=== PATIENT | female | born 1970 | race Caucasian/White ===

== ENCOUNTER 2017-09-29 05:28 | Inpatient (IN) ==
[2017-09-29] MEDS ORDERED: *HR* LORazepam 2 MG/ML VIAL IM ONE (05:43)
[2017-09-29] MEDS ORDERED: Haloperidol Lactate 5 MG/ML VIAL IM ONE (05:43)
[2017-09-29] MEDS ORDERED: 0.9 % Sodium Chloride 1,000 ML IVC ONE ×3 (05:59→15:12)
[2017-09-29 06:09] LABS: Basophils % 0.2 %; Hematocrit 39.2 % (35.3-44.9); Hemoglobin 13.5 g/dL (11.5-15.4); Immature Granulocytes % 0.4 % (0-4); Lymphocytes # 1.6 K/mcL (0.6-4.6); Lymphocytes % 15.2 %; Mean Corpuscular HGB Conc 34.4 g/dL (31.6-35.5); Mean Corpuscular Hemoglobin 29.5 pg (28.0-33.3); Mean Corpuscular Volume 85.8 fL (83.0-100.0); Mean Platelet Volume 9.8 fL (9.4-12.4); Monocytes # 0.6 K/mcL (0.0-1.3); Monocytes % 5.3 %; Neutrophils # 8.4 K/mcL (1.6-8.9); Platelet Count 235 K/mcL (140-400); Red Blood Count 4.57 M/mcL (3.82-4.97); Red Cell Distribution Width 12.7 % (11.5-14.5); Segmented Neutrophils % 78.9 %
[2017-09-29 06:17] LABS: INR 1.1
[2017-09-29] MEDS ORDERED: *HR* LORazepam 2 MG/ML VIAL ONE (06:17)
[2017-09-29 06:18] LABS: Bilirubin,Urine Negative (Negative); Blood,Urine Trace (Negative); Clarity,Urine Clear (Clear); Color,Urine Yellow (Yellow); Glucose,Urine (UA) Normal (Normal); Ketones,Urine Negative (Negative); Leukocyte Esterase,Urine Negative (Negative); Nitrite,Urine Negative (Negative); Protein,Urine Negative (Neg-Trace); Urobilinogen,Urine Normal (Normal)
[2017-09-29 06:19] LABS: Activated Partial Thrombo Time 30.2 Seconds (26.0-36.0)
[2017-09-29] MEDS ORDERED: *HR* LORazepam 2 MG/ML VIAL IVP ONE ×3 (06:19→08:25)
[2017-09-29 06:21] LABS: Bacteria,Urine None Seen per hpf (None-Few); Hyaline Casts,Urine None Seen per lpf (None-Few); RBC,Urine 0-3 per hpf (0-3); Squamous Epithelial Cell,Urine Many per lpf (None-Few); WBC,Urine 0-3 per hpf (0-3)
--- NOTE | 2017-09-29 06:21 | Emergency Department Note ---
Disposition Clinical Impression: Altered mental status Qualifiers: Altered mental status type: unspecified Qualified Code(s): R41.82 - Altered mental status, unspecified Disposition: Still a Patient Condition: Fair Referrals: Haja Loyd PAC [Primary Care Provider] - Forms: ED Satisfaction Letter Time of Disposition: 06:27 Altered Mental Status HPI - General Chief Complaint: ED Altered Mental Status Stated Complaint: altered mental status Time Seen by Provider: 09/29/17 05:42 Source: EMS Limitations: altered mental status Nursing Notes Reviewed: Yes Vital Signs Reviewed: Yes - History of Present Illness MD complaint: altered mental status Onset (ago): unknown Context: drug abuse, seizure disorder, history psychiatric disease, unknown, other (squad reports pt is known IVDU, with h/o seizure disorder, was found altered upon their arrival with household members reporting duration of "hours" ; ) Treatments prior to arrival: EMS treatment/medication - Related Data Home Medications Medication Instructions Recorded Confirmed Albuterol Sulfate [Proair Hfa] 1 - 2 puff IH Q6H 10/16/15 09/15/17 Alprazolam [Xanax] 1 mg PO TID 10/16/15 09/15/17 Budesonide/Formoterol 160/4.5 2 puff IH BID 10/16/15 09/15/17 [Symbicort 160/4.5] Lansoprazole [Prevacid] 30 mg PO HS 10/16/15 09/15/17 Mometasone Furoate [Nasonex] 17 gm NS DAILY 10/16/15 09/15/17 Nitroglycerin [Nitrostat] 0.4 mg SL AD PRN 10/16/15 09/15/17 Ropinirole HCl [Requip] 0.25 mg PO HS 10/16/15 09/15/17 Sertraline [Zoloft] 100 mg PO BID 10/16/15 09/15/17 Tiotropium [Spiriva] 18 mcg IH HS 10/16/15 09/15/17 Topiramate [Topamax] 50 mg PO QAM 10/16/15 09/15/17 Topiramate [Topamax] 100 mg PO HS 10/16/15 09/15/17 Trazodone HCl [TraZODone] 300 mg PO HS 10/16/15 09/15/17 Methocarbamol [Robaxin] 750 mg PO BID 07/30/16 09/15/17 Aspirin [Lo-Dose Aspirin EC] 81 mg PO DAILY 09/15/17 09/15/17 Atorvastatin [Lipitor] 40 mg PO HS 09/15/17 09/15/17 Clopidogrel [Plavix] 75 mg PO DAILY 09/15/17 09/15/17 Etodolac [Lodine] 400 mg PO BID 09/15/17 09/15/17 Folic Acid 0.8 mg PO DAILY 09/15/17 09/15/17 Gabapentin [Neurontin] 800 mg PO QID 09/15/17 09/15/17 HYDROcodone/Acet 10/325 mg [[place] 1 tab PO TID 09/15/17 09/15/17 10-325 mg] OLANZapine [Zyprexa] 10 mg PO DAILY 09/15/17 09/15/17 Allergies Allergy/AdvReac Type Severity Reaction Status Date / Time codeine Allergy Hives Verified 01/07/17 21:10 ondansetron Allergy See Verified 01/07/17 21:10 [From Zofran (as Comments hydrochloride)] propranolol [From Inderal LA] Allergy Hives Verified 01/07/17 21:10 tramadol [From Ultram] Allergy Hives Verified 01/07/17 21:10 ibuprofen AdvReac Nausea Verified 01/07/17 21:10 Limitations: ROS unobtainable due to patients medical condition Past Medical History - Past Medical History Medical history: Reports: COPD, coronary artery disease, CVA, GERD, hypertension , myocardial infarction Surgical history: Reports: angioplasty/stent, cholecystectomy, herniorrhaphy, hysterectomy, orthopedic, other Psychiatric history: Reports: anxiety, bipolar, depression, panic disorder, PTSD , prior suicide attempt [employer] history: Reports: bilateral tubal ligation - Social History Smoking Status: Current every day smoker Smokeless Tobacco Status: No Alcohol use: Reports: rarely Drug use: Reports: marijuana Physical Exam - General Limitations: altered mental status General appearance: alert, appears intoxicated, other - Head Head exam: atraumatic - Eye Eye exam: Absent: conjunctival injection - ENT ENT exam: normal oropharynx - Chest Chest inspection: Present: symmetric chest wall rise - Respiratory Respiratory exam: Absent: respiratory distress - Cardiovascular Cardiovascular exam: Present: tachycardia - Abdominal Exam Abdominal exam: Present: scar - Expanded Upper Extremity Exam Hand exam: Present: laceration (right hand, no active bleeding) - Back Exam Back exam: Present: full ROM - Skin Skin exam: Present: warm, dry Course Course Narrative: Pt see upon her arrival to exam room. Squad reports h/o IVDU, seizure disorder. She appears altered. Not responding to commands, verbaling but incoherent, agitated attempting to get out of bed. There is evidence of urinary incontinence. Tongue normal in appearance. Pupils not pinpoint. No evidence of airway compromise, or respiratory distress. 3cm Laceration to right palm with dried blood no active bleeding, otherwise no evidence of injury or trauma to face extremities . Pt is tachy and hypertensive. Will plan soft and chemical restraints and AMS workup. EKG shows SVT. Records and EKG reviewed with Dr. Luke, pt has known h/o of SVT. - Reevaluation(s) Reevaluation #1: Due to shift change care of this patient will be transferred to day shift provider Pauline Torres PA-C please see her documentation for details. Time: 06:27 Vital Signs Temperature 99.0 F 09/29/17 05:29 Pulse Rate 145 09/29/17 05:29 Respiratory Rate 20 09/29/17 05:29 Blood Pressure 188/135 09/29/17 05:29 O2 Sat by Pulse Oximetry 96 09/29/17 05:29 Temperature 99.0 F 09/29/17 05:29 Pulse Rate 145 09/29/17 05:29 Respiratory Rate 20 09/29/17 05:29 Blood Pressure 188/135 09/29/17 05:29 O2 Sat by Pulse Oximetry 96 09/29/17 05:29 Oxygen Delivery Oxygen Delivery Room Air Altered Mental Status - Medical Records Medical records reviewed: Yes I reviewed the patient's medical records. - Lab Data Result diagrams: 09/29/17 06:00 Lab Results 09/29/17 09/29/17 09/29/17 Range/Units 05:44 06:00 06:00 WBC 10.6 (4.3-11.1) K/mcL RBC 4.57 (3.82-4.97) M/mcL Hgb 13.5 (11.5-15.4) g/dL Hct 39.2 (35.3-44.9) % MCV 85.8 (83.0-100.0) fL MCH 29.5 (28.0-33.3) pg MCHC 34.4 (31.6-35.5) g/dL RDW 12.7 (11.5-14.5) % Plt Count 235 (140-400) K/mcL MPV 9.8 (9.4-12.4) fL Immature Gran % 0.4 (0-4) % Seg Neutrophils % 78.9 % Lymphocytes % 15.2 % Monocytes % 5.3 % Eosinophils % 0.0 % Basophils % 0.2 % Neutrophils # 8.4 (1.6-8.9) K/mcL Lymphocytes # 1.6 (0.6-4.6) K/mcL Monocytes # 0.6 (0.0-1.3) K/mcL Eosinophils # 0.0 (0.0-0.6) K/mcL Basophils # 0.0 (0.0-0.2) K/mcL PT 12.0 (9.4-12.1) Seconds INR 1.1 APTT 30.2 (26.0-36.0) Seconds POC Glucose 121 H (58-89) Urine Color (Yellow) Urine Clarity (Clear) Urine pH (5.0-8.0) pH Units Ur Specific [place] (1.010-1.025) Urine Protein (Neg-Trace) mg/dL Urine Glucose (UA) (Normal) mg/dL Urine Ketones (Negative) mg/dL Urine Blood (Negative) Urine Nitrite (Negative) Urine Bilirubin (Negative) Urine Urobilinogen (Normal) mg/dL Ur Leukocyte Esterase (Negative) Urine Microscopic RBC (0-3) per hpf Urine Microscopic WBC (0-3) per hpf Ur Squamous Epith Cells (None-Few) per lpf Urine Bacteria (None-Few) per hpf Hyaline Casts (None-Few) per lpf Ur Culture Indicated? (NO) Urine Test (Negative) Ethyl Alcohol (0-10) mg/dL 09/29/17 09/29/17 09/29/17 Range/Units 06:00 06:06 06:06 WBC (4.3-11.1) K/mcL RBC (3.82-4.97) M/mcL Hgb (11.5-15.4) g/dL Hct (35.3-44.9) % MCV (83.0-100.0) fL MCH (28.0-33.3) pg MCHC (31.6-35.5) g/dL RDW (11.5-14.5) % Plt Count (140-400) K/mcL MPV (9.4-12.4) fL Immature Gran % (0-4) % Seg Neutrophils % % Lymphocytes % % Monocytes % % Eosinophils % % Basophils % % Neutrophils # (1.6-8.9) K/mcL Lymphocytes # (0.6-4.6) K/mcL Monocytes # (0.0-1.3) K/mcL Eosinophils # (0.0-0.6) K/mcL Basophils # (0.0-0.2) K/mcL PT (9.4-12.1) Seconds INR APTT (26.0-36.0) Seconds POC Glucose (58-89) Urine Color Yellow (Yellow) Urine Clarity Clear (Clear) Urine pH 6.0 (5.0-8.0) pH Units Ur Specific [place] 1.010 (1.010-1.025) Urine Protein Negative (Neg-Trace) mg/dL Urine Glucose (UA) Normal (Normal) mg/dL Urine Ketones Negative (Negative) mg/dL Urine Blood Trace H (Negative) Urine Nitrite Negative (Negative) Urine Bilirubin Negative (Negative) Urine Urobilinogen Normal (Normal) mg/dL Ur Leukocyte Esterase Negative (Negative) Urine Microscopic RBC 0-3 (0-3) per hpf Urine Microscopic WBC 0-3 (0-3) per hpf Ur Squamous Epith Cells Many H (None-Few) per lpf Urine Bacteria None Seen (None-Few) per hpf Hyaline Casts None Seen (None-Few) per lpf Ur Culture Indicated? NO (NO) Urine Test Negative (Negative) Ethyl Alcohol < 10 (0-10) mg/dL TPA Checklist - LKW: 3-4.5 hrs Add. Warnings/Precautions Patient/family understanding: The patient/family members have been counseled and understood the risk, benefit , and alternatives of treatment. S.B.A.R. - S.B.A.Anjel Situation: Demographics, MOA Background: Presenting Complaint, Relevant PMH, Meds, & Allergies Assessment: Vital Signs Recommendation: Recommendation based on pending studies, treatments, or consults S.B.A.R. Report Given to: MITZI Up Repor Time: 06:27
[2017-09-29 06:22] LABS: Ethanol < 10 mg/dL (0-10)
[2017-09-29 06:24] LABS: Alanine Aminotransferase 11 Units/L (7-52); Albumin 4.7 g/dL (3.5-5.7); Albumin/Globulin Ratio 1.6 (1.1-2.2); Alkaline Phosphatase 82 Units/L (34-104); Aspartate Amino Transferase 20 Units/L (13-39); BUN/Creatinine Ratio 8 (6-26); Bilirubin,Direct 0.2 mg/dL (0.0-0.2); Bilirubin,Indirect 1.1 mg/dL (0.0-1.2); Bilirubin,Total 1.3 mg/dL (0.3-1.0); Blood Urea Nitrogen 7 mg/dL (6-20); Calcium 9.6 mg/dL (8.6-10.3); Carbon Dioxide 29 mEq/L (23-29); Chloride 103 mEq/L (98-107); Globulin 2.9 g/dL (2.4-3.5); Glucose 130 mg/dL (70-105); Osmolality,Calculated 292 (280-300); Sodium 141 mEq/L (136-145); Total Protein 7.6 g/dL (6.4-8.9); eGFR For African Americans > 60 (> 60); eGFR For Non-African Americans > 60 (> 60)
[2017-09-29 06:24] LABS: Amphetamine Screen,Urine Negative ng/mL (Cutoff=1000); Barbiturate Screen,Urine Negative ng/mL (Cutoff=200); Benzodiazepines Screen,Urine Negative ng/mL (Cutoff=200); Cannabinoid Screen,Urine Positive ng/mL (Cutoff = 50); Cocaine Screen,Urine Negative ng/mL (Cutoff= 300); Opiate Screen,Urine Negative ng/mL (Cutoff=300); Phencyclidine Screen,Urine Negative ng/mL (Cutoff=25)
[2017-09-29] MEDS ORDERED: *HR* Metoprolol 5 MG/5 ML VIAL IVP ONE (06:32)
--- NOTE | 2017-09-29 06:43 | Emergency Department Note ---
Disposition Clinical Impression: Altered mental status Qualifiers: Altered mental status type: unspecified Qualified Code(s): R41.82 - Altered mental status, unspecified Disposition: Still a Patient Condition: Fair General Adult HPI - General Chief complaint: ED Altered Mental Status Stated complaint: altered mental status Time Seen by Provider: 09/29/17 05:42 Source: EMS Limitations: altered mental status Nursing Notes Reviewed: Yes Vital Signs Reviewed: Yes - History of Present Illness Pain Scale: 0 - Related Data Home Medications Medication Instructions Recorded Confirmed Albuterol Sulfate [Proair Hfa] 1 - 2 puff IH Q6H 10/16/15 09/29/17 Alprazolam [Xanax] 1 mg PO TID 10/16/15 09/29/17 Budesonide/Formoterol 160/4.5 2 puff IH BID 10/16/15 09/29/17 [Symbicort 160/4.5] Lansoprazole [Prevacid] 30 mg PO HS 10/16/15 09/29/17 Nitroglycerin [Nitrostat] 0.4 mg SL AD PRN 10/16/15 09/29/17 Ropinirole HCl [Requip] 0.25 mg PO HS 10/16/15 09/29/17 Sertraline [Zoloft] 100 mg PO BID 10/16/15 09/29/17 Tiotropium [Spiriva] 18 mcg IH HS 10/16/15 09/29/17 Topiramate [Topamax] 50 mg PO QAM 10/16/15 09/29/17 Topiramate [Topamax] 100 mg PO HS 10/16/15 09/29/17 Trazodone HCl [TraZODone] 300 mg PO HS 10/16/15 09/29/17 Methocarbamol [Robaxin] 750 mg PO BID 07/30/16 09/29/17 Aspirin [Lo-Dose Aspirin EC] 81 mg PO DAILY 09/15/17 09/29/17 Atorvastatin [Lipitor] 40 mg PO HS 09/15/17 09/29/17 Clopidogrel [Plavix] 75 mg PO DAILY 09/15/17 09/29/17 Etodolac [Lodine] 400 mg PO BID 09/15/17 09/29/17 Folic Acid 0.8 mg PO DAILY 09/15/17 09/29/17 Gabapentin [Neurontin] 800 mg PO QID 09/15/17 09/29/17 Carvedilol 12.5 mg PO BID 09/29/17 09/29/17 Fluticasone Propionate Nasal 1 spr NS DAILY 09/29/17 09/29/17 [Flonase] HYDROcodone/Acet 5/325 mg [[place] 1 tab PO TID PRN 09/29/17 09/29/17 5-325 mg] Isosorbide MONOnitrate (24 HR) 30 mg PO DAILY 09/29/17 09/29/17 [Imdur] Losartan [Cozaar] 25 mg PO DAILY 09/29/17 09/29/17 Mv,Fe,Min/Lutein [A Thru Z Select 1 tab PO DAILY 09/29/17 09/29/17 Women's Tablet] Tolterodine LA (24 HR) [Detrol LA] 2 mg PO DAILY 09/29/17 09/29/17 Allergies Allergy/AdvReac Type Severity Reaction Status Date / Time codeine Allergy Hives Verified 01/07/17 21:10 ondansetron Allergy Rash Verified 09/29/17 07:50 [From Zofran (as hydrochloride)] propranolol [From Inderal LA] Allergy Hives Verified 01/07/17 21:10 tramadol [From Ultram] Allergy Hives Verified 01/07/17 21:10 ibuprofen AdvReac Nausea Verified 01/07/17 21:10 Past Medical History - Past Medical History Medical history: Reports: COPD, coronary artery disease, CVA, GERD, hypertension , myocardial infarction Surgical history: Reports: angioplasty/stent, cholecystectomy, herniorrhaphy, hysterectomy, orthopedic, other Psychiatric history: Reports: anxiety, bipolar, depression, panic disorder, PTSD , prior suicide attempt [employer] history: Reports: bilateral tubal ligation - Social History Smoking Status: Current every day smoker Smokeless Tobacco Status: No Alcohol use: Reports: rarely Drug use: Reports: marijuana Physical Exam - General Limitations: altered mental status General appearance: alert, appears intoxicated, other Course Course Narrative: Care of this patient was assumed from Myra Hanson PA-C. Please refer to his note for assessment and initial interventions. As patient continued to appear restless, and altered mental state, unable to answer any questions. She is agitated, protecting airway, heart rate ranging from 110-150. Multiple medical interventions to help decrease agitation and control heart rate. - Reevaluation(s) Reevaluation #1: Head CT negative, rectal temperature 100.2. Patient was a little less agitation at this time, does respond to painful stimuli. Pupils continue to be constricted, reactive to light. Respirations ~20 min, SP02 94% on RA, 02 2L applied for comfort, continues to protect airway on own. Bilateral lower extremity reflexes hyperreflexive, Babinski normal. Urine drug screen positive for marijuana, no alcohol. Pt on multiple SSRI's, possible serotonin syndrome as differential along with toxidrome of unknown substance. History of sz however, does not appear to be in a sz state or post-ictal state. Large amount UO that is clear yellow to fully bag. Time: 07:30 Reevaluation #2: Patient continues to be extremely agitated requiring benzodiazepine, decision to intubate patient to protect airway for proper sedation for further testing. Patient intubated with a 7.5 tube, 23 cm at the lip, chest x-ray confirmed placement. Patient sedated and intubated at this time respirations 100% oxygen. We will need ICU bed for further management. Spoke with family friend states patient last known well unknown however was exhibiting symptoms at 3:30 this morning. Time: 08:09 Reevaluation #3: Discussed case with the periodontist, agreeable to accept patient. Remains sedated and intubated tolerating while unrestrained. at bedside states last known well was approximately 2230 last night. States has been malaised and laying on the couch stating does not feel well for a few days prior to that. Spouse states did not notice any fevers, chills, coughing, emesis. He does state that she had garbled speech last night around 20-30 however this was no different than nightly routine as she takes medications for sleep that causes this as well. Transfer to ICU Time: 08:28 Vital Signs Temperature 99.0 F 09/29/17 05:29 Pulse Rate 145 09/29/17 05:29 Respiratory Rate 20 09/29/17 05:29 Blood Pressure 188/135 09/29/17 05:29 O2 Sat by Pulse Oximetry 96 09/29/17 05:29 Temperature 101.1 F H 09/29/17 10:00 Pulse Rate 123 09/29/17 12:00 Respiratory Rate 18 09/29/17 12:00 Blood Pressure 151/133 09/29/17 12:00 O2 Sat by Pulse Oximetry 100 09/29/17 12:00 Oxygen Delivery Oxygen Delivery [0746] Ambu Bag Oxygen Delivery [0742] Nasal Cannula Oxygen Delivery Ventilator Medical Decision Making - Lab Data Result diagrams: 09/29/17 06:00 09/29/17 06:00 Lab Results 09/29/17 09/29/17 09/29/17 Range/Units 05:44 06:00 06:00 WBC 10.6 (4.3-11.1) K/mcL RBC 4.57 (3.82-4.97) M/mcL Hgb 13.5 (11.5-15.4) g/dL Hct 39.2 (35.3-44.9) % MCV 85.8 (83.0-100.0) fL MCH 29.5 (28.0-33.3) pg MCHC 34.4 (31.6-35.5) g/dL RDW 12.7 (11.5-14.5) % Plt Count 235 (140-400) K/mcL MPV 9.8 (9.4-12.4) fL Immature Gran % 0.4 (0-4) % Seg Neutrophils % 78.9 % Lymphocytes % 15.2 % Monocytes % 5.3 % Eosinophils % 0.0 % Basophils % 0.2 % Neutrophils # 8.4 (1.6-8.9) K/mcL Lymphocytes # 1.6 (0.6-4.6) K/mcL Monocytes # 0.6 (0.0-1.3) K/mcL Eosinophils # 0.0 (0.0-0.6) K/mcL Basophils # 0.0 (0.0-0.2) K/mcL PT 12.0 (9.4-12.1) Seconds INR 1.1 APTT 30.2 (26.0-36.0) Seconds ABG pH (7.32-7.45) pH Units ABG pCO2 (35-45) mmHg ABG pO2 (85-104) mmHg ABG HCO3 (21-27) mEq/L ABG Total CO2 (20-26) mEq/L ABG O2 Saturation (95-98) % ABG Base Excess (-2 to 3) mEq/L Respiration Rate O2 Delivery Device Blood Gas Modality Inspired O2 (1-15=lpm [id number]=%) Tidal Volume cc PEEP cm H2O Sodium (136-145) mEq/L Potassium (3.5-5.1) mEq/L Chloride (98-107) mEq/L Carbon Dioxide (23-29) mEq/L BUN (6-20) mg/dL Creatinine (0.60-1.20) mg/dL Est GFR ( Amer) (> 60) Est GFR (Non-Af Amer) (> 60) BUN/Creatinine Ratio (6-26) Glucose (70-105) mg/dL POC Glucose 121 H (58-89) Calculated Osmolality (280-300) Calcium (8.6-10.3) mg/dL Magnesium (1.6-2.6) mg/dL Total Bilirubin (0.3-1.0) mg/dL Direct Bilirubin (0.0-0.2) mg/dL Indirect Bilirubin (0.0-1.2) mg/dL AST (13-39) Units/L ALT (7-52) Units/L Alkaline Phosphatase (34-104) Units/L Creatine Kinase (30-223) Units/L Troponin I (< 0.04) ng/mL Serum Total Protein (6.4-8.9) g/dL Albumin (3.5-5.7) g/dL Globulin (2.4-3.5) g/dL Albumin/Globulin Ratio (1.1-2.2) TSH (0.340-5.600) mcIU/mL Urine Color (Yellow) Urine Clarity (Clear) Urine pH (5.0-8.0) pH Units Ur Specific [place] (1.010-1.025) Urine Protein (Neg-Trace) mg/dL Urine Glucose (UA) (Normal) mg/dL Urine Ketones (Negative) mg/dL Urine Blood (Negative) Urine Nitrite (Negative) Urine Bilirubin (Negative) Urine Urobilinogen (Normal) mg/dL Ur Leukocyte Esterase (Negative) Urine Microscopic RBC (0-3) per hpf Urine Microscopic WBC (0-3) per hpf Ur Squamous Epith Cells (None-Few) per lpf Urine Bacteria (None-Few) per hpf Hyaline Casts (None-Few) per lpf Ur Culture Indicated? (NO) Urine Test (Negative) Urine Opiates Screen (Pmaesn=255) ng/mL Ur Barbiturates Screen (Jdlhdz=895) ng/mL Ur Phencyclidine Scrn (Cutoff=25) ng/mL Ur Amphetamines Screen (Oqhtwi=6617) ng/mL U Benzodiazepines Scrn (Jlbyop=704) ng/mL Urine Cocaine Screen (Cutoff= 300) ng/mL U Marijuana (THC) Screen (Cutoff = 50) ng/mL Ethyl Alcohol (0-10) mg/dL 09/29/17 09/29/17 09/29/17 Range/Units 06:00 06:00 06:00 WBC (4.3-11.1) K/mcL RBC (3.82-4.97) M/mcL Hgb (11.5-15.4) g/dL Hct (35.3-44.9) % MCV (83.0-100.0) fL MCH (28.0-33.3) pg MCHC (31.6-35.5) g/dL RDW (11.5-14.5) % Plt Count (140-400) K/mcL MPV (9.4-12.4) fL Immature Gran % (0-4) % Seg Neutrophils % % Lymphocytes % % Monocytes % % Eosinophils % % Basophils % % Neutrophils # (1.6-8.9) K/mcL Lymphocytes # (0.6-4.6) K/mcL Monocytes # (0.0-1.3) K/mcL Eosinophils # (0.0-0.6) K/mcL Basophils # (0.0-0.2) K/mcL PT (9.4-12.1) Seconds INR APTT (26.0-36.0) Seconds ABG pH (7.32-7.45) pH Units ABG pCO2 (35-45) mmHg ABG pO2 (85-104) mmHg ABG HCO3 (21-27) mEq/L ABG Total CO2 (20-26) mEq/L ABG O2 Saturation (95-98) % ABG Base Excess (-2 to 3) mEq/L Respiration Rate O2 Delivery Device Blood Gas Modality Inspired O2 (1-15=lpm [id number]=%) Tidal Volume cc PEEP cm H2O Sodium 141 (136-145) mEq/L Potassium 3.0 L (3.5-5.1) mEq/L Chloride 103 (98-107) mEq/L Carbon Dioxide 29 (23-29) mEq/L BUN 7 (6-20) mg/dL Creatinine 0.87 (0.60-1.20) mg/dL Est GFR ( Amer) > 60 (> 60) Est GFR (Non-Af Amer) > 60 (> 60) BUN/Creatinine Ratio 8 (6-26) Glucose 130 H (70-105) mg/dL POC Glucose (58-89) Calculated Osmolality 292 (280-300) Calcium 9.6 (8.6-10.3) mg/dL Magnesium 1.6 (1.6-2.6) mg/dL Total Bilirubin 1.3 H (0.3-1.0) mg/dL Direct Bilirubin 0.2 (0.0-0.2) mg/dL Indirect Bilirubin 1.1 (0.0-1.2) mg/dL AST 20 (13-39) Units/L ALT 11 (7-52) Units/L Alkaline Phosphatase 82 (34-104) Units/L Creatine Kinase (30-223) Units/L Troponin I < 0.03 (< 0.04) ng/mL Serum Total Protein 7.6 (6.4-8.9) g/dL Albumin 4.7 (3.5-5.7) g/dL Globulin 2.9 (2.4-3.5) g/dL Albumin/Globulin Ratio 1.6 (1.1-2.2) TSH 5.160 (0.340-5.600) mcIU/mL Urine Color (Yellow) Urine Clarity (Clear) Urine pH (5.0-8.0) pH Units Ur Specific [place] (1.010-1.025) Urine Protein (Neg-Trace) mg/dL Urine Glucose (UA) (Normal) mg/dL Urine Ketones (Negative) mg/dL Urine Blood (Negative) Urine Nitrite (Negative) Urine Bilirubin (Negative) Urine Urobilinogen (Normal) mg/dL Ur Leukocyte Esterase (Negative) Urine Microscopic RBC (0-3) per hpf Urine Microscopic WBC (0-3) per hpf Ur Squamous Epith Cells (None-Few) per lpf Urine Bacteria (None-Few) per hpf Hyaline Casts (None-Few) per lpf Ur Culture Indicated? (NO) Urine Test (Negative) Urine Opiates Screen (Yjtyql=962) ng/mL Ur Barbiturates Screen (Sogqul=382) ng/mL Ur Phencyclidine Scrn (Cutoff=25) ng/mL Ur Amphetamines Screen (Obmtig=0489) ng/mL U Benzodiazepines Scrn (Xzvgqd=202) ng/mL Urine Cocaine Screen (Cutoff= 300) ng/mL U Marijuana (THC) Screen (Cutoff = 50) ng/mL Ethyl Alcohol < 10 (0-10) mg/dL 09/29/17 09/29/17 09/29/17 Range/Units 06:06 06:06 06:06 WBC (4.3-11.1) K/mcL RBC (3.82-4.97) M/mcL Hgb (11.5-15.4) g/dL Hct (35.3-44.9) % MCV (83.0-100.0) fL MCH (28.0-33.3) pg MCHC (31.6-35.5) g/dL RDW (11.5-14.5) % Plt Count (140-400) K/mcL MPV (9.4-12.4) fL Immature Gran % (0-4) % Seg Neutrophils % % Lymphocytes % % Monocytes % % Eosinophils % % Basophils % % Neutrophils # (1.6-8.9) K/mcL Lymphocytes # (0.6-4.6) K/mcL Monocytes # (0.0-1.3) K/mcL Eosinophils # (0.0-0.6) K/mcL Basophils # (0.0-0.2) K/mcL PT (9.4-12.1) Seconds INR APTT (26.0-36.0) Seconds ABG pH (7.32-7.45) pH Units ABG pCO2 (35-45) mmHg ABG pO2 (85-104) mmHg ABG HCO3 (21-27) mEq/L ABG Total CO2 (20-26) mEq/L ABG O2 Saturation (95-98) % ABG Base Excess (-2 to 3) mEq/L Respiration Rate O2 Delivery Device Blood Gas Modality Inspired O2 (1-15=lpm ca07-923=%) Tidal Volume cc PEEP cm H2O Sodium (136-145) mEq/L Potassium (3.5-5.1) mEq/L Chloride (98-107) mEq/L Carbon Dioxide (23-29) mEq/L BUN (6-20) mg/dL Creatinine (0.60-1.20) mg/dL Est GFR ( Amer) (> 60) Est GFR (Non-Af Amer) (> 60) BUN/Creatinine Ratio (6-26) Glucose (70-105) mg/dL POC Glucose (58-89) Calculated Osmolality (280-300) Calcium (8.6-10.3) mg/dL Magnesium (1.6-2.6) mg/dL Total Bilirubin (0.3-1.0) mg/dL Direct Bilirubin (0.0-0.2) mg/dL Indirect Bilirubin (0.0-1.2) mg/dL AST (13-39) Units/L ALT (7-52) Units/L Alkaline Phosphatase (34-104) Units/L Creatine Kinase (30-223) Units/L Troponin I (< 0.04) ng/mL Serum Total Protein (6.4-8.9) g/dL Albumin (3.5-5.7) g/dL Globulin (2.4-3.5) g/dL Albumin/Globulin Ratio (1.1-2.2) TSH (0.340-5.600) mcIU/mL Urine Color Yellow (Yellow) Urine Clarity Clear (Clear) Urine pH 6.0 (5.0-8.0) pH Units Ur Specific [place] 1.010 (1.010-1.025) Urine Protein Negative (Neg-Trace) mg/dL Urine Glucose (UA) Normal (Normal) mg/dL Urine Ketones Negative (Negative) mg/dL Urine Blood Trace H (Negative) Urine Nitrite Negative (Negative) Urine Bilirubin Negative (Negative) Urine Urobilinogen Normal (Normal) mg/dL Ur Leukocyte Esterase Negative (Negative) Urine Microscopic RBC 0-3 (0-3) per hpf Urine Microscopic WBC 0-3 (0-3) per hpf Ur Squamous Epith Cells Many H (None-Few) per lpf Urine Bacteria None Seen (None-Few) per hpf Hyaline Casts None Seen (None-Few) per lpf Ur Culture Indicated? NO (NO) Urine Test Negative (Negative) Urine Opiates Screen Negative (Uenzce=516) ng/mL Ur Barbiturates Screen Negative (Loxtjx=447) ng/mL Ur Phencyclidine Scrn Negative (Cutoff=25) ng/mL Ur Amphetamines Screen Negative (Nptoja=9289) ng/mL U Benzodiazepines Scrn Negative (Movpmb=640) ng/mL Urine Cocaine Screen Negative (Cutoff= 300) ng/mL U Marijuana (THC) Screen Positive H (Cutoff = 50) ng/mL Ethyl Alcohol (0-10) mg/dL 09/29/17 09/29/17 Range/Units 06:58 08:25 WBC (4.3-11.1) K/mcL RBC (3.82-4.97) M/mcL Hgb (11.5-15.4) g/dL Hct (35.3-44.9) % MCV (83.0-100.0) fL MCH (28.0-33.3) pg MCHC (31.6-35.5) g/dL RDW (11.5-14.5) % Plt Count (140-400) K/mcL MPV (9.4-12.4) fL Immature Gran % (0-4) % Seg Neutrophils % % Lymphocytes % % Monocytes % % Eosinophils % % Basophils % % Neutrophils # (1.6-8.9) K/mcL Lymphocytes # (0.6-4.6) K/mcL Monocytes # (0.0-1.3) K/mcL Eosinophils # (0.0-0.6) K/mcL Basophils # (0.0-0.2) K/mcL PT (9.4-12.1) Seconds INR APTT (26.0-36.0) Seconds ABG pH 7.39 (7.32-7.45) pH Units ABG pCO2 46 H (35-45) mmHg ABG pO2 357 H (85-104) mmHg ABG HCO3 27 (21-27) mEq/L ABG Total CO2 29 H (20-26) mEq/L ABG O2 Saturation 100 H (95-98) % ABG Base Excess 2 (-2 to 3) mEq/L Respiration Rate 14 O2 Delivery Device Adult Vent Blood Gas Modality VC Inspired O2 70.0 (1-15=lpm nj06-340=%) Tidal Volume 450 cc PEEP 5 cm H2O Sodium (136-145) mEq/L Potassium (3.5-5.1) mEq/L Chloride (98-107) mEq/L Carbon Dioxide (23-29) mEq/L BUN (6-20) mg/dL Creatinine (0.60-1.20) mg/dL Est GFR ( Amer) (> 60) Est GFR (Non-Af Amer) (> 60) BUN/Creatinine Ratio (6-26) Glucose (70-105) mg/dL POC Glucose (58-89) Calculated Osmolality (280-300) Calcium (8.6-10.3) mg/dL Magnesium (1.6-2.6) mg/dL Total Bilirubin (0.3-1.0) mg/dL Direct Bilirubin (0.0-0.2) mg/dL Indirect Bilirubin (0.0-1.2) mg/dL AST (13-39) Units/L ALT (7-52) Units/L Alkaline Phosphatase (34-104) Units/L Creatine Kinase 477 H (30-223) Units/L Troponin I (< 0.04) ng/mL Serum Total Protein (6.4-8.9) g/dL Albumin (3.5-5.7) g/dL Globulin (2.4-3.5) g/dL Albumin/Globulin Ratio (1.1-2.2) TSH (0.340-5.600) mcIU/mL Urine Color (Yellow) Urine Clarity (Clear) Urine pH (5.0-8.0) pH Units Ur Specific [place] (1.010-1.025) Urine Protein (Neg-Trace) mg/dL Urine Glucose (UA) (Normal) mg/dL Urine Ketones (Negative) mg/dL Urine Blood (Negative) Urine Nitrite (Negative) Urine Bilirubin (Negative) Urine Urobilinogen (Normal) mg/dL Ur Leukocyte Esterase (Negative) Urine Microscopic RBC (0-3) per hpf Urine Microscopic WBC (0-3) per hpf Ur Squamous Epith Cells (None-Few) per lpf Urine Bacteria (None-Few) per hpf Hyaline Casts (None-Few) per lpf Ur Culture Indicated? (NO) Urine Test (Negative) Urine Opiates Screen (Xegfxa=385) ng/mL Ur Barbiturates Screen (Pchfjk=769) ng/mL Ur Phencyclidine Scrn (Cutoff=25) ng/mL Ur Amphetamines Screen (Pzionr=4418) ng/mL U Benzodiazepines Scrn (Aeroyx=405) ng/mL Urine Cocaine Screen (Cutoff= 300) ng/mL U Marijuana (THC) Screen (Cutoff = 50) ng/mL Ethyl Alcohol (0-10) mg/dL
--- NOTE | 2017-09-29 06:49 | Emergency Department Note ---
START Narrative - START START: I have personally performed a face to face evaluation on this patient. I have reviewed and agree with the care plan. History and Exam by me shows: 47 yo F presented to the ER with AMS. it was unclear if it was metabolic, intracranial, or drug related. hx of SVT. pt's HR has been elevated as she is very agitated. we have ordered benzo's, haldol, benadryl. will start ams workup dr peters to follow up with STONE Carpenter.
[2017-09-29] MEDS ORDERED: *HR* FentaNYL (PF) 100 MCG/2 ML VIAL ONE (07:30)
[2017-09-29] MEDS ORDERED: 0.9 % Sodium Chloride 1,000 ML ONE (07:41)
[2017-09-29] MEDS ORDERED: Propofol 500 MG/50 ML INFUS..BTL ONE (07:50)
--- NOTE | 2017-09-29 08:03 | Emergency Department Note ---
Disposition Clinical Impression: Altered mental status Qualifiers: Altered mental status type: unspecified Qualified Code(s): R41.82 - Altered mental status, unspecified Disposition: Still a Patient Condition: Fair Referrals: Haja Loyd, PAC [Primary Care Provider] - Forms: ED Satisfaction Letter General Adult HPI - General Chief complaint: ED Altered Mental Status Stated complaint: altered mental status Time Seen by Provider: 09/29/17 05:42 Source: EMS Mode of arrival: EMS Limitations: altered mental status Nursing Notes Reviewed: Yes Vital Signs Reviewed: Yes - History of Present Illness HPI Narrative: Patient is a 47-year-old white female who was a sign out to me by Dr. Luke upon starting my shift at 7 AM, who arrived at approximately 5:15 AM I EMS with reported altered mental status. After review of EMS documentation and charting up to this point it appears that patient was found by family at approximately 3 AM with reported altered mental status, frequent falls, garbled speech and confusion as well as some mild agitation. Family had called EMS for transport to the ER for evaluation. Patient appears to have prior cardiac history including SVT as well as prior remote cerebral infarcts on MRI from last year. Patient was found by medics to have a superficial laceration to the right palm as well as some minor superficial abrasions noted to bilateral lower extremities. Unclear if with these falls at home she had any history of trauma related to them. On my assessment patient is restless in the bed and currently restrained 4 with soft restraints. She will not open eyes or respond to voice and only localizes to pain. Patient has a history of a seizure disorder, was not reported to have any witnessed seizure activity at home prior to arrival by family and is not having any active seizure activity here in the ED. Patient up to this point is Huan had a complete evaluation including full lab panel, urinalysis, CT head imaging as well as chest x-ray, EKGs been performed. Patient has been extremely tachycardic hypertensive prior to my assessment. Patient has received up to this point Haldol IV, Ativan, a liter of fluids, and Benadryl. Patient is unable to provide any history neuro no family at bedside to obtain additional history from. I have asked the mid-level provider to attempt to contact family at home to see if anyone will be coming to provide additional history. Patient's CT head is unremarkable, portable chest x-ray is unremarkable. Patient is afebrile, sinus tach in the 1 teens, and hypertensive. Based on patient's decreased mental status at this point the decision was made to electively intubate the patient for airway protection. At this time there is no indication as to the cause of the patient's altered mental status. Urine drug screen just shows positive marijuana, EtOH is negative and overall labs remain fairly unremarkable. Pain Scale: 0 - Related Data Home Medications Medication Instructions Recorded Confirmed Albuterol Sulfate [Proair Hfa] 1 - 2 puff IH Q6H 10/16/15 09/29/17 Alprazolam [Xanax] 1 mg PO TID 10/16/15 09/29/17 Budesonide/Formoterol 160/4.5 2 puff IH BID 10/16/15 09/29/17 [Symbicort 160/4.5] Lansoprazole [Prevacid] 30 mg PO HS 10/16/15 09/29/17 Nitroglycerin [Nitrostat] 0.4 mg SL AD PRN 10/16/15 09/29/17 Ropinirole HCl [Requip] 0.25 mg PO HS 10/16/15 09/29/17 Sertraline [Zoloft] 100 mg PO BID 10/16/15 09/29/17 Tiotropium [Spiriva] 18 mcg IH HS 10/16/15 09/29/17 Topiramate [Topamax] 50 mg PO QAM 10/16/15 09/29/17 Topiramate [Topamax] 100 mg PO HS 10/16/15 09/29/17 Trazodone HCl [TraZODone] 300 mg PO HS 10/16/15 09/29/17 Methocarbamol [Robaxin] 750 mg PO BID 07/30/16 09/29/17 Aspirin [Lo-Dose Aspirin EC] 81 mg PO DAILY 09/15/17 09/29/17 Atorvastatin [Lipitor] 40 mg PO HS 09/15/17 09/29/17 Clopidogrel [Plavix] 75 mg PO DAILY 09/15/17 09/29/17 Etodolac [Lodine] 400 mg PO BID 09/15/17 09/29/17 Folic Acid 0.8 mg PO DAILY 09/15/17 09/29/17 Gabapentin [Neurontin] 800 mg PO QID 09/15/17 09/29/17 Carvedilol 12.5 mg PO BID 09/29/17 09/29/17 Fluticasone Propionate Nasal 1 spr NS DAILY 09/29/17 09/29/17 [Flonase] HYDROcodone/Acet 5/325 mg [[place] 1 tab PO TID PRN 09/29/17 09/29/17 5-325 mg] Isosorbide MONOnitrate (24 HR) 30 mg PO DAILY 09/29/17 09/29/17 [Imdur] Losartan [Cozaar] 25 mg PO DAILY 09/29/17 09/29/17 Mv,Fe,Min/Lutein [A Thru Z Select 1 tab PO DAILY 09/29/17 09/29/17 Women's Tablet] Tolterodine LA (24 HR) [Detrol LA] 2 mg PO DAILY 09/29/17 09/29/17 Allergies Allergy/AdvReac Type Severity Reaction Status Date / Time codeine Allergy Hives Verified 01/07/17 21:10 ondansetron Allergy Rash Verified 09/29/17 07:50 [From Zofran (as hydrochloride)] propranolol [From Inderal LA] Allergy Hives Verified 01/07/17 21:10 tramadol [From Ultram] Allergy Hives Verified 01/07/17 21:10 ibuprofen AdvReac Nausea Verified 01/07/17 21:10 Limitations: ROS unobtainable due to patients medical condition Past Medical History - Past Medical History Medical history: Reports: COPD, coronary artery disease, CVA, GERD, hypertension , myocardial infarction Surgical history: Reports: angioplasty/stent, cholecystectomy, herniorrhaphy, hysterectomy, orthopedic, other Psychiatric history: Reports: anxiety, bipolar, depression, panic disorder, PTSD , prior suicide attempt 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 Absent: scleral icterus, periorbital swelling, periorbital tenderness - ENT ENT exam: normal oropharynx, mucous membranes dry, TM's normal bilaterally - Neck Neck exam: Present: normal inspection, full ROM. Absent: lymphadenopathy - Chest Chest inspection: Present: normal inspection, symmetric chest wall rise - Respiratory Respiratory exam: Present: normal lung sounds bilaterally - Cardiovascular Cardiovascular exam: Present: normal rhythm, tachycardia, normal heart sounds - Abdominal Exam Abdominal exam: Present: soft, normal bowel sounds. Absent: distention, guarding, rebound, rigidity - Rectal Exam Rectal exam: Present: deferred - Extremities Exam Extremities exam: Present: normal inspection, normal capillary refill, other. Absent: pedal edema - Back Exam Back exam: Present: normal inspection - Neurological Exam Neurological exam: Present: reflexes normal, other (pt moving ext x 4 , unable to further assess due to mental status.) - Skin Skin exam: Present: warm, dry, other (pt with 3 cm linear superficial lac to R palm, bleeding controlled. Pt with superficial abrasions to bilateral LE's.) Course Course Narrative: Patient is a 47-year-old female who is brought to the emergency department early this morning for altered mental status. Patient was signed out to me by Dr. Luke. Patient had a complete workup including lab evaluation urinalysis urine tox screen, EKG, chest x-ray and head CT when the patient was signed out to me. It was unclear at the point of transfer of care as to the cause of the patient's altered mental status. Patient has been tachycardic and hypertensive since arrival. Patient has received one dose of Lopressor prior to my assessment for tachycardia. Following my initial evaluation I decided to intubate the patient for airway protection. Please see procedure note for details of intubation. Patient was electively intubated with RSI. Patient was intubated without difficulty and successfully on first attempt. We will place an NG tube and obtained portal chest x-ray. Patient had no episode of hypoxia or altered vital signs during intubation. Repeat vitals following intubation is a heart rate of 120 sinus tach, blood pressure 150/97. We initiated sedation with propofol. - Reevaluation(s) Reevaluation #1: The patient is restless following intubation. Chest x-ray shows good ET tube position nurses had trouble putting an NG tube in place due to agitation. We have increased her dipper van drip, and administered an additional dose of Ativan. I have added a thyroid testing. Family is now present patient's father and significant other. They state that last night prior to bedtime patient was very sedate which they report is typical for her and she takes Neurontin and sleep aids prior to bed. They state that she had some garbled speech which was about 10 PM last night. 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 He also reports that she was saying she had not felt good for the last 3 days and just had been complaining of fatigue and generalized malaise and had been laying on the couch with decreased activity and by mouth intake over the past 72 hours. Family denies any known fevers, cough URI symptoms, no vomiting or fluid losses. They do not feel that she would have taken additional medications in an attempt to harm herself last night and she has no prior suicidal homicidal ideation. Family stated that she does have a seizure disorder and that 5 days ago she had a breakthrough seizure home that was witnessed, family state they question the use when they occur as she has "faked seizures in the past" per her family members. They report that this morning about 2 AM that she had gotten up out of bed and had fallen a few times on her way to the bathroom. Family denies any injuries but state when they attempted to talk with her speech was very slurred and garbled and she "was not making any sense". This is when the family decided to call EMS to have her brought for evaluation. Time: 08:26 Vital Signs Temperature 99.0 F 09/29/17 05:29 Pulse Rate 145 09/29/17 05:29 Respiratory Rate 20 09/29/17 05:29 Blood Pressure 188/135 09/29/17 05:29 O2 Sat by Pulse Oximetry 96 09/29/17 05:29 Temperature 100.2 F H 09/29/17 07:03 Pulse Rate 96 09/29/17 08:22 Respiratory Rate 13 09/29/17 08:22 Blood Pressure 205/109 09/29/17 08:22 O2 Sat by Pulse Oximetry 100 09/29/17 08:22 Oxygen Delivery Oxygen Delivery [] Ambu Bag Oxygen Delivery [] Nasal Cannula Oxygen Delivery Ventilator Procedures - Intubation Time out performed: Yes sedative: Etomidate Mg Given: 20 paralytic: Succinylcholine Mg Given: 100 Laryngoscope: Lyly ET Tube Size: 7.5 ET Tube Uncuffed: No Tube Secured Depth (cm): 23 Tube Secured Location: lips Tube Placement Confirmation: visualized tube passing through cords, equal breath sounds bilaterally, no breath sounds over epigastrium, confirmation by capnometry Patient Tolerated Procedure: well, no complications Intubation Complications: none Medical Decision Making - Medical Records Medical records reviewed: Yes I reviewed the patient's medical records. - Lab Data Lab results reviewed: Yes I reviewed the patient's lab results. Result diagrams: 09/29/17 06:00 09/29/17 06:00 Lab Results 09/29/17 09/29/17 09/29/17 Range/Units 05:44 06:00 06:00 WBC 10.6 (4.3-11.1) K/mcL RBC 4.57 (3.82-4.97) M/mcL Hgb 13.5 (11.5-15.4) g/dL Hct 39.2 (35.3-44.9) % MCV 85.8 (83.0-100.0) fL MCH 29.5 (28.0-33.3) pg MCHC 34.4 (31.6-35.5) g/dL RDW 12.7 (11.5-14.5) % Plt Count 235 (140-400) K/mcL MPV 9.8 (9.4-12.4) fL Immature Gran % 0.4 (0-4) % Seg Neutrophils % 78.9 % Lymphocytes % 15.2 % Monocytes % 5.3 % Eosinophils % 0.0 % Basophils % 0.2 % Neutrophils # 8.4 (1.6-8.9) K/mcL Lymphocytes # 1.6 (0.6-4.6) K/mcL Monocytes # 0.6 (0.0-1.3) K/mcL Eosinophils # 0.0 (0.0-0.6) K/mcL Basophils # 0.0 (0.0-0.2) K/mcL PT 12.0 (9.4-12.1) Seconds INR 1.1 APTT 30.2 (26.0-36.0) Seconds Sodium (136-145) mEq/L Potassium (3.5-5.1) mEq/L Chloride (98-107) mEq/L Carbon Dioxide (23-29) mEq/L BUN (6-20) mg/dL Creatinine (0.60-1.20) mg/dL Est GFR ( Amer) (> 60) Est GFR (Non-Af Amer) (> 60) BUN/Creatinine Ratio (6-26) Glucose (70-105) mg/dL POC Glucose 121 H (58-89) Calculated Osmolality (280-300) Calcium (8.6-10.3) mg/dL Total Bilirubin (0.3-1.0) mg/dL Direct Bilirubin (0.0-0.2) mg/dL Indirect Bilirubin (0.0-1.2) mg/dL AST (13-39) Units/L ALT (7-52) Units/L Alkaline Phosphatase (34-104) Units/L Creatine Kinase (30-223) Units/L Troponin I (< 0.04) ng/mL Serum Total Protein (6.4-8.9) g/dL Albumin (3.5-5.7) g/dL Globulin (2.4-3.5) g/dL Albumin/Globulin Ratio (1.1-2.2) Urine Color (Yellow) Urine Clarity (Clear) Urine pH (5.0-8.0) pH Units Ur Specific [place] (1.010-1.025) Urine Protein (Neg-Trace) mg/dL Urine Glucose (UA) (Normal) mg/dL Urine Ketones (Negative) mg/dL Urine Blood (Negative) Urine Nitrite (Negative) Urine Bilirubin (Negative) Urine Urobilinogen (Normal) mg/dL Ur Leukocyte Esterase (Negative) Urine Microscopic RBC (0-3) per hpf Urine Microscopic WBC (0-3) per hpf Ur Squamous Epith Cells (None-Few) per lpf Urine Bacteria (None-Few) per hpf Hyaline Casts (None-Few) per lpf Ur Culture Indicated? (NO) Urine Test (Negative) Urine Opiates Screen (Qhzjkp=893) ng/mL Ur Barbiturates Screen (Xepgmj=038) ng/mL Ur Phencyclidine Scrn (Cutoff=25) ng/mL Ur Amphetamines Screen (Rajrie=4295) ng/mL U Benzodiazepines Scrn (Xodkwy=612) ng/mL Urine Cocaine Screen (Cutoff= 300) ng/mL U Marijuana (THC) Screen (Cutoff = 50) ng/mL Ethyl Alcohol (0-10) mg/dL 09/29/17 09/29/17 09/29/17 Range/Units 06:00 06:00 06:06 WBC (4.3-11.1) K/mcL RBC (3.82-4.97) M/mcL Hgb (11.5-15.4) g/dL Hct (35.3-44.9) % MCV (83.0-100.0) fL MCH (28.0-33.3) pg MCHC (31.6-35.5) g/dL RDW (11.5-14.5) % Plt Count (140-400) K/mcL MPV (9.4-12.4) fL Immature Gran % (0-4) % Seg Neutrophils % % Lymphocytes % % Monocytes % % Eosinophils % % Basophils % % Neutrophils # (1.6-8.9) K/mcL Lymphocytes # (0.6-4.6) K/mcL Monocytes # (0.0-1.3) K/mcL Eosinophils # (0.0-0.6) K/mcL Basophils # (0.0-0.2) K/mcL PT (9.4-12.1) Seconds INR APTT (26.0-36.0) Seconds Sodium 141 (136-145) mEq/L Potassium 3.0 L (3.5-5.1) mEq/L Chloride 103 (98-107) mEq/L Carbon Dioxide 29 (23-29) mEq/L BUN 7 (6-20) mg/dL Creatinine 0.87 (0.60-1.20) mg/dL Est GFR ( Amer) > 60 (> 60) Est GFR (Non-Af Amer) > 60 (> 60) BUN/Creatinine Ratio 8 (6-26) Glucose 130 H (70-105) mg/dL POC Glucose (58-89) Calculated Osmolality 292 (280-300) Calcium 9.6 (8.6-10.3) mg/dL Total Bilirubin 1.3 H (0.3-1.0) mg/dL Direct Bilirubin 0.2 (0.0-0.2) mg/dL Indirect Bilirubin 1.1 (0.0-1.2) mg/dL AST 20 (13-39) Units/L ALT 11 (7-52) Units/L Alkaline Phosphatase 82 (34-104) Units/L Creatine Kinase (30-223) Units/L Troponin I < 0.03 (< 0.04) ng/mL Serum Total Protein 7.6 (6.4-8.9) g/dL Albumin 4.7 (3.5-5.7) g/dL Globulin 2.9 (2.4-3.5) g/dL Albumin/Globulin Ratio 1.6 (1.1-2.2) Urine Color Yellow (Yellow) Urine Clarity Clear (Clear) Urine pH 6.0 (5.0-8.0) pH Units Ur Specific [place] 1.010 (1.010-1.025) Urine Protein Negative (Neg-Trace) mg/dL Urine Glucose (UA) Normal (Normal) mg/dL Urine Ketones Negative (Negative) mg/dL Urine Blood Trace H (Negative) Urine Nitrite Negative (Negative) Urine Bilirubin Negative (Negative) Urine Urobilinogen Normal (Normal) mg/dL Ur Leukocyte Esterase Negative (Negative) Urine Microscopic RBC 0-3 (0-3) per hpf Urine Microscopic WBC 0-3 (0-3) per hpf Ur Squamous Epith Cells Many H (None-Few) per lpf Urine Bacteria None Seen (None-Few) per hpf Hyaline Casts None Seen (None-Few) per lpf Ur Culture Indicated? NO (NO) Urine Test (Negative) Urine Opiates Screen (Vgkupm=563) ng/mL Ur Barbiturates Screen (Svactr=025) ng/mL Ur Phencyclidine Scrn (Cutoff=25) ng/mL Ur Amphetamines Screen (Lrklrm=2449) ng/mL U Benzodiazepines Scrn (Zcyihf=755) ng/mL Urine Cocaine Screen (Cutoff= 300) ng/mL U Marijuana (THC) Screen (Cutoff = 50) ng/mL Ethyl Alcohol < 10 (0-10) mg/dL 09/29/17 09/29/17 09/29/17 Range/Units 06:06 06:06 06:58 WBC (4.3-11.1) K/mcL RBC (3.82-4.97) M/mcL Hgb (11.5-15.4) g/dL Hct (35.3-44.9) % MCV (83.0-100.0) fL MCH (28.0-33.3) pg MCHC (31.6-35.5) g/dL RDW (11.5-14.5) % Plt Count (140-400) K/mcL MPV (9.4-12.4) fL Immature Gran % (0-4) % Seg Neutrophils % % Lymphocytes % % Monocytes % % Eosinophils % % Basophils % % Neutrophils # (1.6-8.9) K/mcL Lymphocytes # (0.6-4.6) K/mcL Monocytes # (0.0-1.3) K/mcL Eosinophils # (0.0-0.6) K/mcL Basophils # (0.0-0.2) K/mcL PT (9.4-12.1) Seconds INR APTT (26.0-36.0) Seconds Sodium (136-145) mEq/L Potassium (3.5-5.1) mEq/L Chloride (98-107) mEq/L Carbon Dioxide (23-29) mEq/L BUN (6-20) mg/dL Creatinine (0.60-1.20) mg/dL Est GFR ( Amer) (> 60) Est GFR (Non-Af Amer) (> 60) BUN/Creatinine Ratio (6-26) Glucose (70-105) mg/dL POC Glucose (58-89) Calculated Osmolality (280-300) Calcium (8.6-10.3) mg/dL Total Bilirubin (0.3-1.0) mg/dL Direct Bilirubin (0.0-0.2) mg/dL Indirect Bilirubin (0.0-1.2) mg/dL AST (13-39) Units/L ALT (7-52) Units/L Alkaline Phosphatase (34-104) Units/L Creatine Kinase 477 H (30-223) Units/L Troponin I (< 0.04) ng/mL Serum Total Protein (6.4-8.9) g/dL Albumin (3.5-5.7) g/dL Globulin (2.4-3.5) g/dL Albumin/Globulin Ratio (1.1-2.2) Urine Color (Yellow) Urine Clarity (Clear) Urine pH (5.0-8.0) pH Units Ur Specific [place] (1.010-1.025) Urine Protein (Neg-Trace) mg/dL Urine Glucose (UA) (Normal) mg/dL Urine Ketones (Negative) mg/dL Urine Blood (Negative) Urine Nitrite (Negative) Urine Bilirubin (Negative) Urine Urobilinogen (Normal) mg/dL Ur Leukocyte Esterase (Negative) Urine Microscopic RBC (0-3) per hpf Urine Microscopic WBC (0-3) per hpf Ur Squamous Epith Cells (None-Few) per lpf Urine Bacteria (None-Few) per hpf Hyaline Casts (None-Few) per lpf Ur Culture Indicated? (NO) Urine Test Negative (Negative) Urine Opiates Screen Negative (Iglmuk=550) ng/mL Ur Barbiturates Screen Negative (Tihbne=838) ng/mL Ur Phencyclidine Scrn Negative (Cutoff=25) ng/mL Ur Amphetamines Screen Negative (Neyevv=5570) ng/mL U Benzodiazepines Scrn Negative (Baiqet=113) ng/mL Urine Cocaine Screen Negative (Cutoff= 300) ng/mL U Marijuana (THC) Screen Positive H (Cutoff = 50) ng/mL Ethyl Alcohol (0-10) mg/dL - Radiology Data Radiology results reviewed: Yes I reviewed the patient's radiology results. Head CT 09/29/17 06:00 IMPRESSION: No acute intracranial abnormality. D/ / Jorge Macedo MD / Jorge Macedo MD Interpreting Provider: Jorge Macedo MD Chest X-Ray 09/29/17 07:52 IMPRESSION: Endotracheal tube placement. D/ / Peewee Moore MD / Peewee Moore MD Interpreting Provider: Peewee Moore MD - EKG Data EKG #1 EKG attestation: Yes I reviewed and interpreted this EKG. EKG results narrative: EKG is interpreted by myself without benefit from cardiology interpretation showing a sinus tachycardia at [address] or T-wave changes are appreciated. Critical Care Time Critical Care Time: Yes Total Critical Care Time: 60 Attestation: The high probability of a clinically significant, sudden or life threatening deterioration of the [resp/neuro] system(s) required my full and direct attention, intervention and personal management. The aggregate critical care time was [60] minutes. This time is in addition to time spent performing reported procedures but includes the following: [x] Data Review and interpretation [x] Patient assessment and monitoring of vital signs [x] Documentation [x] Medication orders and management
[2017-09-29] MEDS ORDERED: *HR* Etomidate 20 MG/10 ML AMPUL IVP ONE (08:27)
[2017-09-29] MEDS ORDERED: *HR* Succinylcholine 200 MG/10 ML VIAL IVP ONE (08:27)
[2017-09-29 08:30] LABS: Magnesium 1.6 mg/dL (1.6-2.6)
[2017-09-29 08:52] LABS: ABG Base Excess 2 mEq/L (-2 to 3); ABG HCO3 27 mEq/L (21-27); ABG Oxygen Saturation 100 % (95-98); ABG PCO2 46 mmHg (35-45); ABG PH 7.39 pH Units (7.32-7.45); ABG PO2 357 mmHg (85-104); ABG TCO2 29 mEq/L (20-26); Blood Gas Modality VC; Blood Gas PEEP 5 cm H2O; Blood Gas Respiration Rate 14; Blood Gas VT 450 cc
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
[2017-09-29] MEDS ORDERED: 0.9 % Sodium Chloride 500 ML ONE (09:48)
[2017-09-29] MEDS ORDERED: Lacri-Lube 3.5 GM TUBE BOTH EYES PRN (09:50)
[2017-09-29] MEDS ORDERED: cefTRIAXone 2,000 MG in Water for inj. (sterile) 20 ML IVP SCH (10:00)
[2017-09-29] MEDS ORDERED: Vancomycin 1,000 MG in D5% in Water 250 ML IVPB ONE (10:00)
[2017-09-29] MEDS ORDERED: Dexmedetomidine HCl 400 MCG/100 ML MLS IVC SCH (10:45)
[2017-09-29 11:14] LABS: Acetaminophen < 1.0 mcg/mL (10-30); Salicylate < 5.0 mg/dL (15.0-30.0)
--- NOTE | 2017-09-29 11:21 | Procedure Note ---
<ZoraMr S - Last Filed: 09/29/17 11:20> Date of procedure: 09/29/17 Pre-op diagnosis: Hypertension Post-op diagnosis: same Procedure: Arterial line is attempted under ultrasound guidance of the right and left radial arteries that was unsuccessful. Anesthesia: IV sedation Was there an scheduling assistant present: No Estimated blood loss (cc): 0 Specimen: None Pathology: none sent Condition: critical Disposition: ICU <Vineet Madison - Last Filed: 09/30/17 06:46> - Attending Attestation I examined this patient and my medical decision-making was reviewed with the Resident Physician. I agree with the documented findings, disposition and treatment plan as described except to the extent set forth below. We independently had [id number]-[id number] contact with the patient I was available for the duration of this procedure which was performed skillfully whether resident however it was a technically challenging procedure anatomically
[2017-09-29] MEDS: Ipratropium/Albuterol Neb 3 ML IH SCH ×4 (11:32→23:37)
[2017-09-29] MEDS ORDERED: 0.9 % Sodium Chloride 500 ML IVC ONE (12:13)
--- NOTE | 2017-09-29 12:29 | Procedure Note ---
Date of procedure: 09/29/17 Pre-op diagnosis: Acute Encephalopthy Post-op diagnosis: same Procedure: Lumbar puncture: Written consent was obtained from the patient's as the patient was intubated and sedated and unable to provide consent. Patient was placed in the left lateral decubitus position. Spinous processes were identified and a mild dextroscoliosis was noted. The L3/L4 and L4/L5 interspace were cleaned and draped in the usual sterile fashion. 5 mL of 1% lidocaine was infiltrated into the L4-L5 interspace. A spinal needle was advanced into the L4-L5 interspace, bone was encountered and the needle was repositioned and advanced without difficulty. The trocar was removed and clear spinal fluid was returned. Approximately 2 mL was obtained in each of the 4 vials and sent to the lab for testing. The needle was removed and no bleeding was noted. Band-Aid was applied to the area. The patient tolerated the procedure well. There were no immediate complications. The attending physician, Dr. Burdick, was present for the entire procedure. Anesthesia: GETA, local (1% licodaine - 5cc) Surgeon: Stanley Veliz Was there an graduate research assistant present: No Estimated blood loss (cc): 0 Specimen: CSF Pathology: other (CSF sent to lab) Condition: critical Disposition: ICU
[2017-09-29 13:01] LABS: Red Blood Cell,CSF < 0.002 M/mcL
[2017-09-29 13:09] LABS: Glucose,CSF 74 mg/dL (40-70); Total Protein,CSF 43 mg/dL (15-45)
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
[2017-09-29 13:18] LABS: Appearance,CSF Clear (Clear)
[2017-09-29] MEDS: Dexmedetomidine HCl 200 MCG/50 ML MLS IVC SCH ×3 (13:22→22:09)
[2017-09-29] MEDS: FentaNYL (PF) 1,000 MCG in 0.9 % Sodium Chloride 80 ML IVC SCH (13:26)
[2017-09-29] MEDS: Lacri-Lube 3.5 GM TUBE BOTH EYES SCH ×4 (13:27→23:01)
[2017-09-29] MEDS: WATER IVPB SCH ×2 (13:31→19:41)
[2017-09-29] MEDS: ACYCLOVIR IVPB SCH ×2 (13:31→19:41)
[2017-09-29] MEDS: D5 IVPB SCH ×2 (13:31→19:41)
--- NOTE | 2017-09-29 13:56 | Procedure Note ---
<Stanley Veliz - Last Filed: 09/29/17 13:45> Date of procedure: 09/29/17 Pre-op diagnosis: Altered mental status/labile blood pressures, hypertension Post-op diagnosis: same Procedure: Femoral arterial line: Consent was implied from earlier discussions with the patient's who had previously given consent for a radial arterial line and stated that that time "do everything needed." Attempts to contact the for specific femoral arterial line consent were unsuccessful and the procedure was considered emergent. The right groin was cleaned and draped in the usual sterile fashion. Skin was anesthetized with 3 mL of 1% lidocaine. A strong femoral pulse was palpated and a needle was advanced through the skin and into the radial artery. Bright red, pulsatile blood flow was returned. A guidewire was passed through the needle and into the artery without resistance. The needle was removed and a curtis in the skin was made. The catheter was then advanced over the guidewire and into the femoral artery. A pressure transducer system was connected to the catheter and an arterial waveform. The catheter was then sutured in place. Sterile dressing was applied. The patient tolerated the procedure well, there are no immediate competitions. Anesthesia: GETA, local (5cc- 1% lidocaine) Surgeon: Stanley Veliz Was there an topographical field assistant present: No Estimated blood loss (cc): 5 Specimen: none Pathology: none sent Condition: critical Disposition: ICU <Vineet Madison W - Last Filed: 09/29/17 16:44> - Attending Attestation I examined this patient and my medical decision-making was reviewed with the Resident Physician. I agree with the documented findings, disposition and treatment plan as described except to the extent set forth below. We independently had [id number] contact with the patient I was present for the entire procedure and supervised the resident who performed for procedure skillfully
[2017-09-29] MEDS: cefTRIAXone 2,000 MG in Water for inj. (sterile) 20 ML 20 ML IVP SCH (14:05)
[2017-09-29] MEDS ORDERED: D5% in Water 1,000 ML IVC PRN (15:18)
[2017-09-29] MEDS ORDERED: Dextrose Gel 15 GM/37.5 ML TUBE PO PRN ×2 (15:18)
[2017-09-29] MEDS ORDERED: *HR* Dextrose 50 % in Water (Syg) 50 ML SYRINGE IVP PRN (15:18)
[2017-09-29 16:22] LABS: ABG Base Excess 1 mEq/L (-2 to 3); ABG HCO3 26 mEq/L (21-27); ABG Oxygen Saturation 95 % (95-98); ABG PCO2 44 mmHg (35-45); ABG PH 7.38 pH Units (7.32-7.45); ABG PO2 77 mmHg (85-104); ABG TCO2 28 mEq/L (20-26); Blood Gas PEEP 5 cm H2O; Blood Gas Respiration Rate 14; Blood Gas VT 50 cc
--- NOTE | 2017-09-29 16:46 | Procedure Note ---
<Rm Blakely - Last Filed: 09/29/17 16:44> Date of procedure: 09/29/17 Pre-op diagnosis: Hypotension Post-op diagnosis: same Procedure: A right IJ CVC: The patient was positioned in a normal fashion. The patient had verbalized consent from the . The patient was cleaned and draped in the normal fashion. Under ultrasound visualization the right IJ was identified. The needle was inserted into the right IJ and guidewire passed. A guidewire was visualized with in the right IJ vein. The patient had a knick in her skin dilator passed over the guidewire. The patient's catheter was passed over the guidewire and guidewire was removed. All 3 lm were flushed and were able to withdraw blood. Catheter was sutured in place. Dressing placed. Chest x-ray confirmed placement. Anesthesia: IV sedation Was there an payroll human resources assistant present: Yes Line Decorator: Vineet Madison Estimated blood loss (cc): 2 Specimen: None Pathology: none sent Condition: critical Disposition: ICU <Vineet Madison - Last Filed: 09/29/17 17:07> - Attending Attestation I examined this patient and my medical decision-making was reviewed with the Resident Physician. I agree with the documented findings, disposition and treatment plan as described except to the extent set forth below. We independently had [id number] contact with the patient I was present for the entire procedure and supervised the resident the procedure was performed skillfully
[2017-09-29] MEDS: Insulin LISPRO 300 UNITS/3 ML VIAL SQ SCH ×2 (17:22→23:01)
[2017-09-29] MEDS: Famotidine 20 MG/2 ML VIAL IVP SCH (17:27)
[2017-09-29 18:40] LABS: Adenovirus Not Detected (Not Detect); Bordetella Pertussis Not Detected (Not Detect); Chlamydophila pneumoniae Not Detected (Not Detect); Coronavirus 229E Not Detected (Not Detect); Coronavirus HKU1 Not Detected (Not Detect); Coronavirus NL63 Not Detected (Not Detect); Coronavirus OC43 Not Detected (Not Detect); Human Metapneumovirus Not Detected (Not Detect); Human Rhinovirus/Enterovirus Not Detected (Not Detect); Influenza A Subtype 2009 H1 Not Detected (Not Detect); Influenza A Untypeable Not Detected (Not Detect); Influenza B Not Detected (Not Detect); Mycoplasma pneumoniae Not Detected (Not Detect); Parainfluenza Virus 1 Not Detected (Not Detect); Parainfluenza Virus 2 Not Detected (Not Detect); Parainfluenza Virus 3 Not Detected (Not Detect); Parainfluenza Virus 4 Not Detected (Not Detect); Respiratory Syncytial Virus Not Detected (Not Detect)
[2017-09-29] MEDS: Phenylephrine 10 MG in D5% in Water 250 ML IVC SCH ×2 (18:44→20:40)
[2017-09-29] MEDS ORDERED: Potassium Chloride Elixir 20 MEQ/15 ML UDC GTUBE PRN (19:06)
[2017-09-29] MEDS: niCARdipine 40 MG/200 ML MLS IVC SCH ×2 (19:28→23:02)
[2017-09-29] MEDS: Chlorhexidine Rinse 15 ML MOUTHWASH MM SCH (19:43)
[2017-09-29 20:12] LABS: Basophils # 0.1 K/mcL (0.0-0.2); Basophils % 0.4 %; Eosinophils % 0.2 %; Hematocrit 33.5 % (35.3-44.9); Immature Granulocytes % 0.4 % (0-4); Immature Platelets 3.1 % (1.1-6.1); Mean Corpuscular HGB Conc 33.1 g/dL (31.6-35.5); Mean Corpuscular Hemoglobin 29.2 pg (28.0-33.3); Mean Corpuscular Volume 88.2 fL (83.0-100.0); Mean Platelet Volume 9.6 fL (9.4-12.4); Monocytes # 1.4 K/mcL (0.0-1.3); Monocytes % 9.7 %; Neutrophils # 9.7 K/mcL (1.6-8.9); Platelet Count 215 K/mcL (140-400); Segmented Neutrophils % 68.3 %
[2017-09-29 20:19] LABS: Hemoglobin 11.1 g/dL (11.5-15.4)
[2017-09-29 20:24] LABS: Calcium 7.8 mg/dL (8.6-10.3); Carbon Dioxide 25 mEq/L (23-29); Chloride 109 mEq/L (98-107); Potassium 2.9 mEq/L (3.5-5.1); Sodium 138 mEq/L (136-145)
[2017-09-29 20:29] LABS: BUN/Creatinine Ratio 8 (6-26); Blood Urea Nitrogen 5 mg/dL (6-20); Glucose 180 mg/dL (70-105); Osmolality,Calculated 288 (280-300); eGFR For African Americans > 60 (> 60); eGFR For Non-African Americans > 60 (> 60)
[2017-09-29] MEDS: Potassium Chloride 40 MEQ/200 ML BAG IVPB PRN (20:48)
[2017-09-29] MEDS: Vancomycin 750 MG in D5% in Water 250 ML IVPB SCH (21:00)
[2017-09-29] MEDS: Phenylephrine 20 MG in D5% in Water 500 ML IVC SCH (23:00)
[2017-09-30] MEDS: cefTRIAXone 2,000 MG in Water for inj. (sterile) 20 ML 20 ML IVP SCH (01:00)
[2017-09-30] MEDS: Dexmedetomidine HCl 200 MCG/50 ML MLS IVC SCH ×2 (01:10→06:01)
[2017-09-30] MEDS: Phenylephrine 20 MG in D5% in Water 500 ML IVC SCH ×3 (01:11→06:00)
[2017-09-30] MEDS: D5 IVPB SCH (02:00)
[2017-09-30] MEDS: WATER IVPB SCH (02:00)
[2017-09-30] MEDS: ACYCLOVIR IVPB SCH (02:00)
[2017-09-30 02:39] LABS: Basophils # 0.1 K/mcL (0.0-0.2); Basophils % 0.4 %; Eosinophils # 0.1 K/mcL (0.0-0.6); Eosinophils % 0.6 %; Hematocrit 32.2 % (35.3-44.9); Hemoglobin 10.7 g/dL (11.5-15.4); Immature Granulocytes % 0.3 % (0-4); Lymphocytes # 2.5 K/mcL (0.6-4.6); Lymphocytes % 20.5 %; Mean Corpuscular HGB Conc 33.2 g/dL (31.6-35.5); Mean Corpuscular Hemoglobin 29.3 pg (28.0-33.3); Mean Corpuscular Volume 88.2 fL (83.0-100.0); Mean Platelet Volume 9.4 fL (9.4-12.4); Monocytes # 1.2 K/mcL (0.0-1.3); Monocytes % 10.2 %; Neutrophils # 8.2 K/mcL (1.6-8.9); Platelet Count 183 K/mcL (140-400); Red Blood Count 3.65 M/mcL (3.82-4.97); Red Cell Distribution Width 12.9 % (11.5-14.5)
[2017-09-30 02:44] LABS: VBG Ionized Calcium 1.11 mmol/L (1.15-1.35); VBG PH 7.42 pH Units (7.32-7.42)
[2017-09-30 03:00] LABS: BUN/Creatinine Ratio 6 (6-26); Blood Urea Nitrogen 4 mg/dL (6-20); Calcium 7.7 mg/dL (8.6-10.3); Carbon Dioxide 25 mEq/L (23-29); Chloride 106 mEq/L (98-107); Glucose 197 mg/dL (70-105); Magnesium 1.7 mg/dL (1.6-2.6); Osmolality,Calculated 280 (280-300); Potassium 3.1 mEq/L (3.5-5.1); Sodium 134 mEq/L (136-145); eGFR For African Americans > 60 (> 60); eGFR For Non-African Americans > 60 (> 60)
[2017-09-30] MEDS: Lacri-Lube 3.5 GM TUBE BOTH EYES SCH ×2 (03:03→09:14)
[2017-09-30] MEDS: Potassium Chloride 40 MEQ/200 ML BAG IVPB PRN (03:12)
[2017-09-30] MEDS: Ipratropium/Albuterol Neb 3 ML IH SCH ×6 (03:16→23:34)
[2017-09-30] MEDS: FentaNYL (PF) 1,000 MCG in 0.9 % Sodium Chloride 80 ML IVC SCH (04:16)
[2017-09-30 04:54] LABS: ABG Base Excess 2 mEq/L (-2 to 3); ABG HCO3 27 mEq/L (21-27); ABG Oxygen Saturation 97 % (95-98); ABG PCO2 41 mmHg (35-45); ABG PH 7.42 pH Units (7.32-7.45); ABG PO2 91 mmHg (85-104); ABG TCO2 28 mEq/L (20-26); Blood Gas Modality VC; Blood Gas PEEP 5 cm H2O; Blood Gas Respiration Rate 14; Blood Gas VT 450 cc
[2017-09-30] MEDS: Famotidine 20 MG/2 ML VIAL IVP SCH ×2 (05:01→17:22)
[2017-09-30] MEDS: Insulin LISPRO 300 UNITS/3 ML VIAL SQ SCH ×3 (05:01→17:21)
--- NOTE | 2017-09-30 06:37 | Electrocardiograph Report ---
[address] [place] [address] Test Date: 2017-09-29 Pat Name: Dottie Coto Department: 102 Room: [facility] Gender: F Program Services Planner: Maxwell : 1970 Requested By: Vineet Madison Order Number: [id number] Reading MD: Baljinder Allen MD Measurements Intervals [place] Rate: 171 P: [place]: 0 QRS: 62 QRSD: 93 T: 70 QT: 262 QTc: 355 Interpretive Statements SUPRAVENTRICULAR TACHYCARDIA, LONG R-P NONSPECIFIC ST & T-WAVE ABNORMALITY BASELINE ARTIFACT, REPEAT EKG Electronically Signed On 09-30-2017 6:36:21 EST by Baljinder Allen MD
--- NOTE | 2017-09-30 06:42 | Electrocardiograph Report ---
[facility] Test Date: 2017-09-29 Pat Name: Dottie Coto Department: 104 Room: [facility] Gender: F Windows Desktop Support: ASHIA : 1970 Requested By: João Machado Order Number: [id number] Reading MD: Juan Luis Gonzales MD Measurements Intervals [place] Rate: 112 P: 65 [place]: 132 QRS: 68 QRSD: 87 T: 62 QT: 330 QTc: 396 Interpretive Statements SINUS TACHYCARDIA ABNORMAL RHYTHM ECG Electronically Signed On 09-30-2017 6:41:03 EST by Juan Luis Gonzales MD
--- NOTE | 2017-09-30 07:58 | Pulmonology Progress Note ---
<Rm Blakely - Last Filed: 09/30/17 11:12> Date of Encounter: 09/30/17 Time of Encounter: 07:58 Assessment and Plan (1) Encephalopathy Current Visit: Yes Status: Acute Unknown source of patient's encephalopathy. There may be a component of the patient's high blood pressure as her mental status has improved over the course of the past 24 hours since the patient's blood pressure has weaned down. The patient is awake, alert and answering questions and following commands. Neurology had been consulted and performed a lumbar puncture which revealed no acute findings. We will discontinue the patient on acyclovir. Patient due to have an EEG but patient is not cooperating on the ventilator now. We will perform once the patient has been extubated. The patient will be extubated at this time. The patient is currently on Keppra for antiepileptic. Once she is extubated and is tolerating by mouth's we will likely changed to Depakote with some additional mood stabilizer activity in addition to the anti-epileptic per recommendation from neurology. The patient is due to have an MRI which we will perform once the patient is extubated. The patient does have gram-positive cocci in sputum with culture pending. In addition the patient does have a left basilar atelectasis. We will continue the patient on vancomycin and likely discontinue the patient's Rocephin today. We will continue to monitor. (2) Hypertensive emergency Current Visit: Yes Status: Acute Patient's blood pressures continued to trend downward overnight. She is tolerated it well. She has required phenylephrine intermittently to prevent any hypotension. This was likely associated with the patient's sedation. (3) COPD (chronic obstructive pulmonary disease) Current Visit: No Status: Chronic Chronic. We will continue to monitor the patient's breathing. We will schedule do a every 4 hours Qualifiers: COPD type: unspecified COPD Qualified Code(s): J44.9 - Chronic obstructive pulmonary disease, unspecified Subjective Principal diagnosis: Hypertension, alteration in mentation Interval history: Patient did well overnight on the ventilator. Due to the patient's hypotension yesterday central line was placed in the right IJ. The patient was on a phenylephrine overnight and has done well with her blood pressures. Over the course of the past 24 hours her blood pressure has slowly been brought down. The patient currently is experiencing maps in the upper 60s and low 70s which is the patient's goal at this time. The patient was switched over to CPAP and is doing well at this time. She is taking good tidal volumes and able to suction roughly 1400. The patient has been doing well. She is following commands and answering questions. She will likely be extubated today. Objective PUL Vital signs: Last Vital Signs Temp 99.9 F H 09/30/17 04:08 Pulse 74 09/30/17 06:00 Resp 16 09/30/17 07:17 BP 104/60 09/30/17 07:17 Pulse Ox 100 09/30/17 07:17 General appearance: agitated (as sedation is currently off) Eyes: nonicteric ENT: oropharynx moist Auscultation: right: diminished breath sounds (Lower lobe) Cardiovascular: regular rate and rhythm Gastrointestinal: soft, non-distended Integumentary: other (Mild ecchymotic lesions on b/l upper and LE extremities. ) Musculoskeletal: no deformities other (Patient awake and following commands at this time. She is able to answer some questions despite being on the ventilator.) anxious Ventilator Settings Ventilator Settings: Ventilator Settings, Last 8 Hours Ventilator Mode VC+ Ventilator Mode VC+ Ventilator Mode VC+ Ventilator Mode VC+ Ventilator Mode VC+ Ventilator Mode VC+ Ventilator Mode VC+ Ventilator Mode VC+ Ventilator Mode VC+ Ventilator Mode VC+ Ventilator Mode VC+ Ventilator Mode VC+ Ventilator Tidal Volume 450 Setting Ventilator Tidal Volume 450 Setting Ventilator Tidal Volume 450 Setting Ventilator Tidal Volume 450 Setting Ventilator Tidal Volume 450 Setting Ventilator Tidal Volume 450 Setting Ventilator Tidal Volume 450 Setting Ventilator Tidal Volume 450 Setting Ventilator Tidal Volume 450 Setting Ventilator Tidal Volume 450 Setting Ventilator Tidal Volume 450 Setting Ventilator Tidal Volume 450 Setting Ventilator Respiratory Rate 14 Setting Ventilator Respiratory Rate 14 Setting Ventilator Respiratory Rate 14 Setting Ventilator Respiratory Rate 14 Setting Ventilator Respiratory Rate 14 Setting Ventilator Respiratory Rate 14 Setting Ventilator Respiratory Rate 14 Setting Ventilator Respiratory Rate 14 Setting Ventilator Respiratory Rate 14 Setting Ventilator Respiratory Rate 14 Setting Ventilator Respiratory Rate 14 Setting Ventilator Respiratory Rate 14 Setting Actual Respiratory Rate 16 Actual Respiratory Rate 14 Actual Respiratory Rate 14 Actual Respiratory Rate 14 Actual Respiratory Rate 14 Actual Respiratory Rate 14 Actual Respiratory Rate 14 Actual Respiratory Rate 14 Actual Respiratory Rate 14 Actual Respiratory Rate 14 Actual Respiratory Rate 17 Positive End Expiratory 5 Pressure Positive End Expiratory 5 Pressure Positive End Expiratory 5 Pressure Positive End Expiratory 5 Pressure Positive End Expiratory 5 Pressure Positive End Expiratory 5 Pressure Positive End Expiratory 5 Pressure Positive End Expiratory 5 Pressure Positive End Expiratory 5 Pressure Positive End Expiratory 5 Pressure Positive End Expiratory 5 Pressure Positive End Expiratory 5 Pressure Peak Inspiratory Airway 25 Pressure Peak Inspiratory Airway 19 Pressure Peak Inspiratory Airway 19 Pressure Peak Inspiratory Airway 20 Pressure Peak Inspiratory Airway 17 Pressure Peak Inspiratory Airway 18 Pressure Peak Inspiratory Airway 16 Pressure Peak Inspiratory Airway 20 Pressure Peak Inspiratory Airway 16 Pressure Peak Inspiratory Airway 16 Pressure Results - Laboratory Findings CBC and BMP: 09/30/17 02:30 09/30/17 02:30 ABG ABG pH 7.42 pH Units (7.32-7.45) 09/30/17 04:50 ABG pCO2 41 mmHg (35-45) 09/30/17 04:50 ABG pO2 91 mmHg (85-104) 09/30/17 04:50 ABG O2 Saturation 97 % (95-98) 09/30/17 04:50 PT/INR, D-dimer PT 12.0 Seconds (9.4-12.1) 09/29/17 06:00 Abnormal lab findings: Abnormal lab results WBC 12.1 K/mcL (4.3-11.1) H 09/30/17 02:30 RBC 3.65 M/mcL (3.82-4.97) L 09/30/17 02:30 Hgb 10.7 g/dL (11.5-15.4) L 09/30/17 02:30 Hct 32.2 % (35.3-44.9) L 09/30/17 02:30 ABG Total CO2 28 mEq/L (20-26) H 09/30/17 04:50 Sodium 134 mEq/L (136-145) L 09/30/17 02:30 Potassium 3.1 mEq/L (3.5-5.1) L 09/30/17 02:30 BUN 4 mg/dL (6-20) L 09/30/17 02:30 Glucose 197 mg/dL (70-105) H 09/30/17 02:30 POC Glucose 129 (58-89) H 09/29/17 22:40 Calcium 7.7 mg/dL (8.6-10.3) L 09/30/17 02:30 Venous Ioniz Calcium 1.11 mmol/L (1.15-1.35) L 09/30/17 02:41 Total Bilirubin 1.3 mg/dL (0.3-1.0) H 09/29/17 06:00 Creatine Kinase 477 Units/L (30-223) H 09/29/17 06:58 Troponin I 0.07 ng/mL (< 0.04) H* 09/30/17 02:30 Urine Blood Trace (Negative) H 09/29/17 06:06 Ur Squamous Epith Cells Many per lpf (None-Few) H 09/29/17 06:06 CSF Glucose 74 mg/dL (40-70) H 09/29/17 12:15 Salicylates < 5.0 mg/dL (15.0-30.0) L 09/29/17 10:52 Acetaminophen < 1.0 mcg/mL (10-30) L 09/29/17 10:52 U Marijuana (THC) Screen Positive ng/mL (Cutoff = 50) H 09/29/17 06:06 - Microbiology Findings Microbiology Findings: Microbiology, Last 48 Hours 09/29/17 20:11 Sputum Culture - Preliminary Sputum 09/29/17 12:19 Gram Stain - Final Cerebral Spinal Fluid - Clinical Findings Intake & Output: Intake & Output 09/29/17 09/29/17 09/30/17 15:59 23:59 07:59 Intake Total 1370 / 2370 2806 / 2806 2316 / 2316 Output Total 2100 / 2100 2100 / 2100 800 / 800 Balance -730 / 270 706 / 706 1516 / 1516 Weight 55.5 kg 60 kg - VTE Documentation of Mechanical Device: Intermittent pneumatic compression device Consult Discharge Plan - Plan Referrals: Haja Loyd, PAC [Primary Care Provider] - - Attending Attestation I examined this patient and my medical decision-making was reviewed with the Resident Physician. I agree with the documented findings, disposition and treatment plan as described except to the extent set forth below. <Vineet Madison W - Last Filed: 09/30/17 11:48> Date of Encounter: 09/30/17 Objective PUL Vital signs: Last Vital Signs Temp 98.9 F 09/30/17 08:00 Pulse 125 09/30/17 11:00 Resp 16 09/30/17 11:00 BP 149/86 09/30/17 11:00 Pulse Ox 98 09/30/17 11:00 Ventilator Settings Ventilator Settings: Ventilator Settings, Last 8 Hours Ventilator Mode VC+ Ventilator Mode VC+ Ventilator Mode VC+ Ventilator Mode VC+ Ventilator Mode VC+ Ventilator Mode VC+ Ventilator Mode VC+ Ventilator Mode VC+ Ventilator Tidal Volume 450 Setting Ventilator Tidal Volume 450 Setting Ventilator Tidal Volume 450 Setting Ventilator Tidal Volume 450 Setting Ventilator Tidal Volume 450 Setting Ventilator Tidal Volume 450 Setting Ventilator Tidal Volume 450 Setting Ventilator Tidal Volume 450 Setting Ventilator Respiratory Rate 14 Setting Ventilator Respiratory Rate 14 Setting Ventilator Respiratory Rate 14 Setting Ventilator Respiratory Rate 14 Setting Ventilator Respiratory Rate 14 Setting Ventilator Respiratory Rate 14 Setting Ventilator Respiratory Rate 14 Setting Ventilator Respiratory Rate 14 Setting Actual Respiratory Rate 16 Actual Respiratory Rate 16 Actual Respiratory Rate 16 Actual Respiratory Rate 14 Actual Respiratory Rate 14 Actual Respiratory Rate 14 Actual Respiratory Rate 14 Positive End Expiratory 5 Pressure Positive End Expiratory 5 Pressure Positive End Expiratory 5 Pressure Positive End Expiratory 5 Pressure Positive End Expiratory 5 Pressure Positive End Expiratory 5 Pressure Positive End Expiratory 5 Pressure Positive End Expiratory 5 Pressure Peak Inspiratory Airway 25 Pressure Peak Inspiratory Airway 25 Pressure Peak Inspiratory Airway 25 Pressure Peak Inspiratory Airway 19 Pressure Peak Inspiratory Airway 19 Pressure Peak Inspiratory Airway 20 Pressure Results - Laboratory Findings CBC and BMP: 09/30/17 02:30 09/30/17 02:30 ABG ABG pH 7.42 pH Units (7.32-7.45) 09/30/17 04:50 ABG pCO2 41 mmHg (35-45) 09/30/17 04:50 ABG pO2 91 mmHg (85-104) 09/30/17 04:50 ABG O2 Saturation 97 % (95-98) 09/30/17 04:50 PT/INR, D-dimer PT 12.0 Seconds (9.4-12.1) 09/29/17 06:00 Abnormal lab findings: Abnormal lab results WBC 12.1 K/mcL (4.3-11.1) H 09/30/17 02:30 RBC 3.65 M/mcL (3.82-4.97) L 09/30/17 02:30 Hgb 10.7 g/dL (11.5-15.4) L 09/30/17 02:30 Hct 32.2 % (35.3-44.9) L 09/30/17 02:30 ABG Total CO2 28 mEq/L (20-26) H 09/30/17 04:50 Sodium 134 mEq/L (136-145) L 09/30/17 02:30 Potassium 3.1 mEq/L (3.5-5.1) L 09/30/17 02:30 BUN 4 mg/dL (6-20) L 09/30/17 02:30 Glucose 197 mg/dL (70-105) H 09/30/17 02:30 POC Glucose 129 (58-89) H 09/29/17 22:40 Calcium 7.7 mg/dL (8.6-10.3) L 09/30/17 02:30 Venous Ioniz Calcium 1.11 mmol/L (1.15-1.35) L 09/30/17 02:41 Total Bilirubin 1.3 mg/dL (0.3-1.0) H 09/29/17 06:00 Creatine Kinase 477 Units/L (30-223) H 09/29/17 06:58 Troponin I 0.07 ng/mL (< 0.04) H* 09/30/17 02:30 Urine Blood Trace (Negative) H 09/29/17 06:06 Ur Squamous Epith Cells Many per lpf (None-Few) H 09/29/17 06:06 CSF Glucose 74 mg/dL (40-70) H 09/29/17 12:15 Salicylates < 5.0 mg/dL (15.0-30.0) L 09/29/17 10:52 Acetaminophen < 1.0 mcg/mL (10-30) L 09/29/17 10:52 U Marijuana (THC) Screen Positive ng/mL (Cutoff = 50) H 09/29/17 06:06 - Microbiology Findings Microbiology Findings: Microbiology, Last 48 Hours 09/29/17 20:11 Sputum Culture - Preliminary Sputum 09/29/17 12:19 Gram Stain - Final Cerebral Spinal Fluid - Clinical Findings Intake & Output: Intake & Output 09/29/17 09/30/17 09/30/17 23:59 07:59 15:59 Intake Total 2806 / 2806 2316 / 2316 Output Total 2100 / 2100 800 / 800 1200 / 1200 Balance 706 / 706 1516 / 1516 -1200 / -1200 Weight 60 kg - Attending Attestation I examined this patient and my medical decision-making was reviewed with the Resident Physician. I agree with the documented findings, disposition and treatment plan as described except to the extent set forth below. We independently had [id number] contact with the patient Patient seen and examined at bedside Labs, radiology, chart personally reviewed. Management was reviewed during multidisciplinary critical care rounds. DIRECTOR OF SCOUT WORK: More awake and alert today able to follow commands. CSF not consistent with meningitis stopping antimicrobials for this purpose. Neurology following MRI when stable EEG pending Pulm: Intubated for airway management liberated from the ventilator today Cards: Hypertensive emergency possibly secondary to toxic ingestion although this has not been confirmed on urinary tox screen. With sedation she had episodes of hypotension overnight for which vasopressor restarted this is then able to be weaned once sedation was stopped for the vent. FEN-GI: Advance diet as tolerated after bedside swallow eval Renal: Urine output monitored she has had excessive urine output over the last 24 hours which we will match with infusion of crystalloid today ID: Sputum with gram-positive cocci continue vancomycin with planned to stop Heme/Onc: DVT prophylaxis given Endo: Glucose Monitored Integ/MSK: Skin Care per routine ICU Nursing Protocol to prevent ulcers. 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
--- NOTE | 2017-09-30 09:12 | Neurology Progress Note ---
<Stanley Veliz - Last Filed: 09/30/17 09:09> Date of Encounter: 09/30/17 Time of Encounter: 09:09 Assessment and Plan (1) Encephalopathy Status: Acute Patient appears improved today. She remains intubated and sedated however plans for extubation today. She moves all 4 extremities spontaneously and is able to follow simple commands. No seizure activity noted overnight. Lumbar puncture reveals no cell count, normal glucose and protein, negative Gram stain making infectious process highly unlikely. HSV 1 and 2 PCR pending and it would be reasonable to continue acyclovir until these results return. Hopefully we will be able to obtain MRI and EEG today as the patient is being weaned off the ventilator and sedation. Continue Keppra 500 mg IV twice a day for now, once able to take by mouth we will consider transitioning to Depakote as it provides antiepileptic as well as mood stabilizing properties. (2) Bipolar 1 disorder Status: Chronic (3) History of pseudoseizure Status: Chronic Subjective Principal diagnosis: Hypertension, alteration in mentation Interval history: Patient seen and examined at bedside. She remains intubated and sedated however sedation has been lightened. She is able to follow basic commands. She moves all 4 extremities spontaneously. She appears in no acute distress. Objective - Constitutional Vitals: Temp Pulse Resp BP Pulse Ox 98.9 F 74 16 104/60 100 09/30/17 08:00 09/30/17 06:00 09/30/17 07:17 09/30/17 07:17 09/30/17 07:17 - Neurological Exam Motor Examination: Present: other (Patient moves all 4 extremities spontaneously however further testing is unable to be completed due to the patient's mental status and intubation) Sensation intact: Present: other (Unable to examine) Posture: Present: other (No posturing noted) Reflexes: Biceps: 2+, Triceps: 2+, Brachioradialis: 2+, Patella: 2+, Achilles: 2 + Mental Status Examination: Present: awake, follows simple commands, not reliable historian (Unable to assess due to the patient being intubated and sedated) Cranial nerve examination: Present: PERRL, EOMI - VTE Documentation of Mechanical Device: Intermittent pneumatic compression device Results - Laboratory Findings CBC and BMP: 09/30/17 02:30 09/30/17 02:30 Abnormal lab findings: Abnormal lab results WBC 12.1 K/mcL (4.3-11.1) H 09/30/17 02:30 RBC 3.65 M/mcL (3.82-4.97) L 09/30/17 02:30 Hgb 10.7 g/dL (11.5-15.4) L 09/30/17 02:30 Hct 32.2 % (35.3-44.9) L 09/30/17 02:30 ABG Total CO2 28 mEq/L (20-26) H 09/30/17 04:50 Sodium 134 mEq/L (136-145) L 09/30/17 02:30 Potassium 3.1 mEq/L (3.5-5.1) L 09/30/17 02:30 BUN 4 mg/dL (6-20) L 09/30/17 02:30 Glucose 197 mg/dL (70-105) H 09/30/17 02:30 POC Glucose 129 (58-89) H 09/29/17 22:40 Calcium 7.7 mg/dL (8.6-10.3) L 09/30/17 02:30 Venous Ioniz Calcium 1.11 mmol/L (1.15-1.35) L 09/30/17 02:41 Total Bilirubin 1.3 mg/dL (0.3-1.0) H 09/29/17 06:00 Creatine Kinase 477 Units/L (30-223) H 09/29/17 06:58 Troponin I 0.07 ng/mL (< 0.04) H* 09/30/17 02:30 Urine Blood Trace (Negative) H 09/29/17 06:06 Ur Squamous Epith Cells Many per lpf (None-Few) H 09/29/17 06:06 CSF Glucose 74 mg/dL (40-70) H 09/29/17 12:15 Salicylates < 5.0 mg/dL (15.0-30.0) L 09/29/17 10:52 Acetaminophen < 1.0 mcg/mL (10-30) L 09/29/17 10:52 U Marijuana (THC) Screen Positive ng/mL (Cutoff = 50) H 09/29/17 06:06 Consult Discharge Plan - Plan Referrals: Haja Loyd, PAC [Primary Care Provider] - Prescriptions: Sulfamethoxazole/Trimeth DS [Bactrim DS] 1 each PO BID 10 Days #20 tablet <ShanteRenate I - Last Filed: 10/03/17 10:35> Date of Encounter: 09/30/17 Assessment and Plan (1) Encephalopathy Status: Acute Pt was seen and examined this patient and my medical decision-making was reviewed with the Resident Physician, I agree with the documented findings, disposition and treatment plan as described except to the extent set forth below. Pt is known to me from previous office visit, she has not history of multiple psychosomatic symptoms as that is severe behavioral issues with really bad anxiety depression is not under control unfortunately she has not been following up with psychiatrist and continued to have these multiple psychosomatic symptoms. She did have history of lacunar infarct earlier but that did not cause any significant focal motor weakness she also has a history of seizures but most of them are nonepileptic pseudoseizures. Consider doing so for all workup is negative especially infectious workup if HSV PCR is negative acyclovir could be discontinued. We will review the EEG. She is scheduled for an MRI of the brain once she is stable and can follow the results. Strongly recommend that patient should be evaluated by psychiatry while she is inpatient otherwise she would not follow as an outpatient she would definitely need psych health for her mood behavior disorder as well as for severe depression and anxiety Discussed with the patient who is at the bedside as well as to the patient who is now able to have conversation without any focal neurological deficit Renate Frey MD Objective - Constitutional Vitals: Temp Pulse Resp BP Pulse Ox 97.8 F 92 18 145/87 97 10/01/17 08:34 10/01/17 08:00 10/01/17 08:00 10/01/17 08:00 10/01/17 08:00 Results - Laboratory Findings CBC and BMP: 10/01/17 03:41 10/01/17 03:41 Abnormal lab findings: Abnormal lab results RBC 3.42 M/mcL (3.82-4.97) L 10/01/17 03:41 Hgb 10.0 g/dL (11.5-15.4) L 10/01/17 03:41 Hct 29.8 % (35.3-44.9) L 10/01/17 03:41 ABG Total CO2 28 mEq/L (20-26) H 09/30/17 04:50 Chloride 109 mEq/L (98-107) H 10/01/17 03:41 POC Glucose 119 (58-89) H 10/01/17 07:36 Serum Osmolality 278 mOsm/kg (280-300) L 09/30/17 15:50 Calcium 8.4 mg/dL (8.6-10.3) L 10/01/17 03:41 Venous Ioniz Calcium 1.11 mmol/L (1.15-1.35) L 09/30/17 02:41 Total Bilirubin 1.3 mg/dL (0.3-1.0) H 09/29/17 06:00 Creatine Kinase 477 Units/L (30-223) H 09/29/17 06:58 Troponin I 0.07 ng/mL (< 0.04) H* 09/30/17 02:30 Urine Blood Trace (Negative) H 09/29/17 06:06 Ur Squamous Epith Cells Many per lpf (None-Few) H 09/29/17 06:06 Urine Osmolality 105 mOsm/kg (300-1090) L 09/30/17 13:30 CSF Glucose 74 mg/dL (40-70) H 09/29/17 12:15 Vancomycin Trough 7.7 mcg/mL (10-20) L 09/30/17 21:09 Salicylates < 5.0 mg/dL (15.0-30.0) L 09/29/17 10:52 Acetaminophen < 1.0 mcg/mL (10-30) L 09/29/17 10:52 U Marijuana (THC) Screen Positive ng/mL (Cutoff = 50) H 09/29/17 06:06
[2017-09-30] MEDS: Chlorhexidine Rinse 15 ML MOUTHWASH MM SCH (09:14)
[2017-09-30] MEDS: Vancomycin 750 MG in D5% in Water 250 ML IVPB SCH ×2 (09:14→23:05)
--- NOTE | 2017-09-30 10:52 | EEG/EMG/Oth Biometrics Report ---
EEG Procedure Report Date of procedure: 09/30/17 EEG Procedure: Routine EEG Procedure Note: Routine 18-channel digital EEG was obtained to rule out any seizure activity or focal abnormalities. FINDINGS: Background rhythm during awake stage shows well-organized, well- developed, average voltage 8 to 9 hertz alpha activity in the posterior regions. It blocks with eye opening and it is bilaterally synchronous and symmetrical. No [id number] discharges or any lateralizing abnormalities are seen. Photic stimulation did not produce any abnormalities. Hyperventilation was not performed. No abnormalities were found during the procedure. Intermittent EMG artifacts were seen. Stage II sleep was not achieved. IMPRESSION: with in the broad range of Normal awake/drowsy study. low amplitude No epileptiform discharges or any other paroxysmal activities or focal abnormalities seen. Clinical correlation is recommended.
[2017-09-30 12:33] LABS: Magnesium 1.9 mg/dL (1.6-2.6)
[2017-09-30] MEDS: *HR* LORazepam 1 MG TABLET PO SCH ×2 (15:11→21:08)
[2017-09-30] MEDS ORDERED: Insulin LISPRO 300 UNITS/3 ML VIAL SQ SCH (21:00)
[2017-09-30] MEDS ORDERED: traZODone 50 MG TABLET PO SCH (21:00)
[2017-09-30] MEDS: *HR* HYDROcodone/Acet 5/325 mg TABLET PO PRN (21:08)
[2017-09-30 21:46] LABS: Calcium 8.2 mg/dL (8.6-10.3); Carbon Dioxide 27 mEq/L (23-29); Chloride 110 mEq/L (98-107); Potassium 3.6 mEq/L (3.5-5.1); Sodium 141 mEq/L (136-145)
[2017-09-30 21:52] LABS: BUN/Creatinine Ratio 9 (6-26); Blood Urea Nitrogen 6 mg/dL (6-20); Glucose 99 mg/dL (70-105); Osmolality,Calculated 290 (280-300); eGFR For African Americans > 60 (> 60); eGFR For Non-African Americans > 60 (> 60)
[2017-10-01] MEDS: *HR* HYDROcodone/Acet 5/325 mg TABLET PO PRN (03:00)
[2017-10-01] MEDS: Ipratropium/Albuterol Neb 3 ML IH SCH ×2 (03:38→07:53)
[2017-10-01 04:01] LABS: Basophils % 0.5 %; Eosinophils # 0.2 K/mcL (0.0-0.6); Eosinophils % 1.9 %; Hematocrit 29.8 % (35.3-44.9); Immature Granulocytes % 0.2 % (0-4); Lymphocytes # 2.2 K/mcL (0.6-4.6); Lymphocytes % 27.4 %; Mean Corpuscular HGB Conc 33.6 g/dL (31.6-35.5); Mean Corpuscular Hemoglobin 29.2 pg (28.0-33.3); Mean Corpuscular Volume 87.1 fL (83.0-100.0); Mean Platelet Volume 9.9 fL (9.4-12.4); Monocytes # 0.9 K/mcL (0.0-1.3); Monocytes % 10.9 %; Neutrophils # 4.8 K/mcL (1.6-8.9); Platelet Count 143 K/mcL (140-400); Red Blood Count 3.42 M/mcL (3.82-4.97); Segmented Neutrophils % 59.1 %
[2017-10-01 04:16] LABS: BUN/Creatinine Ratio 12 (6-26); Blood Urea Nitrogen 8 mg/dL (6-20); Calcium 8.4 mg/dL (8.6-10.3); Carbon Dioxide 28 mEq/L (23-29); Chloride 109 mEq/L (98-107); Glucose 97 mg/dL (70-105); Osmolality,Calculated 290 (280-300); Potassium 3.7 mEq/L (3.5-5.1); Sodium 141 mEq/L (136-145); eGFR For African Americans > 60 (> 60); eGFR For Non-African Americans > 60 (> 60)
[2017-10-01] MEDS: Famotidine 20 MG/2 ML VIAL IVP SCH (06:12)
[2017-10-01] MEDS: Vancomycin 750 MG in D5% in Water 250 ML IVPB SCH (06:13)
[2017-10-01] MEDS: Potassium Chloride 40 MEQ/200 ML BAG IVPB PRN (08:02)
--- NOTE | 2017-10-01 08:05 | Pulmonology Progress Note ---
<Rm Blakely - Last Filed: 10/01/17 08:24> Date of Encounter: 10/01/17 Time of Encounter: 08:03 Assessment and Plan (1) Encephalopathy Status: Acute It appears as though the patient's encephalopathy has normalized. The patient is alert, oriented, and answering questions appropriately. The patient is adamant that she be discharged home today. She denies any other complaints. The patient does appear to very anxious in the room but this appears to be related to some sort of tasks that she has to complete at home. The patient is noted to have gram-positive cocci consistent with MRSA in her sputum. She is currently on vancomycin and doing well with this. We will continue the patient on vancomycin at this time. After numerous conversations with the patient over the course of the morning, she is adamant that she will leave. She has a central line and a Black that we will pull. The patient was made aware again that she may , makes. Seizures , may get worsening infection or any other new complaints if she leaves prior to and AGAINST MEDICAL ADVICE. The patient was given instructions to return to the emergency Department the hospital if her condition worsens. She agrees and understands the risks. She was able to verbalize the risks back to me that she may experience worsening condition. He was also explained to her that in no way do not want her to return if she experiences any worsening symptoms. She again verbalizes understanding with RN in the room in agreement. We will prescribe the patient with a prescription of Bactrim for her sputum culture that revealed likely MRSA. The patient was instructed to take his medication until completion. (2) Hypertensive emergency Status: Acute Patient's blood pressures have remained stable overnight. Her systolic is been in the 130s. She has had no episodes of hypertension. The patient does take oral antihypertensive at home. We have not supply these to her here in the ICU and her pressures remained stable. We will have the patient follow up with her primary care physician outpatient with regards to her blood pressures. (3) COPD (chronic obstructive pulmonary disease) Status: Chronic Chronic. We will continue to monitor the patient's breathing. We will schedule do a every 4 hours Qualifiers: COPD type: unspecified COPD Qualified Code(s): J44.9 - Chronic obstructive pulmonary disease, unspecified Subjective Principal diagnosis: Hypertension, alteration in mentation Interval history: Patient has been doing well overnight. If she is getting more restless over the course the past 24 hours which is apparently baseline per the family. The patient's blood pressure has remained stable in the 130s systolic. In addition the patient's white blood cell count is continued to normalize. The patient does have gram-positive cocci consistent with MRSA from sputum culture noted. She was placed in isolation. In addition the patient was continued on vancomycin. The patient is sitting in the room and very anxious stating that she has to go home and fears that she will be homeless today if she does not take care of things at home. It was explained to her that the patient has an infection and could result in worsening condition. Patient adamantly states that she needs to go home and understands that she may . It was explained to her again that she is been getting IV vancomycin and this is the best way to treat her infection, but she continues to insist that she just wants to take some pills and to go home at this time. The patient is demonstrating no signs of confusion and has been lucid throughout the night. The patient appears to be making a sound decision making at this time. Otherwise the patient's urinary output has continued to normalize with an output overnight of 750 mL. Her electrolytes have stabilized as well. Objective PUL Vital signs: Last Vital Signs Temp 98.3 F 10/01/17 03:10 Pulse 90 10/01/17 07:00 Resp 20 10/01/17 07:00 BP 130/88 10/01/17 07:00 Pulse Ox 94 10/01/17 07:00 General appearance: agitated (and anxious) Eyes: nonicteric ENT: oropharynx moist Effort: normal Auscultation: bilateral: diminished breath sounds (Coarse breath sounds, no rales or rhonchi noted) Cardiovascular: regular rate and rhythm Gastrointestinal: soft, non-tender, non-distended Integumentary: normal Extremities: no cyanosis, no edema, no clubbing Musculoskeletal: no deformities normal mental status, non-focal exam anxious Results - Laboratory Findings CBC and BMP: 10/01/17 03:41 10/01/17 03:41 ABG ABG pH 7.42 pH Units (7.32-7.45) 09/30/17 04:50 ABG pCO2 41 mmHg (35-45) 09/30/17 04:50 ABG pO2 91 mmHg (85-104) 09/30/17 04:50 ABG O2 Saturation 97 % (95-98) 09/30/17 04:50 PT/INR, D-dimer PT 12.0 Seconds (9.4-12.1) 09/29/17 06:00 Abnormal lab findings: Abnormal lab results RBC 3.42 M/mcL (3.82-4.97) L 10/01/17 03:41 Hgb 10.0 g/dL (11.5-15.4) L 10/01/17 03:41 Hct 29.8 % (35.3-44.9) L 10/01/17 03:41 ABG Total CO2 28 mEq/L (20-26) H 09/30/17 04:50 Chloride 109 mEq/L (98-107) H 10/01/17 03:41 POC Glucose 274 (58-89) H 09/30/17 19:00 Serum Osmolality 278 mOsm/kg (280-300) L 09/30/17 15:50 Calcium 8.4 mg/dL (8.6-10.3) L 10/01/17 03:41 Venous Ioniz Calcium 1.11 mmol/L (1.15-1.35) L 09/30/17 02:41 Total Bilirubin 1.3 mg/dL (0.3-1.0) H 09/29/17 06:00 Creatine Kinase 477 Units/L (30-223) H 09/29/17 06:58 Troponin I 0.07 ng/mL (< 0.04) H* 09/30/17 02:30 Urine Blood Trace (Negative) H 09/29/17 06:06 Ur Squamous Epith Cells Many per lpf (None-Few) H 09/29/17 06:06 Urine Osmolality 105 mOsm/kg (300-1090) L 09/30/17 13:30 CSF Glucose 74 mg/dL (40-70) H 09/29/17 12:15 Vancomycin Trough 7.7 mcg/mL (10-20) L 09/30/17 21:09 Salicylates < 5.0 mg/dL (15.0-30.0) L 09/29/17 10:52 Acetaminophen < 1.0 mcg/mL (10-30) L 09/29/17 10:52 U Marijuana (THC) Screen Positive ng/mL (Cutoff = 50) H 09/29/17 06:06 - Microbiology Findings Microbiology Findings: Microbiology, Last 48 Hours 09/29/17 20:11 Sputum Culture - Preliminary Sputum Staphylococcus aureus 09/29/17 12:19 Gram Stain - Final Cerebral Spinal Fluid CSF Culture - Preliminary - Clinical Findings Intake & Output: Intake & Output 09/30/17 10/01/17 10/01/17 23:59 07:59 15:59 Intake Total 597 / 597 605 / 605 Output Total 2200 / 2200 750 / 750 Balance -1603 / -1603 -145 / -145 Weight 61.9 kg - VTE Documentation of Mechanical Device: Intermittent pneumatic compression device Consult Discharge Plan - Plan Referrals: Haja Loyd, PAC [Primary Care Provider] - Prescriptions: Sulfamethoxazole/Trimeth DS [Bactrim DS] 1 each PO BID 10 Days #20 tablet - Attending Attestation I examined this patient and my medical decision-making was reviewed with the Resident Physician. I agree with the documented findings, disposition and treatment plan as described except to the extent set forth below. <Vineet Madison W - Last Filed: 10/01/17 13:19> Date of Encounter: 10/01/17 Objective PUL Vital signs: Last Vital Signs Temp 97.8 F 10/01/17 08:34 Pulse 92 10/01/17 08:00 Resp 18 10/01/17 08:00 BP 145/87 10/01/17 08:00 Pulse Ox 97 10/01/17 08:00 Results - Laboratory Findings CBC and BMP: 10/01/17 03:41 10/01/17 03:41 ABG ABG pH 7.42 pH Units (7.32-7.45) 09/30/17 04:50 ABG pCO2 41 mmHg (35-45) 09/30/17 04:50 ABG pO2 91 mmHg (85-104) 09/30/17 04:50 ABG O2 Saturation 97 % (95-98) 09/30/17 04:50 PT/INR, D-dimer PT 12.0 Seconds (9.4-12.1) 09/29/17 06:00 Abnormal lab findings: Abnormal lab results RBC 3.42 M/mcL (3.82-4.97) L 10/01/17 03:41 Hgb 10.0 g/dL (11.5-15.4) L 10/01/17 03:41 Hct 29.8 % (35.3-44.9) L 10/01/17 03:41 ABG Total CO2 28 mEq/L (20-26) H 09/30/17 04:50 Chloride 109 mEq/L (98-107) H 10/01/17 03:41 POC Glucose 274 (58-89) H 09/30/17 19:00 Serum Osmolality 278 mOsm/kg (280-300) L 09/30/17 15:50 Calcium 8.4 mg/dL (8.6-10.3) L 10/01/17 03:41 Venous Ioniz Calcium 1.11 mmol/L (1.15-1.35) L 09/30/17 02:41 Total Bilirubin 1.3 mg/dL (0.3-1.0) H 09/29/17 06:00 Creatine Kinase 477 Units/L (30-223) H 09/29/17 06:58 Troponin I 0.07 ng/mL (< 0.04) H* 09/30/17 02:30 Urine Blood Trace (Negative) H 09/29/17 06:06 Ur Squamous Epith Cells Many per lpf (None-Few) H 09/29/17 06:06 Urine Osmolality 105 mOsm/kg (300-1090) L 09/30/17 13:30 CSF Glucose 74 mg/dL (40-70) H 09/29/17 12:15 Vancomycin Trough 7.7 mcg/mL (10-20) L 09/30/17 21:09 Salicylates < 5.0 mg/dL (15.0-30.0) L 09/29/17 10:52 Acetaminophen < 1.0 mcg/mL (10-30) L 09/29/17 10:52 U Marijuana (THC) Screen Positive ng/mL (Cutoff = 50) H 09/29/17 06:06 - Microbiology Findings Microbiology Findings: Microbiology, Last 48 Hours 09/29/17 20:11 Sputum Culture - Preliminary Sputum Staphylococcus aureus 09/29/17 12:19 Gram Stain - Final Cerebral Spinal Fluid CSF Culture - Preliminary - Clinical Findings Intake & Output: Intake & Output 09/30/17 10/01/17 10/01/17 23:59 07:59 15:59 Intake Total 597 / 597 605 / 605 Output Total 2200 / 2200 750 / 750 550 / 550 Balance -1603 / -1603 -145 / -145 -550 / -550 Weight 61.9 kg - Attending Attestation I examined this patient and my medical decision-making was reviewed with the Resident Physician. I agree with the documented findings, disposition and treatment plan as described except to the extent set forth below. We independently had [id number] contact with the patient Patient seen and examined at bedside Labs, radiology, chart personally reviewed. I spoke with the patient at bedside and she was adamant that she wanted to leave this morning I explained that we still need to transition to oral antibiotics for possible MRSA pneumonia as well as oral antiepileptic medication and that we needed more time to make sure that the plan was in place that she could safely transition his medication to be discharged this could be potentially done as early as later in the afternoon: The patient was adamant that she wanted to leave in the morning expressing a desire to smoke. Nicotine replacement and she said that she did not want any and was going to leave regardless of what I explained. I told her that she was at risk of having a similar recurrent of what happened and this could be fatal she could have a seizure which could also be fatal and pneumonia untreated could also be fatal she expressed understanding but denied my request to remain in the hospital at this time and left AGAINST MEDICAL ADVICE she was clearly medically competent to make this decision We did provide the patient with a prescription for an oral antibiotic that may be suitable for treating MRSA and reinforcing the need to follow-up with the patient's primary care physician as soon as possible.
[2017-10-01 08:14] VITALS: BP 145/87
[2017-10-01] MEDS ORDERED: Aminoglycoside Consult 1 EACH MC ONE (09:39)
[2017-10-03 08:08] LABS: HSV 1 Glycoprotein G IgG CSF 0.17 IV (<=0.89); HSV 2 Glycoprotein G IgG CSF 0.02 IV (<=0.89)
--- NOTE | 2017-10-06 10:42 | Discharge Summary ---
Date of Encounter: 10/06/17 Time of Encounter: 10:40 - Discharge Diagnosis (1) MRSA (methicillin resistant staph aureus) culture positive Priority: Secondary Status: Acute (2) Altered mental status Priority: Primary Status: Acute Qualifiers: Altered mental status type: unspecified Qualified Code(s): R41.82 - Altered mental status, unspecified (3) Encephalopathy Priority: Primary Status: Acute (4) Hypertensive emergency Priority: Secondary Status: Acute (5) Tobacco abuse Priority: Secondary Status: Chronic - Discharge Medications Prescriptions: Sulfamethoxazole/Trimeth DS [Bactrim DS] 1 each PO BID 10 Days #20 tablet Home Medications: Albuterol Sulfate [Proair Hfa] 1 - 2 puff IH Q6H 10/16/15 [History] Alprazolam [Xanax] 1 mg PO TID 10/16/15 [History] Budesonide/Formoterol 160/4.5 [Symbicort 160/4.5] 2 puff IH BID 10/16/15 [ History] Lansoprazole [Prevacid] 30 mg PO HS 10/16/15 [History] Nitroglycerin [Nitrostat] 0.4 mg SL AD PRN 10/16/15 [History] Ropinirole HCl [Requip] 0.25 mg PO HS 10/16/15 [History] Sertraline [Zoloft] 100 mg PO BID 10/16/15 [History] Tiotropium [Spiriva] 18 mcg IH HS 10/16/15 [History] Topiramate [Topamax] 50 mg PO QAM 10/16/15 [History] Topiramate [Topamax] 100 mg PO HS 10/16/15 [History] Trazodone HCl [TraZODone] 300 mg PO HS 10/16/15 [History] Methocarbamol [Robaxin] 750 mg PO BID 07/30/16 [History] Aspirin [Lo-Dose Aspirin EC] 81 mg PO DAILY 09/15/17 [History] Atorvastatin [Lipitor] 40 mg PO HS 09/15/17 [History] Clopidogrel [Plavix] 75 mg PO DAILY 09/15/17 [History] Etodolac [Lodine] 400 mg PO BID 09/15/17 [History] Folic Acid 0.8 mg PO DAILY 09/15/17 [History] Gabapentin [Neurontin] 800 mg PO QID 09/15/17 [History] Carvedilol 12.5 mg PO BID 09/29/17 [History] Fluticasone Propionate Nasal [Flonase] 1 spr NS DAILY 09/29/17 [History] HYDROcodone/Acet 5/325 mg [[place] 5-325 mg] 1 tab PO TID PRN 09/29/17 [History] Isosorbide MONOnitrate (24 HR) [Imdur] 30 mg PO DAILY 09/29/17 [History] Losartan [Cozaar] 25 mg PO DAILY 09/29/17 [History] Mv,Fe,Min/Lutein [A Thru Z [employer] Tablet] 1 tab PO DAILY 09/29/17 [ History] Tolterodine LA (24 HR) [Detrol LA] 2 mg PO DAILY 09/29/17 [History] Sulfamethoxazole/Trimeth DS [Bactrim DS] 1 each PO BID 10 Days #20 tablet [Rx] Allergies/Adverse Reactions: 3 Allergy/AdvReac Type Severity Reaction Status Date / Time codeine Allergy Hives Verified 01/07/17 21:10 ondansetron Allergy Rash Verified 09/29/17 07:50 [From Zofran (as hydrochloride)] propranolol [From Inderal LA] Allergy Hives Verified 01/07/17 21:10 tramadol [From Ultram] Allergy Hives Verified 01/07/17 21:10 ibuprofen AdvReac Nausea Verified 01/07/17 21:10 Date of admission: 09/29/17 09:21 Primary care physician: Haja Loyd Consults: 09/29/17 09:55 Consult to Neurology [CONS] Routine Consulting Provider: [facility] Reason for Consult: Encephalopathy Call Completed: Yes 09/30/17 09:37 Consult to Produce Sorter [CONS] Routine Reason for SW Consult: Concerns with family behavior and home safety 09/30/17 11:29 Consult to Interpret Exam [CONS] Routine Consulting Provider: Renate Frey I Consult to Interpret Exam: Interpret EEG Discharging clinician: Vineet Madison Anticipated date of discharge: 10/01/17 - Patient Status Disposition: Left Against Medical Advice Condition: Fair Functional capacity at discharge: independent ambulation Overall status at discharge: patient is not back to baseline - Discharge Instructions Follow Up With: Haja Loyd, PAC [Primary Care Provider] - Interval History: Patient was brought to ED for AMS and on presentation was noted to have hypertensive emergency and was intubated for airway protection. Head CT w/o acute process she was transferred to ED where BP was stabilized to abut 20% reduction with sedatives for vent including fentanyl and precedex. She had a low grade fever and empiric antimicrobial for meningitis were started. Neurology was consulted who performed LP which was not consistent with meningitis.EEG not c/w epileptiform activity. She was noted to have hypotension which was thought s/t sedation and that was held and A line was placed for closer monitoring and vasopressor started after placment of a CVC. ECHO was performed which showed preserved EF. Sputum + for MRSA and Vancomycin was continued and rest of antimicrobials started. By day 2 she was successfully extubated from vent and had improvement in overall mental status. By day three she was in process of being transferred to medical telemetry but patient left against medical advice. A Rx for sulfa x 10 days was given for MRSA in sputum although final speciation was not back a time that patient left AMA. Hospital course: Ms. Coto is a 47 year old female - Time Spent with Patient Total time spent providing and/or coordinating discharge services: - Constitutional Vitals: Temp Pulse Resp BP Pulse Ox 97.8 F 92 18 145/87 97 10/01/17 08:34 10/01/17 08:00 10/01/17 08:00 10/01/17 08:00 10/01/17 08:00 - VTE Documentation of Mechanical Device: Intermittent pneumatic compression device
== END 2017-10-01 09:40 | disposition left against medical advice (07) | DRG 304 ==
LOC: EMEROO 05:28 → ICNU 09:21
PROVIDERS: ADMIT Internal Medicine Hospice and Palliative Medicine; ATTEND Internal Medicine Hospice and Palliative Medicine

== ENCOUNTER 2017-11-17 21:57 | Inpatient (IN) ==
[2017-11-17] MEDS ORDERED: Nitroglycerin 0.4 MG TAB.SUBL SL ONE (22:06)
--- NOTE | 2017-11-17 22:11 | Emergency Department Note ---
Disposition Clinical Impression: NSTEMI (non-ST elevated myocardial infarction) Disposition: Admitted As Inpatient Condition: Serious Referrals: Haja Loyd, PAC [Primary Care Provider] - Forms: ED Satisfaction Letter Time of Disposition: 23:46 Chest Pain HPI - General Chief Complaint: ED Chest Pain Stated Complaint: chest pain Time Seen by Provider: 11/17/17 21:59 Source: patient Mode of arrival: EMS Limitations: no limitations Vital Signs Reviewed: Yes Nursing Notes Reviewed: Yes - History of Present Illness HPI Narrative: 81-vxxm-jss-year-old female with history of MT in July 2015 arrives to the emergency department with complaint of left-sided chest pain radiating bilaterally. The patient states she has associated nausea and shortness of breath. The patient states this feels identical to her previous MT in 2014. The patient denies any other complaints at this time other than feeling very anxious. She was given 324 aspirin in route and was also administered sublingual nitroglycerin which did begin to help her pain. She is otherwise resting comfortably but is very anxious in the room at this time. She denies any other complaints. - Related Data Home Medications Medication Instructions Recorded Confirmed Albuterol Sulfate [Proair Hfa] 2 puff IH Q6H PRN 10/16/15 11/17/17 Alprazolam [Xanax] 1 mg PO TID 10/16/15 11/17/17 Budesonide/Formoterol 160/4.5 2 puff IH BID 10/16/15 11/17/17 [Symbicort 160/4.5] Lansoprazole [Prevacid] 30 mg PO HS 10/16/15 11/17/17 Nitroglycerin [Nitrostat] 0.4 mg SL Q5M PRN 10/16/15 11/17/17 Ropinirole HCl [Requip] 0.25 mg PO HS 10/16/15 11/17/17 Sertraline [Zoloft] 100 mg PO BID 10/16/15 11/17/17 Tiotropium [Spiriva] 18 mcg IH HS 10/16/15 11/17/17 Topiramate [Topamax] 50 mg PO QAM 10/16/15 11/17/17 Topiramate [Topamax] 100 mg PO HS 10/16/15 11/17/17 Trazodone HCl [TraZODone] 300 mg PO HS 10/16/15 11/17/17 Aspirin [Lo-Dose Aspirin EC] 81 mg PO DAILY 09/15/17 11/17/17 Clopidogrel [Plavix] 75 mg PO DAILY 09/15/17 11/17/17 Folic Acid 0.8 mg PO DAILY 09/15/17 11/17/17 Gabapentin [Neurontin] 800 mg PO QID 09/15/17 11/17/17 Fluticasone Propionate Nasal 1 spr NS DAILY 09/29/17 11/17/17 [Flonase] HYDROcodone/Acet 5/325 mg [[place] 1 tab PO TID PRN 09/29/17 11/17/17 5-325 mg] Isosorbide MONOnitrate (24 HR) 30 mg PO DAILY 09/29/17 11/17/17 [Imdur] Losartan [Cozaar] 25 mg PO DAILY 09/29/17 11/17/17 Tolterodine LA (24 HR) [Detrol LA] 2 mg PO DAILY 09/29/17 11/17/17 Carvedilol [Coreg] 25 mg PO BID 11/17/17 11/17/17 Cyclobenzaprine [Flexeril] 10 mg PO TID 11/17/17 11/17/17 Dicyclomine [Bentyl] 20 mg PO QID 11/17/17 11/17/17 Etodolac 200 mg PO TID 11/17/17 11/17/17 Meclizine HCl [Verticalm] 25 mg PO BID PRN 11/17/17 11/17/17 OLANZapine [Zyprexa] 10 mg PO HS 11/17/17 11/17/17 Allergies Allergy/AdvReac Type Severity Reaction Status Date / Time codeine Allergy Hives Verified 01/07/17 21:10 ondansetron Allergy Rash Verified 09/29/17 07:50 [From Zofran (as hydrochloride)] propranolol [From Inderal LA] Allergy Hives Verified 01/07/17 21:10 tramadol [From Ultram] Allergy Hives Verified 01/07/17 21:10 ibuprofen AdvReac Nausea Verified 01/07/17 21:10 All systems ED: reviewed and negative except as stated. Constitutional: Denies: fever, chills, weakness ENT ED: Denies: congestion Cardiovascular: Reports: chest pain. Denies: dyspnea on exertion, orthopnea, edema, syncope Respiratory: Reports: dyspnea. Denies: cough Gastrointestinal: Reports: nausea. Denies: abdominal pain, vomiting, diarrhea, constipation, hematemesis, melena, hematochezia Genitourinary: Denies: urgency, dysuria Musculoskeletal: Denies: back pain, neck pain Integumentary: Denies: rash, abrasion Neurological: Denies: headache, weakness Psychiatric: Reports: anxiety Chest Pain PMH - Past Medical History Medical history: Reports: COPD, coronary artery disease, CVA, GERD, hypertension , myocardial infarction Surgical history: Reports: angioplasty/stent, cholecystectomy, herniorrhaphy, hysterectomy, orthopedic, other Psychiatric history: Reports: anxiety, bipolar, depression, panic disorder, PTSD , prior suicide attempt 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: bilateral tubal ligation - Social History Smoking Status: Current every day smoker Alcohol use: Reports: rarely Drug use: Reports: marijuana Physical Exam - General Limitations: no limitations General appearance: alert, anxious - Head Head exam: atraumatic, normocephalic, normal inspection - Eye Eye exam: Present: normal appearance, PERRL, EOMI - ENT ENT exam: normal exam, normal oropharynx, mucous membranes moist - Neck Neck exam: Present: normal inspection, full ROM, trachea midline - Chest Chest inspection: Present: normal inspection, symmetric chest wall rise - Respiratory Respiratory exam: Present: normal lung sounds bilaterally - Cardiovascular Cardiovascular exam: Present: regular rate, normal rhythm, normal heart sounds - Abdominal Exam Abdominal exam: Present: soft, Non-Tender. Absent: tenderness, distention, guarding, rebound, rigidity - Extremities Exam Extremities exam: Present: normal inspection, full ROM. Absent: tenderness, pedal edema - Neurological Exam Neurological exam: Present: alert, oriented X3, CN II-XII intact - Expanded Neurological Exam Coma Scale Eye Opening: Spontaneous Coma Scale Motor Response: Obeys Commands Coma Scale Verbal Response: Oriented Coma Scale Total: 15 - Psychiatric Psychiatric exam: Present: anxious - Skin Skin exam: Present: warm, dry, intact, normal color Course - Reevaluation(s) Reevaluation #1: Patient told the nurse that she had a fall and is complaining of headache. Time: 22:32 - Consultations Consultation #1: Spoke to Dr. Dejesus and cardiology who had no further recommendations at this time. He agreed to see patient once admitted. He recommended treating as ACS with heparin drip. Time: 23:18 Vital Signs Temperature 98 F 11/17/17 22:00 Pulse Rate 112 11/17/17 22:00 Respiratory Rate 16 11/17/17 22:00 Blood Pressure 132/103 11/17/17 22:00 O2 Sat by Pulse Oximetry 98 11/17/17 22:00 Temperature 98 F 11/17/17 22:00 Pulse Rate 109 11/17/17 22:32 Respiratory Rate 18 11/17/17 22:32 Blood Pressure 115/86 11/17/17 22:32 O2 Sat by Pulse Oximetry 98 11/17/17 22:32 Oxygen Delivery Oxygen Delivery Nasal Cannula Chest Pain - MDM Narrative Medical decision making narrative: Workup in the emergency department demonstrates inferior lateral ST depression that is mild and some flattening T waves throughout. In addition the patient's troponin is elevated at 0.2. The patient has an acute kidney injury noted as well. The patient states she is feeling better after getting some nitroglycerin at this time. I proceed with cardiology and reviewing the patient 's labs and previous history, we will start the patient on a heparin drip at this time. The patient was administered 324 aspirin in route from EMS. The patient was made aware and agrees to plan of care. No further questions or concerns noted at this time. We will but the patient to the hospital. Accepted by Dr. Borja. - Lab Data Lab results reviewed: Yes I reviewed the patient's lab results. Result diagrams: 11/17/17 22:16 11/17/17 22:16 Lab Results 11/17/17 11/17/17 11/17/17 Range/Units 22:06 22:16 22:16 WBC 9.2 (4.3-11.1) K/mcL RBC 3.97 (3.82-4.97) M/mcL Hgb 11.8 (11.5-15.4) g/dL Hct 35.5 (35.3-44.9) % MCV 89.4 (83.0-100.0) fL MCH 29.7 (28.0-33.3) pg MCHC 33.2 (31.6-35.5) g/dL RDW 13.6 (11.5-14.5) % Plt Count 236 (140-400) K/mcL MPV 9.8 (9.4-12.4) fL Immature Gran % 0.4 (0-4) % Seg Neutrophils % 65.4 % Lymphocytes % 27.4 % Monocytes % 6.0 % Eosinophils % 0.1 % Basophils % 0.7 % Neutrophils # 6.0 (1.6-8.9) K/mcL Lymphocytes # 2.5 (0.6-4.6) K/mcL Monocytes # 0.6 (0.0-1.3) K/mcL Eosinophils # 0.0 (0.0-0.6) K/mcL Basophils # 0.1 (0.0-0.2) K/mcL PT 12.2 H (9.4-12.1) Seconds INR 1.1 APTT 27.7 (26.0-36.0) Seconds Sodium 137 (136-145) mEq/L Potassium 3.2 L (3.5-5.1) mEq/L Chloride 106 (98-107) mEq/L Carbon Dioxide 22 L (23-29) mEq/L BUN 9 (6-20) mg/dL Creatinine 1.35 H (0.60-1.20) mg/dL Est GFR ( Amer) 51 L (> 60) Est GFR (Non-Af Amer) 42 L (> 60) BUN/Creatinine Ratio 7 (6-26) Glucose 94 (70-105) mg/dL Calculated Osmolality 282 (280-300) Calcium 9.0 (8.6-10.3) mg/dL Troponin I 0.20 H* (< 0.04) ng/mL - Radiology Data Radiology results reviewed: Yes I reviewed the patient's radiology results. Chest X-Ray 11/17/17 22:06 IMPRESSION: No acute cardiopulmonary abnormality. D/ / Solo Batres / Solo Batres Interpreting Provider: Solo Batres Head CT 11/17/17 22:31 IMPRESSION: Right hemispheric old infarct. No acute infarct. No acute hemorrhage. D/ / Aris Fairbanks / Aris Fairbanks Interpreting Provider: Aris Fairbanks - EKG Data EKG attestation: Yes I reviewed and interpreted this EKG. EKG results narrative: Heart rate 1 14 bpm. Sinus tachycardia. No ST elevation but mild ST depression noted in leads 2, aVF, V4, V5 and may be V6. The patient also has flattening of T-wave throughout. These were all compared to an EKG from 2017.
[2017-11-17 22:27] LABS: Basophils # 0.1 K/mcL (0.0-0.2); Basophils % 0.7 %; Eosinophils % 0.1 %; Hematocrit 35.5 % (35.3-44.9); Hemoglobin 11.8 g/dL (11.5-15.4); Immature Granulocytes % 0.4 % (0-4); Lymphocytes # 2.5 K/mcL (0.6-4.6); Lymphocytes % 27.4 %; Mean Corpuscular HGB Conc 33.2 g/dL (31.6-35.5); Mean Corpuscular Hemoglobin 29.7 pg (28.0-33.3); Mean Corpuscular Volume 89.4 fL (83.0-100.0); Mean Platelet Volume 9.8 fL (9.4-12.4); Monocytes # 0.6 K/mcL (0.0-1.3); Platelet Count 236 K/mcL (140-400); Red Blood Count 3.97 M/mcL (3.82-4.97); Red Cell Distribution Width 13.6 % (11.5-14.5); Segmented Neutrophils % 65.4 %
[2017-11-17 22:32] LABS: INR 1.1; Prothrombin Time 12.2 Seconds (9.4-12.1)
[2017-11-17 22:35] LABS: Activated Partial Thrombo Time 27.7 Seconds (26.0-36.0)
[2017-11-17 22:46] LABS: Potassium 3.2 mEq/L (3.5-5.1)
[2017-11-17 22:49] LABS: Troponin I 0.2 ng/mL (< 0.04)
[2017-11-17] MEDS ORDERED: *HR* Heparin 5,000 UNIT/ML VIAL IVP PRN ×2 (23:29)
[2017-11-17] MEDS ORDERED: *HR* Heparin 5,000 UNIT/ML VIAL IVP ONE (23:29)
[2017-11-17] MEDS ORDERED: Heparin 25,000 UNIT/500 ML D5W 25,000 UNIT/500 ML BAG IVC SCH (23:30)
[2017-11-18] MEDS ORDERED: Naloxone 0.4 MG/ML INJ IVP PRN (01:06)
[2017-11-18] MEDS ORDERED: 0.9 % Sodium Chloride 1,000 ML IVC SCH (01:15)
[2017-11-18] MEDS ORDERED: *HR* Metoprolol 5 MG/5 ML VIAL IVP PRN (01:22)
[2017-11-18] MEDS ORDERED: Potassium Chloride 40 MEQ, Lidocaine 1% 2 ML in D5% in Water 500 ML IVPB ONE (01:24)
--- NOTE | 2017-11-18 01:25 | Emergency Department Note ---
Disposition Clinical Impression: NSTEMI (non-ST elevated myocardial infarction) Disposition: Admitted As Inpatient Condition: Serious General Adult HPI - General Chief complaint: ED Chest Pain Stated complaint: chest pain Time Seen by Provider: 11/17/17 21:59 Source: patient Mode of arrival: EMS Limitations: no limitations - History of Present Illness Pain Scale: 5 - Related Data Home Medications Medication Instructions Recorded Confirmed Albuterol Sulfate [Proair Hfa] 2 puff IH Q6H PRN 10/16/15 11/17/17 Alprazolam [Xanax] 1 mg PO TID 10/16/15 11/17/17 Budesonide/Formoterol 160/4.5 2 puff IH BID 10/16/15 11/17/17 [Symbicort 160/4.5] Lansoprazole [Prevacid] 30 mg PO HS 10/16/15 11/17/17 Nitroglycerin [Nitrostat] 0.4 mg SL Q5M PRN 10/16/15 11/17/17 Ropinirole HCl [Requip] 0.25 mg PO HS 10/16/15 11/17/17 Sertraline [Zoloft] 100 mg PO BID 10/16/15 11/17/17 Tiotropium [Spiriva] 18 mcg IH HS 10/16/15 11/17/17 Topiramate [Topamax] 50 mg PO QAM 10/16/15 11/17/17 Topiramate [Topamax] 100 mg PO HS 10/16/15 11/17/17 Trazodone HCl [TraZODone] 300 mg PO HS 10/16/15 11/17/17 Aspirin [Lo-Dose Aspirin EC] 81 mg PO DAILY 09/15/17 11/17/17 Clopidogrel [Plavix] 75 mg PO DAILY 09/15/17 11/17/17 Folic Acid 0.8 mg PO DAILY 09/15/17 11/17/17 Gabapentin [Neurontin] 800 mg PO QID 09/15/17 11/17/17 Fluticasone Propionate Nasal 1 spr NS DAILY 09/29/17 11/17/17 [Flonase] HYDROcodone/Acet 5/325 mg [[place] 1 tab PO TID PRN 09/29/17 11/17/17 5-325 mg] Isosorbide MONOnitrate (24 HR) 30 mg PO DAILY 09/29/17 11/17/17 [Imdur] Losartan [Cozaar] 25 mg PO DAILY 09/29/17 11/17/17 Tolterodine LA (24 HR) [Detrol LA] 2 mg PO DAILY 09/29/17 11/17/17 Carvedilol [Coreg] 25 mg PO BID 11/17/17 11/17/17 Cyclobenzaprine [Flexeril] 10 mg PO TID 11/17/17 11/17/17 Dicyclomine [Bentyl] 20 mg PO QID 11/17/17 11/17/17 Etodolac 200 mg PO TID 11/17/17 11/17/17 Meclizine HCl [Verticalm] 25 mg PO BID PRN 11/17/17 11/17/17 OLANZapine [Zyprexa] 10 mg PO HS 11/17/17 11/17/17 Allergies Allergy/AdvReac Type Severity Reaction Status Date / Time codeine Allergy Hives Verified 01/07/17 21:10 ondansetron Allergy Rash Verified 09/29/17 07:50 [From Zofran (as hydrochloride)] propranolol [From Inderal LA] Allergy Hives Verified 01/07/17 21:10 tramadol [From Ultram] Allergy Hives Verified 01/07/17 21:10 ibuprofen AdvReac Nausea Verified 01/07/17 21:10 Constitutional: Denies: fever, chills, weakness ENT ED: Denies: congestion Cardiovascular: Reports: chest pain. Denies: dyspnea on exertion, orthopnea, edema, syncope Respiratory: Reports: dyspnea. Denies: cough Gastrointestinal: Reports: nausea. Denies: abdominal pain, vomiting, diarrhea, constipation, hematemesis, melena, hematochezia Genitourinary: Denies: urgency, dysuria Musculoskeletal: Denies: back pain, neck pain Integumentary: Denies: rash, abrasion Neurological: Denies: headache, weakness Psychiatric: Reports: anxiety Past Medical History - Past Medical History Medical history: Reports: COPD, coronary artery disease, CVA, GERD, hypertension , myocardial infarction Surgical history: Reports: angioplasty/stent, cholecystectomy, herniorrhaphy, hysterectomy, orthopedic, other Psychiatric history: Reports: anxiety, bipolar, depression, panic disorder, PTSD , prior suicide attempt 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 - Social History Smoking Status: Current every day smoker Smokeless Tobacco Status: No Alcohol use: Reports: rarely Drug use: Reports: marijuana Physical Exam - General Limitations: no limitations General appearance: alert, anxious Course Vital Signs Temperature 98 F 11/17/17 22:00 Pulse Rate 112 11/17/17 22:00 Respiratory Rate 16 11/17/17 22:00 Blood Pressure 132/103 11/17/17 22:00 O2 Sat by Pulse Oximetry 98 11/17/17 22:00 Temperature 98 F 11/17/17 22:00 Pulse Rate 99 11/18/17 00:40 Respiratory Rate 16 11/18/17 00:40 Blood Pressure 115/87 11/18/17 00:40 O2 Sat by Pulse Oximetry 96 11/18/17 00:40 Oxygen Delivery Oxygen Delivery Nasal Cannula Medical Decision Making - Lab Data Result diagrams: 11/17/17 22:16 11/17/17 22:16 Lab Results 11/17/17 11/17/17 11/17/17 Range/Units 22:06 22:16 22:16 WBC 9.2 (4.3-11.1) K/mcL RBC 3.97 (3.82-4.97) M/mcL Hgb 11.8 (11.5-15.4) g/dL Hct 35.5 (35.3-44.9) % MCV 89.4 (83.0-100.0) fL MCH 29.7 (28.0-33.3) pg MCHC 33.2 (31.6-35.5) g/dL RDW 13.6 (11.5-14.5) % Plt Count 236 (140-400) K/mcL MPV 9.8 (9.4-12.4) fL Immature Gran % 0.4 (0-4) % Seg Neutrophils % 65.4 % Lymphocytes % 27.4 % Monocytes % 6.0 % Eosinophils % 0.1 % Basophils % 0.7 % Neutrophils # 6.0 (1.6-8.9) K/mcL Lymphocytes # 2.5 (0.6-4.6) K/mcL Monocytes # 0.6 (0.0-1.3) K/mcL Eosinophils # 0.0 (0.0-0.6) K/mcL Basophils # 0.1 (0.0-0.2) K/mcL PT 12.2 H (9.4-12.1) Seconds INR 1.1 APTT 27.7 (26.0-36.0) Seconds Sodium 137 (136-145) mEq/L Potassium 3.2 L (3.5-5.1) mEq/L Chloride 106 (98-107) mEq/L Carbon Dioxide 22 L (23-29) mEq/L BUN 9 (6-20) mg/dL Creatinine 1.35 H (0.60-1.20) mg/dL Est GFR ( Amer) 51 L (> 60) Est GFR (Non-Af Amer) 42 L (> 60) BUN/Creatinine Ratio 7 (6-26) Glucose 94 (70-105) mg/dL Calculated Osmolality 282 (280-300) Calcium 9.0 (8.6-10.3) mg/dL Troponin I 0.20 H* (< 0.04) ng/mL Critical Care Time Critical Care Time: Yes Total Critical Care Time: 40 Attestation: Critical care performed: Time is exclusive of separately billable procedures. Time includes: direct patient care, patient reassessment, coordination of patient care, interpretation of data (laboratory data, radiology data, and respiratory data), review of patient's medical records, medical consultation and documentation of patient care. Procedures included in critical care time: Procedures excluded from critical care time: Attestation Statement - Attestation Attestation: ISabino MD, personally evaluated this patient and discussed their management with the resident physician. I reviewed the resident's note and agree with the documented findings, medical decision making, and plan of care. 47-year-old female with history of coronary artery disease and previous [place] presents to the emergency department with a complaint of some left-sided chest pain since about 10 AM today. No radiation the pain. Some shortness of breath. Some nausea but no vomiting. No diaphoresis. On examination patient is a well-developed well-nourished female in no acute distress. She is alert and oriented 3. There is no cyanosis or diaphoresis. Chest is nontender to palpation. Breath sounds are clear and equal bilaterally. Heart regular rate and rhythm. Abdomen soft and nontender with normal bowel sounds. Labs reviewed. Troponin 0.20. EKG shows sinus tachycardia with a heart rate of 114. There are some new T-wave flattening in the inferior and anterolateral leads as well as some mild ST segment depression. No acute ST elevations. Chest x-ray negative. Head CT shows no acute infarct or hemorrhage. Dr. Bergman discussed the case with the railway track worker solutions consultant, Dr. Dejesus, and he recommended admission by the hospitalist and starting patient on heparin. Patient was started on heparin infusion here in the emergency department. The hospitalist, Dr. Borja, was consulted and accepted admission of the patient.
--- NOTE | 2017-11-18 01:30 | Internal Med History&Physical ---
Date of Encounter: 11/18/17 Time of Encounter: 00:30 Assessment and Plan (1) Acute renal failure (ARF) Current visit: No Status: Acute Patient has mild elevated creatinine from baseline. Will place patient on IV fluid and follow-up renal function in a.m. Qualifiers: Acute renal failure type: unspecified Qualified Code(s): N17.9 - Acute kidney failure, unspecified (2) Non-ST elevated myocardial infarction Current visit: Yes Status: Chronic Patient has typical chest pain with elevated troponin. Consider NSTEMI - Continuous cardiac monitoring - Track total 3 sets of troponin - Heparin drip was started per cardiology - Cardiology consult (3) COPD (chronic obstructive pulmonary disease) Current visit: No Status: Chronic Stable, no wheezing. Continue home medications Qualifiers: COPD type: unspecified COPD Qualified Code(s): J44.9 - Chronic obstructive pulmonary disease, unspecified (4) Bipolar 1 disorder Current visit: No Status: Chronic Continue home medications (5) Tobacco abuse Current visit: No Status: Chronic Smoking cessation education. Patient said that she does not need nicotine patch (6) CAD (coronary artery disease) Current visit: No Status: Chronic Continue home medications. Closely monitor patient for NSTEMI Qualifiers: Coronary Disease-Associated Artery/Lesion type: [place] artery [place] vs. transplanted heart: unspecified whether [place] or transplanted heart Associated angina: angina presence unspecified Qualified Code(s): I25.10 - Atherosclerotic heart disease of [place] coronary artery without angina pectoris Internal Medicine - H&P: HPI Chief complaint: Chest pain Admitted From: Home Plans for Post Hospital Care: Home History of present illness: Ms. Coto is a 47 year old female with history of CAD S/P stent, COPD, hypertension, bipolar disorder, presented to ER for chest pain. The patient said the pain started from this morning. The pain located on left chest and radiated to left arm. Pain is intermittent, every episode lasted several minutes. Patient has nausea, shortness of breasts, and diaphoresis during chest pain. Patient was given nitroglycerin sublingual, which helped to resolve chest pain. In the emergency room, patient was found elevated troponin. Heparin drip was started for NSTEMI. Past Med Surg Social Fam HX - Past Medical History Medical history: COPD, coronary artery disease, CVA, GERD, hypertension, myocardial infarction Psychiatric history: anxiety, bipolar, depression, panic disorder, PTSD, prior suicide attempt - Past Surgical History Surgical History: angioplasty/stent, cholecystectomy, herniorrhaphy, hysterectomy, orthopedic, other - Social History Smoking Status: Current every day smoker Smokeless Tobacco Status: No Alcohol use: rarely Drug use: marijuana - Family History Mother Living Status: Hx Family Cancer: Yes Father Living Status: Hx Family Cardiac Disorders: Yes (NE) Internal Medicine - H&P: Meds Albuterol Sulfate [Proair Hfa] 2 puff IH Q6H PRN 10/16/15 [History] Alprazolam [Xanax] 1 mg PO TID 10/16/15 [History] Budesonide/Formoterol 160/4.5 [Symbicort 160/4.5] 2 puff IH BID 10/16/15 [ History] Lansoprazole [Prevacid] 30 mg PO HS 10/16/15 [History] Nitroglycerin [Nitrostat] 0.4 mg SL Q5M PRN 10/16/15 [History] Ropinirole HCl [Requip] 0.25 mg PO HS 10/16/15 [History] Sertraline [Zoloft] 100 mg PO BID 10/16/15 [History] Tiotropium [Spiriva] 18 mcg IH HS 10/16/15 [History] Topiramate [Topamax] 50 mg PO QAM 10/16/15 [History] Topiramate [Topamax] 100 mg PO HS 10/16/15 [History] Trazodone HCl [TraZODone] 300 mg PO HS 10/16/15 [History] Aspirin [Lo-Dose Aspirin EC] 81 mg PO DAILY 09/15/17 [History] Clopidogrel [Plavix] 75 mg PO DAILY 09/15/17 [History] Folic Acid 0.8 mg PO DAILY 09/15/17 [History] Gabapentin [Neurontin] 800 mg PO QID 09/15/17 [History] Fluticasone Propionate Nasal [Flonase] 1 spr NS DAILY 09/29/17 [History] HYDROcodone/Acet 5/325 mg [[place] 5-325 mg] 1 tab PO TID PRN 09/29/17 [History] Isosorbide MONOnitrate (24 HR) [Imdur] 30 mg PO DAILY 09/29/17 [History] Losartan [Cozaar] 25 mg PO DAILY 09/29/17 [History] Tolterodine LA (24 HR) [Detrol LA] 2 mg PO DAILY 09/29/17 [History] Carvedilol [Coreg] 25 mg PO BID 11/17/17 [History] Cyclobenzaprine [Flexeril] 10 mg PO TID 11/17/17 [History] Dicyclomine [Bentyl] 20 mg PO QID 11/17/17 [History] Etodolac 200 mg PO TID 11/17/17 [History] Meclizine HCl [Verticalm] 25 mg PO BID PRN 11/17/17 [History] OLANZapine [Zyprexa] 10 mg PO HS 11/17/17 [History] 3 Allergy/AdvReac Type Severity Reaction Status Date / Time codeine Allergy Hives Verified 01/07/17 21:10 ondansetron Allergy Rash Verified 09/29/17 07:50 [From Zofran (as hydrochloride)] propranolol [From Inderal LA] Allergy Hives Verified 01/07/17 21:10 tramadol [From Ultram] Allergy Hives Verified 01/07/17 21:10 ibuprofen AdvReac Nausea Verified 01/07/17 21:10 All Systems PM: A 10-system review of systems was performed and is negative for pertinent findings except as documented above in the HPI. - Constitutional Vitals: Temp Pulse Resp BP Pulse Ox 98 F 99 16 115/87 96 11/17/17 22:00 11/18/17 00:40 11/18/17 00:40 11/18/17 00:40 11/18/17 00:40 General appearance: Present: A&O X 3, no acute distress, answers questions appropriately - Head Head exam: Present: atraumatic, normocephalic - Eye Eye exam: Present: PERRL, conjuntiva pink, sclera anicteric Pupils: Present: PERRL - Neck Neck exam general surgery: Present: supple, trachea midline. Absent: lymphadenopathy - Respiratory Respiratory exam: Present: CTAB. Absent: accessory muscle use, rales, rhonchi, wheezes - Cardiovascular Cardiovascular exam: Present: RRR, +S1, +S2. Absent: diastolic murmur, gallop, rubs, systolic murmur - GI/Abdominal GI/Abdominal exam: Present: normal bowel sounds, soft, tenderness (Mild tenderness in 4Q, no rebound or guarding), no peritoneal signs. Absent: distended - Extremities Exam Extremities exam: Present: warm, radial pulses palpable and symmetrical. Absent : calf tenderness, cyanotic, pedal edema - Neurological Exam Neurological exam: Present: CN II-XII intact, oriented X3, no focal deficits. Absent: pronater drift, facial droop, speech deficit - Skin Skin exam: Present: dry, intact Internal Med - H&P Results - Labs CBC & Chem 7: 11/17/17 22:16 11/17/17 22:16
[2017-11-18] MEDS ORDERED: *HR* HYDROcodone/Acet 5/325 mg TABLET PO PRN (01:33)
[2017-11-18 04:45] LABS: Basophils % 0.6 %; Eosinophils # 0.1 K/mcL (0.0-0.6); Hematocrit 31.9 % (35.3-44.9); Hemoglobin 10.9 g/dL (11.5-15.4); Immature Granulocytes % 0.4 % (0-4); Lymphocytes # 3.1 K/mcL (0.6-4.6); Lymphocytes % 44.2 %; Mean Corpuscular HGB Conc 34.2 g/dL (31.6-35.5); Mean Corpuscular Hemoglobin 30.4 pg (28.0-33.3); Mean Corpuscular Volume 88.9 fL (83.0-100.0); Mean Platelet Volume 9.7 fL (9.4-12.4); Monocytes # 0.5 K/mcL (0.0-1.3); Monocytes % 7.4 %; Neutrophils # 3.3 K/mcL (1.6-8.9); Platelet Count 216 K/mcL (140-400); Red Blood Count 3.59 M/mcL (3.82-4.97); Red Cell Distribution Width 13.6 % (11.5-14.5); Segmented Neutrophils % 46.4 %
[2017-11-18 05:09] LABS: Calcium 8.3 mg/dL (8.6-10.3); Potassium 3.2 mEq/L (3.5-5.1)
[2017-11-18] MEDS ORDERED: ALPRAZolam 1 MG TABLET PO SCH (09:00)
[2017-11-18] MEDS ORDERED: Topiramate 25 MG TABLET PO SCH (09:00)
[2017-11-18] MEDS ORDERED: Aspirin Enteric Coated 81 MG Tablet PO SCH (09:00)
[2017-11-18] MEDS ORDERED: Isosorbide MONOnitrate (24 HR) 30 MG TAB.ER.24H PO SCH (09:00)
[2017-11-18] MEDS ORDERED: Fluticasone Propionate Nasal 50 MCG/SPRAY BOTTLE NS SCH (09:00)
[2017-11-18] MEDS ORDERED: Folic Acid 1 MG TABLET PO SCH (09:00)
--- NOTE | 2017-11-18 09:50 | Cardiology Consult Note ---
<Lakisha Kumar Russ - Last Filed: 11/18/17 09:52> Date of Encounter: 11/18/17 Time of Encounter: 08:30 Assessment and Plan (1) Non-ST elevated myocardial infarction Current Visit: Yes Status: Chronic Troponin 0.20, 0.22, 0.20. Non-specific ST/T wave abnormalities. Pain free upon exam. Hx of CAD s/p PCI--PCI to LAD in 2014, existing 50% mRCA lesion. Negative nuclear stress 2015. Recent TTE (09/2017) demonstrated preserved LVEF with normal wall motion. Agree with IV heparin gtt, asa, statin, BB, and plavix. Recommend LHC with possible PCI; however declines and states that she is leaving today. Tearful/anxious upon exam. Given hx, consider inpatient psych consult. Risks for cardiac decompensation and discussed and patient is aware. Emphasized the importance of medication compliance, patient reports that she frequently "forgets" to take medication. Will arrange for follow-up with Dr. Allen to discuss possible outpatient LHC. (2) CAD (coronary artery disease) Current Visit: No Status: Chronic Plan as above. asa, statin, BB, plavix. Qualifiers: Coronary Disease-Associated Artery/Lesion type: [place] artery [place] vs. transplanted heart: unspecified whether [place] or transplanted heart Associated angina: angina presence unspecified Qualified Code(s): I25.10 - Atherosclerotic heart disease of [place] coronary artery without angina pectoris Discussion w patient/family: The assessment and plan as outlined above was discussed with the patient and/or family members who expressed understanding and agreement. All questions were answered. Thank you for involving us in the care of your patient. Please call with any questions. The patient will be discussed and reviewed with Dr. Urrutia, changes to be made accordingly. History of Present Illness Consult date: 11/18/17 Requesting physician: Sabino Knight Consult reason: Elevated troponin Chief complaint: Chest pain/dizziness History of present illness: Ms. Coto is a 47 year old female with PMHx significant of CAD s/p PCI, CVA, pseudoseizures, anxiety, depression, suicide attempts who presented to the ED with complaints of chest discomfort. Upon exam, patient only admits to dizziness and lightheadedness that started yesterday. Per ED documentation, patient reports chest pain with radiation down bilateral arms. Non-specific ST/T wave abnormalities noted on ECG. Troponin 0.20, 0.22, 0.20. Cardiology consulted for possible NSTEMI. Prior CV testing: TTE 09/29/17: LVEF 65%, mild LVDD, normal wall motion Loop recorder implant 07/2017. Nuclear stress 10/29/15: gated EF >70%, perfusion imaging negative for ischemia [facility] 07/2015: s/p successful PTCA/RENATA to pLAD; existing 50% mRCA stenosis Past Med Surg Social Fam HX - Past Medical History Attestation: Yes The following information was validated with the patient. Source: patient Medical history: COPD, coronary artery disease, CVA, GERD, hypertension, myocardial infarction Psychiatric history: anxiety, bipolar, depression, panic disorder, PTSD, prior suicide attempt - Past Surgical History Surgical History: angioplasty/stent, cholecystectomy, herniorrhaphy, hysterectomy, orthopedic, other - Social History Smoking Status: Current every day smoker Smokeless Tobacco Status: No Alcohol use: rarely Drug use: marijuana - Family History Mother Living Status: Hx Family Cancer: Yes Father Living Status: Hx Family Cardiac Disorders: Yes ([place]) Medications and Allergies Albuterol Sulfate [Proair Hfa] 2 puff IH Q6H PRN 10/16/15 [History] Alprazolam [Xanax] 1 mg PO TID 10/16/15 [History] Budesonide/Formoterol 160/4.5 [Symbicort 160/4.5] 2 puff IH BID 10/16/15 [ History] Lansoprazole [Prevacid] 30 mg PO HS 10/16/15 [History] Nitroglycerin [Nitrostat] 0.4 mg SL Q5M PRN 10/16/15 [History] Ropinirole HCl [Requip] 0.25 mg PO HS 10/16/15 [History] Sertraline [Zoloft] 100 mg PO BID 10/16/15 [History] Tiotropium [Spiriva] 18 mcg IH HS 10/16/15 [History] Topiramate [Topamax] 50 mg PO QAM 10/16/15 [History] Topiramate [Topamax] 100 mg PO HS 10/16/15 [History] Trazodone HCl [TraZODone] 300 mg PO HS 10/16/15 [History] Aspirin [Lo-Dose Aspirin EC] 81 mg PO DAILY 09/15/17 [History] Clopidogrel [Plavix] 75 mg PO DAILY 09/15/17 [History] Folic Acid 0.8 mg PO DAILY 09/15/17 [History] Gabapentin [Neurontin] 800 mg PO QID 09/15/17 [History] Fluticasone Propionate Nasal [Flonase] 1 spr NS DAILY 09/29/17 [History] HYDROcodone/Acet 5/325 mg [[place] 5-325 mg] 1 tab PO TID PRN 09/29/17 [History] Isosorbide MONOnitrate (24 HR) [Imdur] 30 mg PO DAILY 09/29/17 [History] Losartan [Cozaar] 25 mg PO DAILY 09/29/17 [History] Tolterodine LA (24 HR) [Detrol LA] 2 mg PO DAILY 09/29/17 [History] Carvedilol [Coreg] 25 mg PO BID 11/17/17 [History] Cyclobenzaprine [Flexeril] 10 mg PO TID 11/17/17 [History] Dicyclomine [Bentyl] 20 mg PO QID 11/17/17 [History] Etodolac 200 mg PO TID 11/17/17 [History] Meclizine HCl [Verticalm] 25 mg PO BID PRN 11/17/17 [History] OLANZapine [Zyprexa] 10 mg PO HS 11/17/17 [History] 3 Allergy/AdvReac Type Severity Reaction Status Date / Time codeine Allergy Hives Verified 01/07/17 21:10 ondansetron Allergy Rash Verified 09/29/17 07:50 [From Zofran (as hydrochloride)] propranolol [From Inderal LA] Allergy Hives Verified 01/07/17 21:10 tramadol [From Ultram] Allergy Hives Verified 01/07/17 21:10 ibuprofen AdvReac Nausea Verified 01/07/17 21:10 All Systems Review: The remainder of the systems were reviewed and are negative - Cardiovascular Cardiovascular: as per HPI Physical Examination Vital Signs, Last 4 Hours Temp Pulse Resp BP Pulse Ox 11/18/17 06:59 98.2 F 77 16 103/70 99 General: Conversant, Other (anxious/tearful) HEENT: Atraumatic, Normocephaly, Mucus Membranes Moist Cardiac: Reg Rate and Rhythm, Normal S1 and S2 Lungs: Normal Breath Sounds Neuro: Alert and responsive Abdomen: Soft Skin: No rashes noted on visualized skin Musculoskeletal: No Chest Wall Tenderness Extremities: No Edema, Normal Pulses Results 11/18/17 03:59 11/18/17 03:59 Lab Results 11/18/17 11/18/17 03 03:59 03:59 03:59 WBC 7.1 Hgb 10.9 L Hct 31.9 L Plt Count 216 APTT Sodium 141 Potassium 3.2 L Chloride 108 H Carbon Dioxide 26 BUN 12 Creatinine 1.20 Glucose 111 H Calcium 8.3 L Troponin I 0.22 H* 11/18/17 11/18/17 06:28 06:28 WBC Hgb Hct Plt Count APTT 45.0 H D Sodium Potassium Chloride Carbon Dioxide BUN Creatinine Glucose Calcium Troponin I 0.20 H* Active Medications Hydrocodone Bitart/Acetaminophen ([place] 5-325 Mg) 1 tab PO TID PRN PRN Reason: Pain Stop: 05/20/18 01:34 Albuterol Sulfate (Albuterol Inhaler) 2 puff IH [id number] PRN PRN Reason: Shortness Of Breath Stop: 05/20/18 01:32 Alprazolam (Xanax) 1 mg PO TID [facility] Stop: 05/20/18 09:01 Last Admin: 11/18/17 08:40 Dose: 1 mg Aspirin (Aspirin Ec) 81 mg PO DAILY [facility] Stop: 05/20/18 09:01 Last Admin: 11/18/17 08:41 Dose: 81 mg Budesonide/Formoterol Fumarate (Symbicort) 2 puff IH BIDRESP [facility] PRN Reason: Protocol Stop: 05/20/18 10:01 Last Admin: 11/18/17 08:35 Dose: 2 puff Carvedilol (Coreg) 25 mg PO BIDWM [facility] PRN Reason: Protocol Stop: 05/20/18 08:01 Last Admin: 11/18/17 08:41 Dose: 25 mg Clopidogrel Bisulfate (Plavix) 75 mg PO DAILY [facility] Stop: 05/20/18 09:01 Last Admin: 11/18/17 08:41 Dose: 75 mg Fluticasone Propionate (Flonase) 50 mcg NS DAILY [facility] PRN Reason: Protocol Stop: 05/20/18 09:01 Last Admin: 11/18/17 08:41 Dose: 50 mcg Folic Acid (Folic Acid) 1 mg PO DAILY [facility] Stop: 05/20/18 09:01 Last Admin: 11/18/17 08:40 Dose: 1 mg Heparin Sodium (Porcine) (Heparin) 3,300 unit 60 unit/kg (3300 unit) IVP Q6HR PRN PRN Reason: SEE COMMENTS Stop: 05/19/18 23:30 Last Admin: 11/18/17 08:43 Dose: 3,300 unit Heparin Sodium (Porcine) (Heparin) 1,700 unit 30 unit/kg (1700 unit) IVP Q6H PRN PRN Reason: SEE COMMENTS Stop: 05/19/18 23:30 Heparin Sodium/Dextrose (Heparin 25,000 Unit/500 Ml D5w) 25,000 unit in 500 mls @ 13.281 mls/hr IVC .Q24H [facility]; 12 UNIT/KG/HR PRN Reason: Protocol Stop: 05/19/18 23:31 Last Titration: 11/18/17 08:42 Dose: 13.55 unit/kg/hr, 15 mls/hr Sodium Chloride (0.9 % Sodium Chloride) 1,000 mls @ 90 mls/hr IVC .Q11H7M [facility] Stop: 11/18/17 23:28 Last Admin: 11/18/17 01:53 Dose: 90 mls/hr Isosorbide Mononitrate (Imdur) 30 mg PO DAILY [facility] Stop: 05/20/18 09:01 Last Admin: 11/18/17 08:41 Dose: 30 mg Lansoprazole (Prevacid) 30 mg PO HS [facility] PRN Reason: Protocol Stop: 05/20/18 21:01 Metoprolol Tartrate (Lopressor) 2.5 mg IVP Q6HR PRN PRN Reason: Heart Rate- High Stop: 05/20/18 01:23 Naloxone HCl (Narcan) 0.4 mg IVP Q2MIN PRN PRN Reason: SEE COMMENTS Stop: 05/20/18 01:07 Olanzapine (Zyprexa Zydis) 10 mg PO HS [facility] Stop: 05/20/18 21:01 Ropinirole HCl (Requip) 0.25 mg PO HS [facility] Stop: 05/20/18 21:01 Sertraline HCl (Zoloft) 100 mg PO BID [facility] Stop: 05/20/18 09:01 Last Admin: 11/18/17 08:41 Dose: 100 mg Tiotropium Kiron (Spiriva) 18 mcg IH [facility] Stop: 05/20/18 21:01 Topiramate (Topamax) 100 mg PO HS [facility] Stop: 05/20/18 21:01 Topiramate (Topamax) 50 mg PO QAM [facility] Stop: 05/20/18 09:01 Last Admin: 11/18/17 08:40 Dose: 50 mg Trazodone HCl (Trazodone) 300 mg PO HS [facility] Stop: 05/20/18 21:01 - Imaging and Cardiology Stress Test: report reviewed Echo: report reviewed Cardiac cath: report reviewed - EKG Interpretation EKG results cardiology: personally reviewed Consult Discharge Plan - Plan Referrals: Haja Loyd, PAC [Primary Care Provider] - <Fanta Urrutia - Last Filed: 11/18/17 13:06> Date of Encounter: 11/18/17 - Attending Attestation I examined this patient and my medical decision-making was reviewed with the LINE CAMERA OPERATOR. I agree with the documented findings, disposition and treatment plan as described except to the extent set forth below. Ms. Coto presented to the ED with complaints of chest pain. Workup demonstrated elevated troponin and ECG changes consistent with NSTEMI. Patient has known CAD with residual RCA disease by most recent C in 2014. At the bedside, this was discussed with the patient who was crying during the visit, asking to go home and demanding to leave. She also reported that she doesn't take her medicines compliantly, specifically her antiplatelets. Given this information proceeding with [facility] and potential PCI would place the patient at risk for acute in-stent thrombosis. Would recommend medical management unless patient can commit to compliance with medical therapy. Patient has elected to leave against medical advise. Recommend outpatient follow up. Continue antiplatlet agents. Please call back if patient decides to stay or if there are questions. Assessment and Plan Discussion w patient/family: The assessment and plan as outlined above was discussed with the patient and/or family members who expressed understanding and agreement. All questions were answered. Thank you for involving us in the care of your patient. Please call with any questions. History of Present Illness History of present illness: Ms. Coto is a 47 year old female All Systems Review: The remainder of the systems were reviewed and are negative Physical Examination Vital Signs, Last 4 Hours Temp Pulse Resp BP Pulse Ox 11/18/17 11:14 97.8 F 73 18 110/68 95 Results 11/18/17 03:59 11/18/17 03:59 Lab Results 11/18/17 11/18/17 11/18/17 03:59 03:59 03:59 WBC 7.1 Hgb 10.9 L Hct 31.9 L Plt Count 216 APTT Sodium 141 Potassium 3.2 L Chloride 108 H Carbon Dioxide 26 BUN 12 Creatinine 1.20 Glucose 111 H Calcium 8.3 L Troponin I 0.22 H* 11/18/17 11/18/17 06:28 06:28 WBC Hgb Hct Plt Count APTT 45.0 H D Sodium Potassium Chloride Carbon Dioxide BUN Creatinine Glucose Calcium Troponin I 0.20 H*
[2017-11-18] MEDS ORDERED: Budesonide/Formoterol 160/4.5 MDI IH SCH (10:00)
--- NOTE | 2017-11-18 11:07 | Discharge Summary ---
Orders not resulted at time of discharge: Pending orders 11/18/17 14:30 PTT [Activated Partial Thrombo Time] [COAG] Timed Date of Encounter: 11/18/17 Time of Encounter: 11:06 - Discharge Diagnosis (1) Non-ST elevated myocardial infarction Priority: Primary Status: Chronic (2) Bipolar 1 disorder Priority: Secondary Status: Chronic (3) CAD (coronary artery disease) Priority: Secondary Status: Chronic Qualifiers: Coronary Disease-Associated Artery/Lesion type: [place] artery [place] vs. transplanted heart: unspecified whether [place] or transplanted heart Associated angina: angina presence unspecified Qualified Code(s): I25.10 - Atherosclerotic heart disease of [place] coronary artery without angina pectoris (4) COPD (chronic obstructive pulmonary disease) Priority: Secondary Status: Chronic Qualifiers: COPD type: unspecified COPD Qualified Code(s): J44.9 - Chronic obstructive pulmonary disease, unspecified Hospital course: Ms. Coto is a 47 year old female with history of CAD S/P stent, COPD, hypertension, bipolar disorder, presented to ER for chest pain. The patient said the pain started from the morning of admission. The pain located on left chest and radiated to left arm. Pain is intermittent, every episode lasted several minutes. Patient was given nitroglycerin sublingual, which helped to resolve chest pain. In the emergency room, patient was found elevated troponin. Heparin drip was started for NSTEMI. Cardiology were consulted and she was admitted to the hospitalist service. Cardiology came by and saw the patient. The patient was hemodynamically stable however she is Requesting to Be Discharged. Cardiology ideally Would Have Done a Left Heart Catheterization. Cardiology found out that the patient was not compliant with outpatient cardiac meds. They wanted to assure compliance before proceeding with a [facility]. Eventually She Decided to Leave AGAINST MEDICAL ADVICE Stating that she had a "heart attack" in the past for which she left the hospital and ended up having a heart catheterization done s an outpatient. Ideally, she would have been kept hospitalized till final plans are finalized. She left against medical advise on 11/18/2017 - Time Spent with Patient Total time spent providing and/or coordinating discharge services: Greater than 30 minutes - Discharge Medications Home Medications: Albuterol Sulfate [Proair Hfa] 2 puff IH Q6H PRN 10/16/15 [History] Alprazolam [Xanax] 1 mg PO TID 10/16/15 [History] Budesonide/Formoterol 160/4.5 [Symbicort 160/4.5] 2 puff IH BID 10/16/15 [ History] Lansoprazole [Prevacid] 30 mg PO HS 10/16/15 [History] Nitroglycerin [Nitrostat] 0.4 mg SL Q5M PRN 10/16/15 [History] Ropinirole HCl [Requip] 0.25 mg PO HS 10/16/15 [History] Sertraline [Zoloft] 100 mg PO BID 10/16/15 [History] Tiotropium [Spiriva] 18 mcg IH HS 10/16/15 [History] Topiramate [Topamax] 50 mg PO QAM 10/16/15 [History] Topiramate [Topamax] 100 mg PO HS 10/16/15 [History] Trazodone HCl [TraZODone] 300 mg PO HS 10/16/15 [History] Aspirin [Lo-Dose Aspirin EC] 81 mg PO DAILY 09/15/17 [History] Clopidogrel [Plavix] 75 mg PO DAILY 09/15/17 [History] Folic Acid 0.8 mg PO DAILY 09/15/17 [History] Gabapentin [Neurontin] 800 mg PO QID 09/15/17 [History] Fluticasone Propionate Nasal [Flonase] 1 spr NS DAILY 09/29/17 [History] HYDROcodone/Acet 5/325 mg [[place] 5-325 mg] 1 tab PO TID PRN 09/29/17 [History] Isosorbide MONOnitrate (24 HR) [Imdur] 30 mg PO DAILY 09/29/17 [History] Losartan [Cozaar] 25 mg PO DAILY 09/29/17 [History] Tolterodine LA (24 HR) [Detrol LA] 2 mg PO DAILY 09/29/17 [History] Carvedilol [Coreg] 25 mg PO BID 11/17/17 [History] Cyclobenzaprine [Flexeril] 10 mg PO TID 11/17/17 [History] Dicyclomine [Bentyl] 20 mg PO QID 11/17/17 [History] Etodolac 200 mg PO TID 11/17/17 [History] Meclizine HCl [Verticalm] 25 mg PO BID PRN 11/17/17 [History] OLANZapine [Zyprexa] 10 mg PO HS 11/17/17 [History] Allergies/Adverse Reactions: 3 Allergy/AdvReac Type Severity Reaction Status Date / Time codeine Allergy Hives Verified 01/07/17 21:10 ondansetron Allergy Rash Verified 09/29/17 07:50 [From Zofran (as hydrochloride)] propranolol [From Inderal LA] Allergy Hives Verified 01/07/17 21:10 tramadol [From Ultram] Allergy Hives Verified 01/07/17 21:10 ibuprofen AdvReac Nausea Verified 01/07/17 21:10 Date of admission: 11/18/17 01:06 Primary care physician: Haja Loyd - Constitutional Vitals: Temp Pulse Resp BP Pulse Ox 98.2 F 77 16 103/70 99 11/18/17 06:59 11/18/17 06:59 11/18/17 06:59 11/18/17 06:59 11/18/17 06:59 General appearance: Present: A&O X 3, no acute distress, answers questions appropriately Exam: GEN: NAD CVS: RRR. S1, S2, No m/r/g RESP: CTAB ABD: Soft, NT, ND, +BS EXT: No edema. 2+ DP. No rashes NEURO: Nonfocal - Patient Status Disposition: Left Against Medical Advice Condition: Fair - Discharge Instructions Follow Up With: Haja Loyd, PAC [Primary Care Provider] - - Diet and Activity Activity: increase activity as tolerated Diet: low salt diet
[2017-11-18 11:17] VITALS: BP 110/68
[2017-11-18] MEDS ORDERED: ALPRAZolam 1 MG TABLET PO ONE (12:39)
[2017-11-18] MEDS ORDERED: traZODone 50 MG TABLET PO SCH (21:00)
[2017-11-18] MEDS ORDERED: Tiotropium 18 MCG inhalation IH SCH (21:00)
[2017-11-18] MEDS ORDERED: rOPINIRole 0.25 MG TABLET PO SCH (21:00)
[2017-11-18] MEDS ORDERED: Topiramate 100 MG TABLET PO SCH (21:00)
[2017-11-18] MEDS ORDERED: OLANZapine 10 MG TAB.RAPDIS PO SCH (21:00)
--- NOTE | 2017-11-19 15:53 | Electrocardiograph Report ---
[address] [address] Test Date: 2017-11-17 Pat Name: Dottie Coto Department: 102 Room: 2A11 Gender: F Qualification Engineer: Alex : [id number] Requested By: Rm Blakely Order Number: [id number] Reading MD: Fanta Urrutia Measurements Intervals [place] Rate: 114 P: 65 MI: 143 QRS: 40 QRSD: 84 T: 49 QT: 334 QTc: 402 Interpretive Statements SINUS TACHYCARDIA LEFT ATRIAL ENLARGEMENT [-0.15mV P WAVE IN V1/V2] NONSPECIFIC ST & T-WAVE ABNORMALITY Electronically Signed On 11-19-2017 15:52:14 EDT by Fanta Urrutia
== END 2017-11-18 13:12 | disposition left against medical advice (07) | DRG 281 ==
LOC: EMEROO 21:57 → 2ANU 21:57
PROVIDERS: ADMIT Internal Medicine; ATTEND Internal Medicine

== ENCOUNTER 2017-12-02 09:34 | Observation (INO) ==
[2017-12-02] MEDS ORDERED: Naloxone 0.4 MG/ML INJ ONE (09:40)
[2017-12-02] MEDS ORDERED: 0.9 % Sodium Chloride 1,000 ML ONE (09:40)
[2017-12-02] MEDS ORDERED: 0.9 % Sodium Chloride 1,000 ML IVC ONE (09:42)
--- NOTE | 2017-12-02 09:42 | Emergency Department Note ---
Overdose - Medical Records Medical records reviewed: Yes I reviewed the patient's medical records. - Lab Data Lab results reviewed: Yes I reviewed the patient's lab results. Lab results narrative: Laboratory Last Values WBC 6.3 K/mcL (4.3-11.1) 12/02/17 10:53 RBC 4.05 M/mcL (3.82-4.97) 12/02/17 10:53 Hgb 12.0 g/dL (11.5-15.4) 12/02/17 10:53 Hct 35.9 % (35.3-44.9) 12/02/17 10:53 MCV 88.6 fL (83.0-100.0) 12/02/17 10:53 MCH 29.6 pg (28.0-33.3) 12/02/17 10:53 MCHC 33.4 g/dL (31.6-35.5) 12/02/17 10:53 RDW 13.1 % (11.5-14.5) 12/02/17 10:53 Plt Count 203 K/mcL (140-400) 12/02/17 10:53 MPV 9.6 fL (9.4-12.4) 12/02/17 10:53 Immature Gran % 0.3 % (0-4) 12/02/17 10:53 Seg Neutrophils % 55.7 % 12/02/17 10:53 Lymphocytes % 30.2 % 12/02/17 10:53 Monocytes % 11.4 % 12/02/17 10:53 Eosinophils % 1.8 % 12/02/17 10:53 Basophils % 0.6 % 12/02/17 10:53 Neutrophils # 3.5 K/mcL (1.6-8.9) 12/02/17 10:53 Lymphocytes # 1.9 K/mcL (0.6-4.6) 12/02/17 10:53 Monocytes # 0.7 K/mcL (0.0-1.3) 12/02/17 10:53 Eosinophils # 0.1 K/mcL (0.0-0.6) 12/02/17 10:53 Basophils # 0.0 K/mcL (0.0-0.2) 12/02/17 10:53 Nucleated RBCs/100 WBC 0.3 /100 WBC (0) H 12/02/17 10:53 PT 10.6 Seconds (9.4-12.1) 12/02/17 10:53 INR 1.0 12/02/17 10:53 APTT 32.3 Seconds (26.0-36.0) 12/02/17 10:53 Sodium 136 mEq/L (136-145) 12/02/17 10:53 Potassium 4.3 mEq/L (3.5-5.1) 12/02/17 10:53 Chloride 108 mEq/L (98-107) H 12/02/17 10:53 Carbon Dioxide 23 mEq/L (23-29) 12/02/17 10:53 BUN 8 mg/dL (6-20) 12/02/17 10:53 Creatinine 0.92 mg/dL (0.60-1.20) 12/02/17 10:53 Est GFR ( Amer) > 60 (> 60) 12/02/17 10:53 Est GFR (Non-Af Amer) > 60 (> 60) 12/02/17 10:53 BUN/Creatinine Ratio 9 (6-26) 12/02/17 10:53 Glucose 87 mg/dL (70-105) 12/02/17 10:53 Calculated Osmolality 280 (280-300) 12/02/17 10:53 Calcium 9.0 mg/dL (8.6-10.3) 12/02/17 10:53 Total Bilirubin 0.4 mg/dL (0.3-1.0) 12/02/17 10:53 Direct Bilirubin 0.2 mg/dL (0.0-0.2) 12/02/17 10:53 Indirect Bilirubin 0.2 mg/dL (0.0-1.2) 12/02/17 10:53 AST 15 Units/L (13-39) 12/02/17 10:53 ALT 9 Units/L (7-52) 12/02/17 10:53 Alkaline Phosphatase 87 Units/L (34-104) 12/02/17 10:53 Troponin I < 0.03 ng/mL (< 0.04) 12/02/17 10:53 Serum Total Protein 6.0 g/dL (6.4-8.9) L 12/02/17 10:53 Albumin 3.8 g/dL (3.5-5.7) 12/02/17 10:53 Globulin 2.2 g/dL (2.4-3.5) L 12/02/17 10:53 Albumin/Globulin Ratio 1.7 (1.1-2.2) 12/02/17 10:53 Acetaminophen < 10 mcg/mL (10-20) L 12/02/17 10:53 Result diagrams: 12/02/17 10:53 12/02/17 10:53 Lab Results 12/02/17 12/02/17 12/02/17 Range/Units 10:53 10:53 10:53 WBC 6.3 (4.3-11.1) K/mcL RBC 4.05 (3.82-4.97) M/mcL Hgb 12.0 (11.5-15.4) g/dL Hct 35.9 (35.3-44.9) % MCV 88.6 (83.0-100.0) fL MCH 29.6 (28.0-33.3) pg MCHC 33.4 (31.6-35.5) g/dL RDW 13.1 (11.5-14.5) % Plt Count 203 (140-400) K/mcL MPV 9.6 (9.4-12.4) fL Immature Gran % 0.3 (0-4) % Seg Neutrophils % 55.7 % Lymphocytes % 30.2 % Monocytes % 11.4 % Eosinophils % 1.8 % Basophils % 0.6 % Neutrophils # 3.5 (1.6-8.9) K/mcL Lymphocytes # 1.9 (0.6-4.6) K/mcL Monocytes # 0.7 (0.0-1.3) K/mcL Eosinophils # 0.1 (0.0-0.6) K/mcL Basophils # 0.0 (0.0-0.2) K/mcL Nucleated RBCs/100 WBC 0.3 H (0) /100 WBC PT 10.6 (9.4-12.1) Seconds INR 1.0 APTT 32.3 (26.0-36.0) Seconds Sodium 136 (136-145) mEq/L Potassium 4.3 (3.5-5.1) mEq/L Chloride 108 H (98-107) mEq/L Carbon Dioxide 23 (23-29) mEq/L BUN 8 (6-20) mg/dL Creatinine 0.92 (0.60-1.20) mg/dL Est GFR ( Amer) > 60 (> 60) Est GFR (Non-Af Amer) > 60 (> 60) BUN/Creatinine Ratio 9 (6-26) Glucose 87 (70-105) mg/dL Calculated Osmolality 280 (280-300) Calcium 9.0 (8.6-10.3) mg/dL Total Bilirubin 0.4 (0.3-1.0) mg/dL Direct Bilirubin 0.2 (0.0-0.2) mg/dL Indirect Bilirubin 0.2 (0.0-1.2) mg/dL AST 15 (13-39) Units/L ALT 9 (7-52) Units/L Alkaline Phosphatase 87 (34-104) Units/L Troponin I < 0.03 (< 0.04) ng/mL Serum Total Protein 6.0 L (6.4-8.9) g/dL Albumin 3.8 (3.5-5.7) g/dL Globulin 2.2 L (2.4-3.5) g/dL Albumin/Globulin Ratio 1.7 (1.1-2.2) Acetaminophen < 10 L (10-20) mcg/mL - Radiology Data Radiology results reviewed: Yes I reviewed the patient's radiology results. Chest X-Ray 12/02/17 10:25 IMPRESSION: No acute cardiopulmonary process. D/ / 12/02/2017 11:17:38 Francisco Amaro MD / [facility] Interpreting Provider: Francisco Amaro MD Head CT 12/02/17 10:25 IMPRESSION: No acute intracranial abnormality. No intracranial hemorrhage, mass effect, or midline shift. D/ / Guillermo Connelly MD / Guillermo Connelly MD Interpreting Provider: Guillermo Connelly MD - EKG Data EKG attestation: Yes I reviewed and interpreted this EKG. EKG results narrative: EKG reviewed by Dr. Troy as well. EKG shows a sinus rhythm at a rate of 74 bpm. AK interval 144, QRS duration 93, QT/QTc interval 419/446. No ectopy noted. No STEMI. Overdose HPI - General Stated Complaint: unresponsive Time Seen by Provider: 12/02/17 09:36 Source: other Mode of arrival: wheelchair Nursing Notes Reviewed: Yes Vital Signs Reviewed: Yes - History of Present Illness HPI Narrative: 47-year-old female is brought from the [facility] pavilion for evaluation of a suspected overdose. The patient was at the Pavilion for an outpatient MRI when she was noted to have decreased level of responsiveness. The patient was able to tell the automated equipment engineer technician that she "took something" just prior to arrival. According to the automated equipment engineer technician, shortly afterwards, the patient went unresponsive. She was wheeled to the emergency department in a wheelchair. 2 mg of intranasal Narcan was administered upon her arrival to the bed with immediate yet mild improvement. The patient does admit to taking Vicodin prior to arrival as well as Neurontin. 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 Prior to Arrival: none - Related Data Home Medications Medication Instructions Recorded Confirmed Budesonide/Formoterol 160/4.5 2 puff IH BID 10/16/15 12/02/17 [Symbicort 160/4.5] Lansoprazole [Prevacid] 30 mg PO HS 10/16/15 12/02/17 Nitroglycerin [Nitrostat] 0.4 mg SL Q5M PRN 10/16/15 12/02/17 Ropinirole HCl [Requip] 0.25 mg PO HS 10/16/15 12/02/17 Sertraline [Zoloft] 100 mg PO BID 10/16/15 12/02/17 Tiotropium [Spiriva] 18 mcg IH HS 10/16/15 12/02/17 Topiramate [Topamax] 50 mg PO QAM 10/16/15 12/02/17 Topiramate [Topamax] 100 mg PO HS 10/16/15 12/02/17 Trazodone HCl [TraZODone] 300 mg PO HS 10/16/15 12/02/17 Aspirin [Lo-Dose Aspirin EC] 81 mg PO DAILY 09/15/17 12/02/17 Clopidogrel [Plavix] 75 mg PO DAILY 09/15/17 12/02/17 Folic Acid 0.8 mg PO DAILY 09/15/17 12/02/17 Gabapentin [Neurontin] 800 mg PO TID 09/15/17 12/02/17 Isosorbide MONOnitrate (24 HR) 30 mg PO DAILY 09/29/17 12/02/17 [Imdur] Losartan [Cozaar] 25 mg PO DAILY 09/29/17 12/02/17 Carvedilol [Coreg] 25 mg PO BID 11/17/17 12/02/17 OLANZapine [Zyprexa] 20 mg PO HS 11/17/17 12/02/17 Atorvastatin [Lipitor] 40 mg PO HS 11/23/17 12/02/17 Budesonide Neb [Pulmicort Neb] 0.25 mg IH BIDR 11/23/17 12/02/17 Diclofenac Sodium [Voltaren] 50 mg PO Q12H 11/23/17 12/02/17 DiphenhydraMINE [Benadryl] 25 mg PO Q6HR PRN 11/23/17 12/02/17 Etodolac [Lodine] 400 mg PO BID 11/23/17 12/02/17 Methocarbamol [Robaxin] 750 mg PO Q4H 11/23/17 12/02/17 Mometasone Furoate [Nasonex] 2 spray NS DAILY 11/23/17 12/02/17 Albuterol Neb [Proventil Neb] 2.5 mg IH Q4-6H PRN 12/02/17 12/02/17 Cyclobenzaprine [Flexeril] 10 mg PO TID PRN 12/02/17 12/02/17 HYDROcodone/Acet 5/325 mg [[place] 1 tab PO Q6H PRN 12/02/17 12/02/17 5-325 mg] HydrOXYzine Pamoate [Vistaril] 50 mg PO TID 12/02/17 12/02/17 Potassium Gluconate [Potassium] 99 mg PO DAILY 12/02/17 12/02/17 Tolterodine LA (24 HR) [Detrol LA] 2 mg PO DAILY 12/02/17 12/02/17 Allergies Allergy/AdvReac Type Severity Reaction Status Date / Time codeine Allergy Hives Verified 01/07/17 21:10 ondansetron Allergy Rash Verified 09/29/17 07:50 [From Zofran (as hydrochloride)] propranolol [From Inderal LA] Allergy Hives Verified 01/07/17 21:10 tramadol [From Ultram] Allergy Hives Verified 01/07/17 21:10 ibuprofen AdvReac Nausea Verified 01/07/17 21:10 Review of Systems: Unresponsive All systems ED: reviewed and negative except as stated. Constitutional: Denies: fever, chills, weakness, weight change Eyes: Denies: eye pain, eye discharge, vision change ENT ED: Denies: ear pain, throat pain, dental pain, hearing loss, epistaxis, congestion, dysphagia Cardiovascular: Denies: chest pain, palpitations, dyspnea on exertion, edema, syncope Respiratory: Denies: cough, dyspnea, wheezes, hemoptysis, stridor Gastrointestinal: Denies: abdominal pain, nausea, vomiting, diarrhea, constipation, hematemesis, melena, hematochezia Genitourinary: Denies: dysuria, frequency, hematuria, discharge Musculoskeletal: Denies: back pain, neck pain, arthralgia, myalgia Integumentary: Denies: rash, abrasion, lesions Neurological: Denies: headache, weakness, numbness, paresthesias, confusion, abnormal gait, vertigo Psychiatric: Denies: anxiety, depression, suicidal thoughts, homicidal thoughts , auditory hallucinations, visual hallucinations Endocrine: Denies: fatigue Hematological/Lymphatic: Denies: easy bleeding, easy bruising Allergic/Immunologic: Denies: facial swelling, urticaria Past Medical History - Past Medical History Attestation: Yes The following information was validated with the patient. 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 Absent: nystagmus - Expanded Eye Exam Pupils: Bilateral: regular, round, reactive, size (3) - ENT ENT exam: mucous membranes moist - Neck Neck exam: Present: normal inspection, full ROM, trachea midline - Chest Chest inspection: Present: normal inspection, symmetric chest wall rise - Respiratory Respiratory exam: Present: normal lung sounds bilaterally. Absent: respiratory distress, wheezes, stridor, accessory muscle use, prolonged expiratory phase - Cardiovascular Cardiovascular exam: Present: regular rate, normal rhythm, normal heart sounds - Abdominal Exam Abdominal exam: Present: soft, Non-Tender, normal bowel sounds - Extremities Exam Extremities exam: Present: normal inspection, full ROM. Absent: tenderness, pedal edema - Back Exam Back exam: Present: normal inspection, full ROM. Absent: tenderness - Psychiatric Psychiatric exam: Present: normal affect, normal mood - Skin Skin exam: Present: warm, dry, intact, normal color Course Course Narrative: The patient has disclosed to her nurse that in addition to the Vicodin and Neurontin that she took prior to her arrival with the MRI pavilion, but she also ingested an unknown quantity of Klonopin. At this time, it is unclear whether this was recreational or an attempt to inflict self-harm. I have discussed this patient's case with Dr. Troy. Dr. Troy has had a [id number] evaluation with the patient and agrees with admission to the hospital service for further evaluation and observation. I discussed this patient's case with Dr. Martinez, hospitalist on-call, who has accepted the patient for admission to the hospital service for further evaluation and observation. Vital Signs Temperature 97.6 F 12/02/17 09:38 Pulse Rate 74 12/02/17 09:38 Respiratory Rate 14 12/02/17 09:38 Blood Pressure 128/84 12/02/17 09:38 O2 Sat by Pulse Oximetry 97 12/02/17 09:38 Temperature 97.6 F 12/02/17 09:38 Pulse Rate 62 12/02/17 11:32 Respiratory Rate 14 12/02/17 11:32 Blood Pressure 169/103 12/02/17 11:32 O2 Sat by Pulse Oximetry 97 12/02/17 11:32 Oxygen Delivery Oxygen Delivery Room Air Disposition Clinical Impression: Drug overdose Qualifiers: Encounter type: initial encounter Injury intent: undetermined intent Qualified Code(s): T50.904A - Poisoning by unspecified drugs, medicaments and biological substances, undetermined, initial encounter Altered mental status Qualifiers: Altered mental status type: disorientation Qualified Code(s): R41.0 - Disorientation, unspecified Disposition: Admitted As Inpatient Condition: Fair Referrals: Haja Loyd, PAC [Primary Care Provider] - Time of Disposition: 10:39
[2017-12-02 11:10] LABS: Basophils % 0.6 %; Eosinophils # 0.1 K/mcL (0.0-0.6); Eosinophils % 1.8 %; Hematocrit 35.9 % (35.3-44.9); Immature Granulocytes % 0.3 % (0-4); Lymphocytes # 1.9 K/mcL (0.6-4.6); Lymphocytes % 30.2 %; Mean Corpuscular HGB Conc 33.4 g/dL (31.6-35.5); Mean Corpuscular Hemoglobin 29.6 pg (28.0-33.3); Mean Corpuscular Volume 88.6 fL (83.0-100.0); Mean Platelet Volume 9.6 fL (9.4-12.4); Monocytes # 0.7 K/mcL (0.0-1.3); Monocytes % 11.4 %; Neutrophils # 3.5 K/mcL (1.6-8.9); Nucleated Red Blood Cells 0.3 /100 WBC (0); Platelet Count 203 K/mcL (140-400); Red Blood Count 4.05 M/mcL (3.82-4.97); Red Cell Distribution Width 13.1 % (11.5-14.5); Segmented Neutrophils % 55.7 %
[2017-12-02 11:15] LABS: Prothrombin Time 10.6 Seconds (9.4-12.1)
[2017-12-02 11:18] LABS: Activated Partial Thrombo Time 32.3 Seconds (26.0-36.0)
[2017-12-02 11:26] LABS: Troponin I < 0.03 ng/mL (< 0.04)
[2017-12-02 11:27] LABS: Alanine Aminotransferase 9 Units/L (7-52); Albumin 3.8 g/dL (3.5-5.7); Albumin/Globulin Ratio 1.7 (1.1-2.2); Alkaline Phosphatase 87 Units/L (34-104); Aspartate Amino Transferase 15 Units/L (13-39); BUN/Creatinine Ratio 9 (6-26); Bilirubin,Direct 0.2 mg/dL (0.0-0.2); Bilirubin,Indirect 0.2 mg/dL (0.0-1.2); Bilirubin,Total 0.4 mg/dL (0.3-1.0); Blood Urea Nitrogen 8 mg/dL (6-20); Carbon Dioxide 23 mEq/L (23-29); Chloride 108 mEq/L (98-107); Globulin 2.2 g/dL (2.4-3.5); Glucose 87 mg/dL (70-105); Osmolality,Calculated 280 (280-300); Potassium 4.3 mEq/L (3.5-5.1); Sodium 136 mEq/L (136-145); eGFR For African Americans > 60 (> 60); eGFR For Non-African Americans > 60 (> 60)
--- NOTE | 2017-12-02 11:40 | Emergency Department Note ---
Disposition Clinical Impression: Drug overdose Qualifiers: Encounter type: initial encounter Injury intent: undetermined intent Qualified Code(s): T50.904A - Poisoning by unspecified drugs, medicaments and biological substances, undetermined, initial encounter Altered mental status Qualifiers: Altered mental status type: disorientation Qualified Code(s): R41.0 - Disorientation, unspecified Disposition: Admitted As Inpatient Condition: Fair Referrals: Haja Loyd PAC [Primary Care Provider] - General Adult HPI - General Chief complaint: ED Overdose Stated complaint: unresponsive Time Seen by Provider: 12/02/17 09:36 Source: other Mode of arrival: wheelchair Limitations: no limitations - History of Present Illness Pain Scale: 0 - Related Data Home Medications Medication Instructions Recorded Confirmed Budesonide/Formoterol 160/4.5 2 puff IH BID 10/16/15 12/02/17 [Symbicort 160/4.5] Lansoprazole [Prevacid] 30 mg PO HS 10/16/15 12/02/17 Nitroglycerin [Nitrostat] 0.4 mg SL Q5M PRN 10/16/15 12/02/17 Ropinirole HCl [Requip] 0.25 mg PO HS 10/16/15 12/02/17 Sertraline [Zoloft] 100 mg PO BID 10/16/15 12/02/17 Tiotropium [Spiriva] 18 mcg IH HS 10/16/15 12/02/17 Topiramate [Topamax] 50 mg PO QAM 10/16/15 12/02/17 Topiramate [Topamax] 100 mg PO HS 10/16/15 12/02/17 Trazodone HCl [TraZODone] 300 mg PO HS 10/16/15 12/02/17 Aspirin [Lo-Dose Aspirin EC] 81 mg PO DAILY 09/15/17 12/02/17 Clopidogrel [Plavix] 75 mg PO DAILY 09/15/17 12/02/17 Folic Acid 0.8 mg PO DAILY 09/15/17 12/02/17 Gabapentin [Neurontin] 800 mg PO TID 09/15/17 12/02/17 Isosorbide MONOnitrate (24 HR) 30 mg PO DAILY 09/29/17 12/02/17 [Imdur] Losartan [Cozaar] 25 mg PO DAILY 09/29/17 12/02/17 Carvedilol [Coreg] 25 mg PO BID 11/17/17 12/02/17 OLANZapine [Zyprexa] 20 mg PO HS 11/17/17 12/02/17 Atorvastatin [Lipitor] 40 mg PO HS 11/23/17 12/02/17 Budesonide Neb [Pulmicort Neb] 0.25 mg IH BIDR 11/23/17 12/02/17 Diclofenac Sodium [Voltaren] 50 mg PO Q12H 11/23/17 12/02/17 DiphenhydraMINE [Benadryl] 25 mg PO Q6HR PRN 11/23/17 12/02/17 Etodolac [Lodine] 400 mg PO BID 11/23/17 12/02/17 Methocarbamol [Robaxin] 750 mg PO Q4H 11/23/17 12/02/17 Mometasone Furoate [Nasonex] 2 spray NS DAILY 11/23/17 12/02/17 Albuterol Neb [Proventil Neb] 2.5 mg IH Q4-6H PRN 12/02/17 12/02/17 Cyclobenzaprine [Flexeril] 10 mg PO TID PRN 12/02/17 12/02/17 HYDROcodone/Acet 5/325 mg [[place] 1 tab PO Q6H PRN 12/02/17 12/02/17 5-325 mg] HydrOXYzine Pamoate [Vistaril] 50 mg PO TID 12/02/17 12/02/17 Potassium Gluconate [Potassium] 99 mg PO DAILY 12/02/17 12/02/17 Tolterodine LA (24 HR) [Detrol LA] 2 mg PO DAILY 12/02/17 12/02/17 Allergies Allergy/AdvReac Type Severity Reaction Status Date / Time codeine Allergy Hives Verified 01/07/17 21:10 ondansetron Allergy Rash Verified 09/29/17 07:50 [From Zofran (as hydrochloride)] propranolol [From Inderal LA] Allergy Hives Verified 01/07/17 21:10 tramadol [From Ultram] Allergy Hives Verified 01/07/17 21:10 ibuprofen AdvReac Nausea Verified 01/07/17 21:10 Constitutional: Denies: fever, chills, weakness, weight change Eyes: Denies: eye pain, eye discharge, vision change ENT ED: Denies: ear pain, throat pain, dental pain, hearing loss, epistaxis, congestion, dysphagia Cardiovascular: Denies: chest pain, palpitations, dyspnea on exertion, edema, syncope Respiratory: Denies: cough, dyspnea, wheezes, hemoptysis, stridor Gastrointestinal: Denies: abdominal pain, nausea, vomiting, diarrhea, constipation, hematemesis, melena, hematochezia Genitourinary: Denies: dysuria, frequency, hematuria, discharge Musculoskeletal: Denies: back pain, neck pain, arthralgia, myalgia Integumentary: Denies: rash, abrasion, lesions Neurological: Denies: headache, weakness, numbness, paresthesias, confusion, abnormal gait, vertigo Psychiatric: Denies: anxiety, depression, suicidal thoughts, homicidal thoughts , auditory hallucinations, visual hallucinations Endocrine: Denies: fatigue Hematological/Lymphatic: Denies: easy bleeding, easy bruising Allergic/Immunologic: Denies: facial swelling, urticaria Past Medical History - Past Medical History Medical history: Reports: COPD, coronary artery disease, CVA, GERD, hypertension , myocardial infarction Surgical history: Reports: angioplasty/stent, cholecystectomy, herniorrhaphy, hysterectomy, orthopedic, other Psychiatric history: Reports: anxiety, bipolar, depression, panic disorder, PTSD , prior suicide attempt 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 - Social History Smoking Status: Current every day smoker Smokeless Tobacco Status: No Alcohol use: Reports: rarely Drug use: Reports: marijuana Physical Exam - General Limitations: no limitations General appearance: in no apparent distress, appears intoxicated, obtunded Course Vital Signs Temperature 97.6 F 12/02/17 09:38 Pulse Rate 74 12/02/17 09:38 Respiratory Rate 14 12/02/17 09:38 Blood Pressure 128/84 12/02/17 09:38 O2 Sat by Pulse Oximetry 97 12/02/17 09:38 Temperature 97.6 F 12/02/17 09:38 Pulse Rate 62 12/02/17 11:32 Respiratory Rate 14 12/02/17 11:32 Blood Pressure 169/103 12/02/17 11:32 O2 Sat by Pulse Oximetry 97 12/02/17 11:32 Oxygen Delivery Oxygen Delivery Room Air Medical Decision Making - Lab Data Result diagrams: 12/02/17 10:53 12/02/17 10:53 Lab Results 12/02/17 12/02/17 12/02/17 Range/Units 10:53 10:53 10:53 WBC 6.3 (4.3-11.1) K/mcL RBC 4.05 (3.82-4.97) M/mcL Hgb 12.0 (11.5-15.4) g/dL Hct 35.9 (35.3-44.9) % MCV 88.6 (83.0-100.0) fL MCH 29.6 (28.0-33.3) pg MCHC 33.4 (31.6-35.5) g/dL RDW 13.1 (11.5-14.5) % Plt Count 203 (140-400) K/mcL MPV 9.6 (9.4-12.4) fL Immature Gran % 0.3 (0-4) % Seg Neutrophils % 55.7 % Lymphocytes % 30.2 % Monocytes % 11.4 % Eosinophils % 1.8 % Basophils % 0.6 % Neutrophils # 3.5 (1.6-8.9) K/mcL Lymphocytes # 1.9 (0.6-4.6) K/mcL Monocytes # 0.7 (0.0-1.3) K/mcL Eosinophils # 0.1 (0.0-0.6) K/mcL Basophils # 0.0 (0.0-0.2) K/mcL Nucleated RBCs/100 WBC 0.3 H (0) /100 WBC PT 10.6 (9.4-12.1) Seconds INR 1.0 APTT 32.3 (26.0-36.0) Seconds Sodium 136 (136-145) mEq/L Potassium 4.3 (3.5-5.1) mEq/L Chloride 108 H (98-107) mEq/L Carbon Dioxide 23 (23-29) mEq/L BUN 8 (6-20) mg/dL Creatinine 0.92 (0.60-1.20) mg/dL Est GFR ( Amer) > 60 (> 60) Est GFR (Non-Af Amer) > 60 (> 60) BUN/Creatinine Ratio 9 (6-26) Glucose 87 (70-105) mg/dL Calculated Osmolality 280 (280-300) Calcium 9.0 (8.6-10.3) mg/dL Total Bilirubin 0.4 (0.3-1.0) mg/dL Direct Bilirubin 0.2 (0.0-0.2) mg/dL Indirect Bilirubin 0.2 (0.0-1.2) mg/dL AST 15 (13-39) Units/L ALT 9 (7-52) Units/L Alkaline Phosphatase 87 (34-104) Units/L Troponin I < 0.03 (< 0.04) ng/mL Serum Total Protein 6.0 L (6.4-8.9) g/dL Albumin 3.8 (3.5-5.7) g/dL Globulin 2.2 L (2.4-3.5) g/dL Albumin/Globulin Ratio 1.7 (1.1-2.2) Critical Care Time Critical Care Time: Yes Total Critical Care Time: 35 Attestation: Critical care performed: Time is exclusive of separately billable procedures. Time includes: direct patient care, patient reassessment, coordination of patient care, interpretation of data (laboratory data, radiology data, and respiratory data), review of patient's medical records, medical consultation and documentation of patient care. Procedures included in critical care time: Procedures excluded from critical care time: Attestation Statement - Attestation Attestation: I have personally performed a face to face evaluation on this patient. I have reviewed and agree with the care plan. History and Exam by me shows: Patient presents to the emergency Department with altered mental status. Patient was seen in bed in [facility] and sent for an MRI. it desktop support technician states that she went unresponsive during her chest. She was more awake and alert after some Narcan. Patient admitted to taking the Vicodin. She is now admitting to taken some Klonopin as well. On examination she was awake and drowsy. Moving all extremities. Lungs clear. Vital stable. Plan. Patient continues to be drowsy. She is now maintaining his Klonopin. Aspirin and acetaminophen levels. Patient will be admitted.
[2017-12-02 12:31] LABS: Acetaminophen < 10 mcg/mL (10-20)
[2017-12-02 12:34] LABS: Salicylate < 2.5 mg/dL (15.0-30.0)
[2017-12-02 12:37] LABS: Bilirubin,Urine Small (Negative); Blood,Urine Negative (Negative); Clarity,Urine Clear (Clear); Color,Urine Dark Yellow (Yellow); Glucose,Urine (UA) Normal (Normal); Ketones,Urine Negative (Negative); Leukocyte Esterase,Urine Small (Negative); Nitrite,Urine Negative (Negative); PH,Urine 6.5 pH Units (5.0-8.0); Protein,Urine Negative (Neg-Trace); Specific Gravity,Urine 1.019 (1.010-1.025); Urobilinogen,Urine Normal (Normal)
[2017-12-02 12:39] LABS: Bacteria,Urine None Seen per hpf (None-Few); Squamous Epithelial Cell,Urine Many per lpf (None-Few)
[2017-12-02 12:46] LABS: Amphetamine Screen,Urine Negative ng/mL (Cutoff=1000); Barbiturate Screen,Urine Negative ng/mL (Cutoff=200); Benzodiazepines Screen,Urine Positive ng/mL (Cutoff=200); Cannabinoid Screen,Urine Positive ng/mL (Cutoff = 50); Cocaine Screen,Urine Negative ng/mL (Cutoff= 300); Opiate Screen,Urine Positive ng/mL (Cutoff=300); Phencyclidine Screen,Urine Negative ng/mL (Cutoff=25)
[2017-12-02 12:53] LABS: Hyaline Casts,Urine Many per lpf (None-Few); RBC,Urine 0-3 per hpf (0-3)
[2017-12-02 13:27] LABS: Ethanol 10 mg/dL (Less than 10)
[2017-12-02] MEDS ORDERED: Naloxone 0.4 MG/ML INJ IVP PRN (14:15)
--- NOTE | 2017-12-02 14:28 | Internal Med History&Physical ---
Date of Encounter: 12/02/17 Time of Encounter: 14:22 Internal Medicine - H&P: HPI Chief complaint: Altered mental status Admitted From: Emergency Dept Plans for Post Hospital Care: Home History of present illness: Ms. Coto is a 47 year old female was about an medical history of COPD, coronary artery disease, old CVA, hypertension, GERD. Patient also has a anxiety, bipolar disorder, depression, panic disorder, prior suicide attempt. The patient was brought to the emergency department from the [facility]. According to the patient what she told the emergency room: I was scared to go through that tube so I consumed some extra tablets of my nerve pills. Patient was in altered mental status. Workup in the emergency room: Patient was evaluated in the emergency room. 2 mg of intranasal Narcan was administered upon arrival. There was a mild improvement after the administration of Narcan. Patient upon transfer and response accepted that she took Vicodin prior to arrival along with Neurontin. CT head was done which was negative. The basic labs were drawn. Urine toxicology: Salicylates: Less than 2.5, acetaminophen: Less than 10, urine toxicology is positive for opioids and benzodiazepines and marijuana. Urine toxicology is negative for barbiturates, phencyclidine, amphetamine and cocaine. EKG: QRS: 93, corrected QT interval 446. Reason for admission: Drug overdose at this point we are not sure whether it is a intentional or accidental. Past Med Surg Social Fam HX - Past Medical History Medical history: COPD, coronary artery disease, CVA, GERD, hypertension, myocardial infarction Psychiatric history: anxiety, bipolar, depression, panic disorder, PTSD, prior suicide attempt - Past Surgical History Surgical History: angioplasty/stent, cholecystectomy, herniorrhaphy, hysterectomy, orthopedic, other - Social History Smoking Status: Current every day smoker Smokeless Tobacco Status: No Alcohol use: rarely Drug use: marijuana - Family History Mother Living Status: Hx Family Cancer: Yes Father Living Status: Hx Family Cardiac Disorders: Yes (ME) Internal Medicine - H&P: Meds Budesonide/Formoterol 160/4.5 [Symbicort 160/4.5] 2 puff IH BID 10/16/15 [ History] Lansoprazole [Prevacid] 30 mg PO HS 10/16/15 [History] Nitroglycerin [Nitrostat] 0.4 mg SL Q5M PRN 10/16/15 [History] Ropinirole HCl [Requip] 0.25 mg PO HS 10/16/15 [History] Sertraline [Zoloft] 100 mg PO BID 10/16/15 [History] Tiotropium [Spiriva] 18 mcg IH HS 10/16/15 [History] Topiramate [Topamax] 50 mg PO QAM 10/16/15 [History] Topiramate [Topamax] 100 mg PO HS 10/16/15 [History] Trazodone HCl [TraZODone] 300 mg PO HS 10/16/15 [History] Aspirin [Lo-Dose Aspirin EC] 81 mg PO DAILY 09/15/17 [History] Clopidogrel [Plavix] 75 mg PO DAILY 09/15/17 [History] Folic Acid 0.8 mg PO DAILY 09/15/17 [History] Gabapentin [Neurontin] 800 mg PO TID 09/15/17 [History] Isosorbide MONOnitrate (24 HR) [Imdur] 30 mg PO DAILY 09/29/17 [History] Losartan [Cozaar] 25 mg PO DAILY 09/29/17 [History] Carvedilol [Coreg] 25 mg PO BID 11/17/17 [History] OLANZapine [Zyprexa] 20 mg PO HS 11/17/17 [History] Atorvastatin [Lipitor] 40 mg PO HS 11/23/17 [History] Budesonide Neb [Pulmicort Neb] 0.25 mg IH BIDR 11/23/17 [History] Diclofenac Sodium [Voltaren] 50 mg PO Q12H 11/23/17 [History] DiphenhydraMINE [Benadryl] 25 mg PO Q6HR PRN 11/23/17 [History] Etodolac [Lodine] 400 mg PO BID 11/23/17 [History] Methocarbamol [Robaxin] 750 mg PO Q4H 11/23/17 [History] Mometasone Furoate [Nasonex] 2 spray NS DAILY 11/23/17 [History] Albuterol Neb [Proventil Neb] 2.5 mg IH Q4-6H PRN 12/02/17 [History] Cyclobenzaprine [Flexeril] 10 mg PO TID PRN 12/02/17 [History] HYDROcodone/Acet 5/325 mg [Bee 5-325 mg] 1 tab PO Q6H PRN 12/02/17 [History] HydrOXYzine Pamoate [Vistaril] 50 mg PO TID 12/02/17 [History] Potassium Gluconate [Potassium] 99 mg PO DAILY 12/02/17 [History] Tolterodine LA (24 HR) [Detrol LA] 2 mg PO DAILY 12/02/17 [History] 3 Allergy/AdvReac Type Severity Reaction Status Date / Time codeine Allergy Hives Verified 01/07/17 21:10 ondansetron Allergy Rash Verified 09/29/17 07:50 [From Zofran (as hydrochloride)] propranolol [From Inderal LA] Allergy Hives Verified 01/07/17 21:10 tramadol [From Ultram] Allergy Hives Verified 01/07/17 21:10 ibuprofen AdvReac Nausea Verified 01/07/17 21:10 ROS unobtainable: due to mental status All Systems PM: A 10-system review of systems was performed and is negative for pertinent findings except as documented above in the HPI. - Constitutional Vitals: Temp Pulse Resp BP Pulse Ox 98.0 F 68 14 172/93 99 12/02/17 13:32 12/02/17 13:32 12/02/17 13:32 12/02/17 13:32 12/02/17 13:32 General appearance: Present: A&O X 2, mild distress, pleasant - Head Head exam: Present: atraumatic, normocephalic - Eye Eye exam: Present: PERRL, conjuntiva pink, sclera anicteric Pupils: Present: PERRL - Neck Neck exam general surgery: Present: supple, trachea midline. Absent: lymphadenopathy - Respiratory Respiratory exam: Present: CTAB. Absent: accessory muscle use, rales, rhonchi, wheezes - Cardiovascular Cardiovascular exam: Present: RRR, +S1, +S2. Absent: diastolic murmur, gallop, rubs, systolic murmur - GI/Abdominal GI/Abdominal exam: Present: normal bowel sounds, soft, no peritoneal signs. Absent: distended, tenderness - Extremities Exam Extremities exam: Present: warm, radial pulses palpable and symmetrical. Absent : calf tenderness, cyanotic, pedal edema - Neurological Exam Neurological exam: Present: CN II-XII intact, oriented X3, no focal deficits. Absent: pronater drift, facial droop, speech deficit - Skin Skin exam: Present: dry, intact Internal Med - H&P Results - Labs CBC & Chem 7: 12/02/17 10:53 12/02/17 10:53 - Assessment and plan (1) Drug overdose Current Visit: Yes Status: Acute Assessment and plan: 47-year-old female known to have multiple medical issues, came with drug overdose from [facility]. Please see above for the details regarding the urine toxicology report. I called poison control center by myself. I spoke with Mrs. Alvarenga. Her recommendation is to manage this patient conservatively/symptomatic/ supportive treatment. Plan: Admit as observation. IV fluids: 70 mL normal saline per hour. Nothing by mouth for now. Resume home medications. Hold pain medications/anxiolytic/narcotics. Restart psych medication. Psychiatry evaluation: Possible suicidal ideation/symptomatic drug overdose. I examined this patient in the emergency room #11. Along with me patient's battery charger conveyor line was there. Patient has altered mental status hence unable to explain the diagnosis to her. Qualifiers: Encounter type: initial encounter Injury intent: undetermined intent Qualified Code(s): T50.904A - Poisoning by unspecified drugs, medicaments and biological substances, undetermined, initial encounter (2) Altered mental status Current Visit: Yes Status: Acute Assessment and plan: see above Qualifiers: Altered mental status type: disorientation Qualified Code(s): R41.0 - Disorientation, unspecified (3) COPD (chronic obstructive pulmonary disease) Current Visit: No Status: Chronic Assessment and plan: Stable at this point. We will continue present treatment. Qualifiers: COPD type: unspecified COPD Qualified Code(s): J44.9 - Chronic obstructive pulmonary disease, unspecified (4) CAD (coronary artery disease) Current Visit: No Status: Chronic Assessment and plan: Patient is known to our coronary artery disease. At this point patient denies any chest pain. We will continue the same management. Qualifiers: Coronary Disease-Associated Artery/Lesion type: [place] artery [place] vs. transplanted heart: unspecified whether [place] or transplanted heart Associated angina: angina presence unspecified Qualified Code(s): I25.10 - Atherosclerotic heart disease of [place] coronary artery without angina pectoris (5) DVT prophylaxis Current Visit: No Status: Acute Assessment and plan: scd Medical decision making: This patient has a moderate to severe risk of worsening in spite of being on appropriate medication due to the underlying chronic comorbid conditions. - Time Spent With Patient Total time spent is greater than 50% in coordination of care (as documented) at patient's floor/unit and/or counseling patient:
[2017-12-02] MEDS: 0.9 % Sodium Chloride 1,000 ML IVC SCH (15:04)
[2017-12-02] MEDS ORDERED: Albuterol 2.5 MG/3 ML NEBULIZER IH PRN (16:00)
[2017-12-02] MEDS: Budesonide/Formoterol 160/4.5 MDI IH SCH (20:50)
[2017-12-02] MEDS ORDERED: Topiramate 100 MG TABLET PO SCH (21:00)
[2017-12-02] MEDS ORDERED: rOPINIRole 0.25 MG TABLET PO SCH (21:00)
[2017-12-02] MEDS ORDERED: OLANZapine 10 MG TAB.RAPDIS PO SCH (21:00)
[2017-12-02] MEDS ORDERED: Tiotropium 18 MCG inhalation IH SCH (21:00)
[2017-12-02] MEDS ORDERED: traZODone 50 MG TABLET PO SCH (21:00)
[2017-12-03 04:55] LABS: Basophils # 0.1 K/mcL (0.0-0.2); Basophils % 0.9 %; Eosinophils # 0.1 K/mcL (0.0-0.6); Eosinophils % 1.8 %; Hematocrit 33.7 % (35.3-44.9); Hemoglobin 11.3 g/dL (11.5-15.4); Immature Granulocytes % 0.5 % (0-4); Lymphocytes % 35.4 %; Mean Corpuscular HGB Conc 33.5 g/dL (31.6-35.5); Mean Corpuscular Hemoglobin 29.4 pg (28.0-33.3); Mean Corpuscular Volume 87.5 fL (83.0-100.0); Mean Platelet Volume 10.2 fL (9.4-12.4); Monocytes # 0.5 K/mcL (0.0-1.3); Monocytes % 8.7 %; Neutrophils # 2.9 K/mcL (1.6-8.9); Platelet Count 226 K/mcL (140-400); Red Blood Count 3.85 M/mcL (3.82-4.97); Red Cell Distribution Width 13.2 % (11.5-14.5); Segmented Neutrophils % 52.7 %
[2017-12-03 05:00] LABS: Prothrombin Time 11.2 Seconds (9.4-12.1)
[2017-12-03 05:02] LABS: Activated Partial Thrombo Time 30.3 Seconds (26.0-36.0)
[2017-12-03 05:20] LABS: Alanine Aminotransferase 7 Units/L (7-52); Albumin 3.3 g/dL (3.5-5.7); Albumin/Globulin Ratio 1.7 (1.1-2.2); Alkaline Phosphatase 77 Units/L (34-104); Aspartate Amino Transferase 12 Units/L (13-39); BUN/Creatinine Ratio 12 (6-26); Bilirubin,Total 0.3 mg/dL (0.3-1.0); Blood Urea Nitrogen 10 mg/dL (6-20); Calcium 8.5 mg/dL (8.6-10.3); Carbon Dioxide 22 mEq/L (23-29); Chloride 113 mEq/L (98-107); Glucose 107 mg/dL (70-105); Osmolality,Calculated 290 (280-300); Phosphorous 4.1 mg/dL (2.7-4.5); Sodium 140 mEq/L (136-145); Total Protein 5.3 g/dL (6.4-8.9); eGFR For African Americans > 60 (> 60); eGFR For Non-African Americans > 60 (> 60)
[2017-12-03] MEDS: 0.9 % Sodium Chloride 1,000 ML IVC SCH (06:11)
--- NOTE | 2017-12-03 07:14 | Electrocardiograph Report ---
[place] [facility] Test Date: 2017-12-02 Pat Name: Dottie Coto Department: 103 Room: 3B36 Gender: F Asset Manager: [facility] : 1970 Requested By: Landen Bolton Order Number: [id number] Reading MD: Melanie Bhatti Measurements Intervals [place] Rate: 74 P: 57 DC: 144 QRS: 66 QRSD: 93 T: 71 QT: 419 QTc: 446 Interpretive Statements SINUS RHYTHM Electronically Signed On 12-03-2017 7:12:39 EDT by Melanie Bhatti
[2017-12-03] MEDS: Budesonide/Formoterol 160/4.5 MDI IH SCH (08:51)
[2017-12-03] MEDS ORDERED: FOLIC ACID 0.8 MG PO SCH (09:00)
[2017-12-03] MEDS ORDERED: Aspirin Enteric Coated 81 MG Tablet PO SCH (09:00)
[2017-12-03] MEDS ORDERED: (Potassium Gluconate [Potassium] 99 MG) PO SCH (09:00)
[2017-12-03] MEDS ORDERED: Topiramate 25 MG TABLET PO SCH (09:00)
[2017-12-03] MEDS ORDERED: Isosorbide MONOnitrate (24 HR) 30 MG TAB.ER.24H PO SCH (09:00)
[2017-12-03 10:48] VITALS: BP 131/80
--- NOTE | 2017-12-03 17:39 | Event Note ---
Date of Encounter: 12/03/17 Time of Encounter: 11:30 I was notified by nursing at approximately 11:30 a.m. that pt was leaving AMA because her son was coming. I did not get to see pt before she left the unit.
== END 2017-12-03 11:05 | disposition left against medical advice (07) ==
LOC: 3BNU 09:34 → EMEROO 09:34 → 3BNU 13:15
PROVIDERS: ADMIT Internal Medicine; ATTEND Registered Nurse

== ENCOUNTER 2019-06-05 20:24 | Observation (INO) ==
[2019-06-05] MEDS ORDERED: 0.9 % Sodium Chloride 1,000 ML IVC ONE (20:44)
[2019-06-05 21:03] LABS: Basophils # 0.1 K/mcL (0.0-0.2); Basophils % 0.6 %; Eosinophils # 0.2 K/mcL (0.0-0.6); Eosinophils % 1.6 %; Hematocrit 36.8 % (35.3-44.9); Hemoglobin 12.1 g/dL (11.5-15.4); Immature Granulocytes % 0.4 % (0-4); Lymphocytes # 3.4 K/mcL (0.6-4.6); Lymphocytes % 31.1 %; Mean Corpuscular HGB Conc 32.9 g/dL (31.6-35.5); Mean Corpuscular Hemoglobin 29.4 pg (28.0-33.3); Mean Corpuscular Volume 89.3 fL (83.0-100.0); Mean Platelet Volume 9.7 fL (9.4-12.4); Monocytes % 8.7 %; Neutrophils # 6.3 K/mcL (1.6-8.9); Platelet Count 235 K/mcL (140-400); Red Blood Count 4.12 M/mcL (3.82-4.97); Red Cell Distribution Width 13.7 % (11.5-14.5); Segmented Neutrophils % 57.6 %; White Blood Count 10.9 K/mcL (4.3-11.1)
[2019-06-05 21:11] LABS: INR 0.9; Prothrombin Time 10.6 Seconds (9.4-12.1)
[2019-06-05 21:13] LABS: Activated Partial Thrombo Time 31.7 Seconds (26.0-36.0)
[2019-06-05 21:24] LABS: BUN/Creatinine Ratio 16 (6-26); Blood Urea Nitrogen 17 mg/dL (6-20); Carbon Dioxide 26 mEq/L (23-29); Chloride 111 mEq/L (98-107); Potassium 3.4 mEq/L (3.5-5.1); Sodium 143 mEq/L (136-145); eGFR For African Americans > 60 (> 60)
[2019-06-05 21:25] LABS: Calcium 8.9 mg/dL (8.6-10.3); Glucose 87 mg/dL (70-105); Osmolality,Calculated 297 (280-300); Troponin I < 0.03 ng/mL (< 0.04); eGFR For Non-African Americans 56 (> 60)
[2019-06-05 21:36] LABS: Bilirubin,Urine Negative (Negative); Blood,Urine Negative (Negative); Clarity,Urine Clear (Clear); Color,Urine Yellow (Yellow); Glucose,Urine (UA) Normal (Normal); Ketones,Urine Negative (Negative); Leukocyte Esterase,Urine Trace (Negative); Nitrite,Urine Negative (Negative); PH,Urine 6.5 pH Units (5.0-8.0); Protein,Urine Negative (Neg-Trace); Specific Gravity,Urine 1.014 (1.010-1.025); Urobilinogen,Urine Normal (Normal)
[2019-06-05 21:38] LABS: Bacteria,Urine None Seen per hpf (None-Few); Hyaline Casts,Urine None Seen per lpf (None-Few); Squamous Epithelial Cell,Urine Many per lpf (None-Few); WBC,Urine 0-3 per hpf (0-3)
[2019-06-05] MEDS ORDERED: Isovue-370 500 ML BOTTLE IVP ONE (22:08)
[2019-06-06] MEDS ORDERED: methylPREDNISolone 125 MG/2 ML VIAL ONE (01:34)
[2019-06-06] MEDS: methylPREDNISolone 125 MG/2 ML VIAL IVP ONE ×2 (01:37→01:38)
[2019-06-06] MEDS ORDERED: Nitroglycerin 0.4 MG TAB.SUBL SL PRN (06:11)
[2019-06-06] MEDS ORDERED: Naloxone 0.4 MG/ML INJ IVP PRN (06:20)
[2019-06-06 07:00] LABS: Basophils % 0.5 %; Eosinophils % 0.2 %; Hematocrit 37.9 % (35.3-44.9); Hemoglobin 12.5 g/dL (11.5-15.4); Immature Granulocytes % 1.9 % (0-4); Lymphocytes # 0.8 K/mcL (0.6-4.6); Lymphocytes % 13.4 %; Mean Corpuscular Hemoglobin 29.5 pg (28.0-33.3); Mean Corpuscular Volume 89.4 fL (83.0-100.0); Monocytes # 0.1 K/mcL (0.0-1.3); Monocytes % 1.5 %; Neutrophils # 4.9 K/mcL (1.6-8.9); Platelet Count 218 K/mcL (140-400); Red Blood Count 4.24 M/mcL (3.82-4.97); Red Cell Distribution Width 13.8 % (11.5-14.5); Segmented Neutrophils % 82.5 %; White Blood Count 5.9 K/mcL (4.3-11.1)
[2019-06-06 07:05] LABS: Prothrombin Time 11.3 Seconds (9.4-12.1)
[2019-06-06 07:17] LABS: % Iron Saturation 14 % (15-50); Alanine Aminotransferase 54 Units/L (7-52); Albumin 4.1 g/dL (3.5-5.7); Albumin/Globulin Ratio 1.5 (1.1-2.2); Alkaline Phosphatase 90 Units/L (34-104); Aspartate Amino Transferase 64 Units/L (13-39); BUN/Creatinine Ratio 18 (6-26); Bilirubin,Total 0.6 mg/dL (0.3-1.0); Blood Urea Nitrogen 15 mg/dL (6-20); Calcium 9.1 mg/dL (8.6-10.3); Carbon Dioxide 22 mEq/L (23-29); Chloride 112 mEq/L (98-107); Globulin 2.7 g/dL (2.4-3.5); Glucose 107 mg/dL (70-105); Iron 56 mcg/dL (50-170); Magnesium 1.9 mg/dL (1.6-2.6); Osmolality,Calculated 295 (280-300); Phosphorous 2.7 mg/dL (2.7-4.5); Potassium 3.4 mEq/L (3.5-5.1); Sodium 142 mEq/L (136-145); Total Protein 6.8 g/dL (6.4-8.9); Transferrin 288 mg/dL (203-362); eGFR For African Americans > 60 (> 60); eGFR For Non-African Americans > 60 (> 60)
[2019-06-06 07:29] LABS: Thyroid Stimulating Hormone 1.332 mcIU/mL (0.340-5.600)
[2019-06-06 07:31] LABS: Triiodothyronine (T3) Free 3.23 pg/mL (2.50-3.90)
[2019-06-06] MEDS ORDERED: Regadenoson 0.4 MG/5 ML SYRINGE IVP ONE (07:34)
[2019-06-06 09:33] LABS: Estimated Average Glucose 117 mg/dl
[2019-06-06] MEDS ORDERED: Albuterol 2.5 MG/3 ML NEBULIZER IH PRN (10:00)
[2019-06-06] MEDS: Gabapentin 400 MG CAPSULE PO SCH ×3 (10:18→21:55)
[2019-06-06] MEDS: Topiramate 25 MG TABLET PO SCH (10:18)
[2019-06-06] MEDS: Aspirin Enteric Coated 81 MG Tablet PO SCH (10:18)
[2019-06-06] MEDS: cloNIDine HCl 0.1 MG TABLET PO SCH (10:18)
[2019-06-06] MEDS: Cholecalciferol (D-3) 1,000 UNIT (25MCG) TABLET PO SCH (10:18)
[2019-06-06] MEDS: Levothyroxine 25 MCG TABLET PO SCH (10:20)
[2019-06-06] MEDS: Budesonide Neb 0.25 MG/2 ML IH SCH ×2 (10:56→20:28)
[2019-06-06] MEDS ORDERED: 0.9 % Sodium Chloride 500 ML IVC ONE (14:01)
[2019-06-06] MEDS ORDERED: 0.9 % Sodium Chloride 500 ML ONE (14:23)
[2019-06-06] MEDS ORDERED: rOPINIRole 0.25 MG TABLET PO SCH (21:00)
[2019-06-06] MEDS ORDERED: Topiramate 100 MG TABLET PO SCH (21:00)
[2019-06-06] MEDS ORDERED: traZODone 50 MG TABLET PO SCH (21:00)
[2019-06-06] MEDS ORDERED: OLANZapine 10 MG TAB.RAPDIS PO SCH (21:00)
[2019-06-06] MEDS ORDERED: OLANZAPINE 20 MG PO SCH (21:00)
[2019-06-06] MEDS ORDERED: Tiotropium 18 MCG inhalation IH SCH (21:00)
[2019-06-07 01:41] LABS: Basophils % 0.3 %; Hematocrit 35.1 % (35.3-44.9); Hemoglobin 11.3 g/dL (11.5-15.4); Immature Granulocytes % 0.6 % (0-4); Lymphocytes # 3.7 K/mcL (0.6-4.6); Mean Corpuscular HGB Conc 32.2 g/dL (31.6-35.5); Mean Corpuscular Hemoglobin 29.7 pg (28.0-33.3); Mean Corpuscular Volume 92.4 fL (83.0-100.0); Monocytes # 1.3 K/mcL (0.0-1.3); Neutrophils # 9.5 K/mcL (1.6-8.9); Platelet Count 225 K/mcL (140-400); Segmented Neutrophils % 65.1 %
[2019-06-07 01:47] LABS: White Blood Count 14.6 K/mcL (4.3-11.1)
[2019-06-07 01:56] LABS: Alanine Aminotransferase 38 Units/L (7-52); Albumin 3.7 g/dL (3.5-5.7); Albumin/Globulin Ratio 1.5 (1.1-2.2); Alkaline Phosphatase 72 Units/L (34-104); Aspartate Amino Transferase 30 Units/L (13-39); BUN/Creatinine Ratio 14 (6-26); Bilirubin,Total 0.4 mg/dL (0.3-1.0); Blood Urea Nitrogen 11 mg/dL (6-20); Calcium 8.8 mg/dL (8.6-10.3); Carbon Dioxide 24 mEq/L (23-29); Chloride 113 mEq/L (98-107); Globulin 2.4 g/dL (2.4-3.5); Glucose 106 mg/dL (70-105); Osmolality,Calculated 292 (280-300); Potassium 3.8 mEq/L (3.5-5.1); Sodium 141 mEq/L (136-145); Total Protein 6.1 g/dL (6.4-8.9); eGFR For African Americans > 60 (> 60); eGFR For Non-African Americans > 60 (> 60)
[2019-06-07] MEDS: Levothyroxine 25 MCG TABLET PO SCH (05:45)
[2019-06-07 07:29] VITALS: BP 167/98
[2019-06-07 08:05] LABS: Hematocrit 36.5 % (35.3-44.9); Hemoglobin 11.6 g/dL (11.5-15.4); Mean Corpuscular HGB Conc 31.8 g/dL (31.6-35.5); Mean Corpuscular Hemoglobin 29.7 pg (28.0-33.3); Mean Corpuscular Volume 93.6 fL (83.0-100.0); Mean Platelet Volume 10.1 fL (9.4-12.4); Platelet Count 220 K/mcL (140-400); Red Cell Distribution Width 14.2 % (11.5-14.5); White Blood Count 12.1 K/mcL (4.3-11.1)
[2019-06-07] MEDS: Topiramate 25 MG TABLET PO SCH (09:07)
[2019-06-07] MEDS: Cholecalciferol (D-3) 1,000 UNIT (25MCG) TABLET PO SCH (09:07)
[2019-06-07] MEDS: Gabapentin 400 MG CAPSULE PO SCH (09:07)
[2019-06-07] MEDS: Aspirin Enteric Coated 81 MG Tablet PO SCH (09:07)
[2019-06-07] MEDS: cloNIDine HCl 0.1 MG TABLET PO SCH (09:08)
[2019-06-07] MEDS: Budesonide Neb 0.25 MG/2 ML IH SCH (09:37)
[2019-06-07] MEDS ORDERED: Tiotropium 18 MCG inhalation IH SCH (10:00)
== END 2019-06-07 10:49 | disposition home or self-care (01) ==
LOC: 2NENU 20:24 → EMEROOARM 20:24 → SUATTDRO 06-06 01:05 → 2NENU 06-06 01:52
PROVIDERS: ADMIT Family Medicine; ATTEND Internal Medicine